=== PATIENT | female | born 1995 | race Caucasian/White ===

== ENCOUNTER 2017-07-19 18:13 | Emergency (ER) | payer BC, SELFPAY ==
[2017-07-19 18:14] VITALS: BP 139/74; PULSE 87; RESP 16; TEMP 36.8; O2SAT 100; BMI 25.5
[2017-07-19 18:54] LABS: Absolute Lymphocyte Count 1.79 X10^3/ul (0.83-4.51); Absolute Neutrophil Count 1.7 X10^3/uL (2.0-7.7); Basophil# 0.01 X10^3/uL; Basophil% 0.3 % (0-1); Eosinophil# 0.06 X10^3/uL; Eosinophils% 1.6 % (0-5); Hematocrit 40.2 % (37-47); Hemoglobin 13.4 g/dl (12.0-15.0); Lymphocyte # 1.79 X10^3/ul (4.0); Lymphocyte % 47.2 % (19-41); Mean Corp Hgb Conc 33.3 g/gl (32-36); Mean Corpuscular Hgb 30.2 pg (27.0-32.0); Mean Corpuscular Volume 90.7 fL (81-99); Mean Platelet Vol. 9.6 fl (6.2-12.0); Monocyte# 0.27 X10^3/uL; Monocyte% 7.1 % (0-10); Neutrophil # 1.66 X10^3/uL (2.7-7.7); Neutrophil % 43.8 % (47-70); POSITIVE COUNT NO; POSITIVE DIFFERENTIAL NO; POSITIVE MORPHOLOGY NO; Platelet Count 149 K/mm3 (150-450); RBC Distribution Width CV 12.8 % (11.6-14.6); RBC Distribution Width SD 42.6 fl (35.1-43.9); Red Blood Count 4.43 M/mm3 (4.2-5.4); White Blood Count 3.8 K/mm3 (4.4-11.0)
[2017-07-19] MEDS: Ketorolac 30 MG/ML Syringe 15 MG IV (18:56)
[2017-07-19] MEDS: 0.9% Normal Saline 1,000 ML 125 ML IV (18:56)
[2017-07-19] MEDS: Ondansetron 4 MG/2 ML Vial IV (18:56)
[2017-07-19 19:10] LABS: Bacteria 0 SEEN /hpf (None Seen); Mucous, Urine 0 SEEN /hpf (<or=2+); Red Blood Cells-Urine 0 SEEN /hpf (0-5); White Blood Cells 0 SEEN /hpf (0-5)
[2017-07-19 19:12] LABS: Color, Urine Straw (Yellow); Glucose, Dipstick Normal (Normal); Ketone-Dipstick Negative (Negative); Leukocyte Esterase-Dipstick Negative /ul (Negative); Nitrite-Dipstick Negative (Negative); Occult Blood-Urine Negative /ul (Negative); Protein-Dipstick Negative (Negative); Urine Bilirubin Dipstick Negative (Negative); Urine Clarity Clear (Clear); Urine Urobilinogen Normal (Normal)
[2017-07-19 19:17] LABS: ALB/GLOB Ratio 1.3 RATIO (0.9-2.4); AST(SGOT) 21 U/L (15-37); Alanine Aminotransfer ALT/SGPT 34 U/L (13-56); Alkaline Phosphatase 47 U/L (45-117); BUN 10 mg/dL (7-18); BUN/Creat Ratio 12.7 RATIO (10-20); Calcium,Total 8.5 mg/dL (8.5-10.1); Chloride 109 mmol/L (98-107); Creatinine, Serum 0.78 mg/dL (0.55-1.02); EST Glomerular Filtration Rate 96 mL/min (>60); Est Glom Filt Rate - Afr Amer 116 mL/min (>60); Estimated Creatinine Clearance 96.86 ml/min; Glucose 94 mg/dL (74-106); Lipase 122 U/L (73-393); Potassium 3.7 mmol/L (3.5-5.1); Sodium Level 142 mmol/L (136-145)
[2017-07-19 19:18] LABS: Anion Gap 8 (5-15)
--- NOTE | 2017-07-19 19:18 | US_ITS ---
STUDY: ABDOMINAL ULTRASOUND - RIGHT UPPER QUADRANT REASON FOR VISIT: Female, 22 years old. Right upper quadrant pain TECHNIQUE: Ultrasound evaluation of the right upper quadrant was performed with real-time and static bobo-scale imaging. TECHNICAL QUALITY: Adequate. COMPARISON: None. FINDINGS: Liver: The liver measures 12.5 cm. There is normal echogenicity of the liver. The bile ducts are within normal limits. There is hepatic color flow. The direction of portal flow is hepatopetal. There is no demonstrated mass lesion. Gallbladder: Normal distended gallbladder. The gallbladder wall measures 1.6 mm. There is a negative sonographic Morrison's sign. There is no pericholecystic fluid. There are no gallstones. Common Bile Duct (C.B.D.): The common bile duct measures 2.2 mm. Pancreas: Normal size of the head, body and tail of the pancreas. There is normal echogenicity of the pancreas. There is no demonstrated pancreatic mass or cyst. Right Kidney: Normal size of the right kidney. The right kidney measures 9.1 x 5.5 x 3.3 cm. Normal renal cortex. The right cortex measures 0.7 cm. There is no demonstrated renal mass or cyst. There is no right hydronephrosis. US/Gallbladder IMPRESSION: Normal right upper quadrant ultrasound examination. Electronically Signed: Danis Valera DO at 20:06 EST Tel [phone], Service support ,
[2017-07-19 19:22] LABS: Internal QC Validated? YES +Cl - CLEAR BKGD; Pregnancy, Urine Negative Negative
[2017-07-19 19:35] LABS: Squamous Epithelial Cells - UA 0-5 SEEN /hpf (5-10)
[2017-07-19 20:28] VITALS: BP 127/66; PULSE 66; RESP 16; O2SAT 100
--- NOTE | 2017-07-19 20:31 | ED.VISSUMM ---
- ER Visit Summary Date of Service: 07/19/17 Chief Complaint: Abdominal pain History of Present Illness: The patient is a 22 F presenting with abdominal pain that started today around 12 hours ago, gradually, became worse in the right upper quadrant, she took 800 mg of ibuprofen and it eased off but then returned later. She has been nauseated for about 5 days after eating only. Pain does radiate into her right low back. She cannot tell if it was colicky or not. Denies any fevers, diarrhea, blood in her stool, urinary symptoms, last normal menstrual period was unknown because she has been on the Depakote shot. She has had decreased p.o. intake and appetite. No history of abdominal surgeries or other medical problems. Physical Examination: Tender in her lateral right upper quadrant, but otherwise her abdomen is benign. There is no guarding or rebound. Her abdomen is soft with no distention and normal bowel sounds present. Lungs clear to auscultation throughout, no history of cough. Heart is regular without murmur. No CVA tenderness, tenderness in her back, or rashes noted. Test Results: Urinalysis is negative without any blood. CBC, chemistry, liver enzymes with lipase are negative/normal. is negative. Right upper quadrant ultrasound is normal. Emergency Department Course and Treatment: After IV fluids, Zofran, Toradol, she feels much better. She was reassured, however it is possible that she could be having gallbladder problems only diagnosable with biliary HIDA scan. I do not think she needs to be admitted, that may be indicated if she continues to have problems as an outpatient. Intraluminal disease is also possible here. It also could be muscular. Do not think she has pneumonia or any pulmonary etiology. It is not pleuritic. Does not appear likely that she has ureterolithiasis, there was no hydronephrosis seen in the right kidney on the ultrasound, and she has no blood in her urine. I advise her to follow-up with her PCP if she continues to have problems, will prescribe her Zofran to use as needed at home, and advise Motrin also as needed. Also advised to take daily H2 mike or PPI. She is comfortable with this plan. Treatment Plan: As above Disposition: Discharge home Impression: Right upper quadrant abdominal pain This note was generated with Pipedrive[employer] software. It may contain incorrect words, spelling, and punctuation that were not noted in review of the chart prior to signing ED Disposition - Plan for ED Patient: Disposition: Home or Assisted Living Chief Complaint: Abd Pain Instructions: ED Abdominal Pain Unkn Cause Prescriptions: Ondansetron [Zofran] 8 mg PO Q8H PRN PRN #12 tab PRN Reason: Nausea Referrals: Louis Cortez MD [Primary Care Provider] - 3-5 Days if not improving Additional Instructions: take a daily zantac or pepcid or tagamet or omeprazole.
== END 2017-07-19 20:58 | disposition home or self-care (01) ==
PROVIDERS: Emergency Provider Emergency Medicine; Family Provider Family Medicine; PCP Family Medicine
DX: R10.11 Right upper quadrant pain (principal); R11.0 Nausea
CPT/HCPCS: 76705; 80053; 81001; 81025; 83690; 85025; 96361; 96374; 96375; 99283; J7030; A4216; J2405

== ENCOUNTER 2017-10-13 02:54 | Emergency (ER) | payer BC, SELFPAY ==
[2017-10-13 02:55] VITALS: BP 131/74; PULSE 72; RESP 16; TEMP 36.9; O2SAT 100; BMI 24.0
--- NOTE | 2017-10-13 02:56 | ED.RN ---
CALLED FOR EKG PER RN REQUEST, NO OLD EKG'S IN MUSE
--- NOTE | 2017-10-13 03:09 | EKG12_ITS ---
Test Reason : PALPITATIONS Blood Pressure : / mmHG Vent. Rate : 069 BPM Atrial Rate : 069 BPM P-R Int : 130 ms QRS Dur : 084 ms QT Int : 396 ms P-R-T Axes : -04 067 027 degrees QTc Int : 424 ms Normal sinus rhythm Normal ECG Confirmed by CRYSTAL BAY, DEEPTI ([id number]), script editor JORGE LI ([id number]) on 10/14/2017 2:54:58 PM Referred By: REILLY Confirmed By:DEEPTI ROJAS MD
--- NOTE | 2017-10-13 03:15 | RAD_ITS ---
STUDY: X-RAY CHEST REASON FOR EXAM: Female, 22 years old. Heart palpitations TECHNIQUE: PA and lateral views of the chest. COMPARISON: None. FINDINGS: The lungs are clear and expanded. There is no demonstrated pleural abnormality. Normal size heart. Normal mediastinum and quinn. Normal visualized pulmonary arteries. Normal visualized aortic arch and descending thoracic aorta. Normal visualized thoracic spine. Normal visualized ribs, clavicles, and shoulders. There is no demonstrated abnormality of the visualized soft tissue structures of the upper abdomen. RAD/Chest PA and Lateral IMPRESSION: Normal x-ray examination of the chest. Electronically Signed: Moreno Soto MD at 3:50 EDT Tel , Service support ,
[2017-10-13 03:25] LABS: Absolute Lymphocyte Count 2.48 X10^3/ul (0.83-4.51); Absolute Neutrophil Count 1.7 X10^3/uL (2.0-7.7); Eosinophil# 0.07 X10^3/uL; Eosinophils% 1.5 % (0-5); Hematocrit 37.9 % (37-47); Hemoglobin 12.9 g/dl (12.0-15.0); Lymphocyte # 2.48 X10^3/ul (4.0); Lymphocyte % 53.4 % (19-41); Mean Corpuscular Hgb 31.1 pg (27.0-32.0); Mean Corpuscular Volume 91.3 fL (81-99); Mean Platelet Vol. 9.7 fl (6.2-12.0); Monocyte# 0.42 X10^3/uL; Monocyte% 9.1 % (0-10); Neutrophil # 1.66 X10^3/uL (2.7-7.7); Neutrophil % 35.8 % (47-70); Platelet Count 170 K/mm3 (150-450); RBC Distribution Width CV 12.6 % (11.6-14.6); RBC Distribution Width SD 41.4 fl (35.1-43.9); Red Blood Count 4.15 M/mm3 (4.2-5.4); White Blood Count 4.6 K/mm3 (4.4-11.0)
[2017-10-13 03:37] LABS: POSITIVE COUNT NO; POSITIVE DIFFERENTIAL NO; POSITIVE MORPHOLOGY NO
[2017-10-13 03:48] LABS: Anion Gap 8 (5-15); BUN 17 mg/dL (7-18); Calcium,Total 8.8 mg/dL (8.5-10.1); Chloride 107 mmol/L (98-107); EST Glomerular Filtration Rate 73 mL/min (>60); Est Glom Filt Rate - Afr Amer 88 mL/min (>60); Estimated Creatinine Clearance 75.55 ml/min; Glucose 93 mg/dL (74-106); Potassium 4.1 mmol/L (3.5-5.1); Sodium Level 141 mmol/L (136-145)
--- NOTE | 2017-10-13 03:58 | ED.DCSUM_ITS ---
- ER Visit Summary Date of Service: 10/13/17 Chief Complaint: Palpitations History of Present Illness: The patient is a 22 F who presents with palpitations. It is been present all day for greater than 12 hours. She states it is intermittent. It lasts a couple of seconds. She has some mild shortness of breath associated with those episodes but is not short of breath currently. She denies any chest pain. She denies recent illness such as fevers nausea vomiting or diarrhea. She denies excessive caffeine intake. She denies illicit drug use. Physical Examination: Afebrile vitals are stable Moist mucous membranes Neck supple Heart regular rate and rhythm Lungs are clear Abdomen soft Alert Test Results: EKG shows normal sinus rhythm at a rate of 69. CBC normal BMP normal troponin negative. Chest x-ray normal. TSH elevated at 5.90. Emergency Department Course and Treatment: Patient has remained in normal sinus rhythm during cardiac monitoring here. Her workup is unremarkable except for elevation of TSH which would be more consistent with hypothyroidism and I would not expect this to cause palpitations as in hyperthyroidism. She was advised of the laboratory finding and the need for outpatient follow-up for further thyroid studies. Her stance return for new or worsening symptoms was instructed on specific signs and symptoms to monitor for. She was discharged. Treatment Plan: [] Disposition: Discharge Impression: Palpitations Elevated TSH This note was generated with [employer] dictation software. It may contain incorrect words, spelling, and punctuation that were not noted in review of the chart prior to signing ED Disposition - Plan for ED Patient: Chief Complaint: Palpitations Referrals: Louis Cortez MD [Primary Care Provider] -
--- NOTE | 2017-10-13 03:58 | ED.DEP ---
ED Disposition - Plan for ED Patient: Chief Complaint: Palpitations Instructions: ED Palpitations Referrals: Louis Cortez MD [Primary Care Provider] -
[2017-10-13 04:07] VITALS: BP 122/74; PULSE 69; RESP 18; O2SAT 97
== END 2017-10-13 04:08 | disposition home or self-care (01) ==
PROVIDERS: Emergency Provider Emergency Medicine; Family Provider Family Medicine; PCP Family Medicine
DX: R00.2 Palpitations (principal); R79.89 Other specified abnormal findings of blood chemistry; R06.00 Dyspnea, unspecified
CPT/HCPCS: 71046; 80048; 84443; 84484; 85025; 93005; 99284; A4216

== ENCOUNTER 2018-01-02 12:53 | Emergency (ER) | payer OTHER, SELFPAY ==
[2018-01-02 12:54] VITALS: BP 121/69; PULSE 96; RESP 18; TEMP 36.6; O2SAT 100; BMI 24.0
--- NOTE | 2018-01-02 13:18 | ED.VISSUMM ---
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 On arrival her blood pressure is 100/80 she does report she woke today with a URI which is able to eat and drink she has no headache chest pain abdominal pain paresthesias, she denies she is on Depo-Provera, has not been ill with fever normal bowel bladder habits again she has been eating and drinking well she feels back to baseline now Physical Examination: [] Vital signs are within normal range she is in no distress resting comforting the bed her nose is obviously congested her throat is clear her neck is supple her lungs are clear heart tones are normal abdomen soft nontender upper lower extremities unremarkable neurologically she is awake alert moving all 4 Test Results: [] Emergency Department Course and Treatment: [] Long conversation with her mother clinically she is back to her baseline she is a healthy individual no past history no risk factors I explained we could obtain screening labs etc. but she declined that, the plan that we devised together with and she agreed to be we would provide her with a light food drink, with walker as long as she had no symptoms she will be discharged from emergency department fact she felt fine actually want to go back to work and I told her that we would consider that as long she had no symptoms Treatment Plan: [] Disposition: [] Home stable Impression: [] Transient lightheadedness resolved, URI This note was generated with [employer] dictation software. It may contain incorrect words, spelling, and punctuation that were not noted in review of the chart prior to signing ED Disposition - Plan for ED Patient: Chief Complaint: Hypotension Referrals: Louis Cortez MD [Primary Care Provider] -
--- NOTE | 2018-01-02 13:21 | ED.DCSUM_ITS ---
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 On arrival her blood pressure is 100/ 80 she does report she woke today with a URI which is able to eat and drink she has no headache chest pain abdominal pain paresthesias, she denies she is on Depo-Provera, has not been ill with fever normal bowel bladder habits again she has been eating and drinking well she feels back to baseline now Physical Examination: [] Vital signs are within normal range she is in no distress resting comforting the bed her nose is obviously congested her throat is clear her neck is supple her lungs are clear heart tones are normal abdomen soft nontender upper lower extremities unremarkable neurologically she is awake alert moving all 4 Test Results: [] Emergency Department Course and Treatment: [] Long conversation with her mother clinically she is back to her baseline she is a healthy individual no past history no risk factors I explained we could obtain screening labs etc. but she declined that, the plan that we devised together with and she agreed to be we would provide her with a light food drink, with walker as long as she had no symptoms she will be discharged from emergency department fact she felt fine actually want to go back to work and I told her that we would consider that as long she had no symptoms Treatment Plan: [] Disposition: [] Home stable Impression: [] Transient lightheadedness resolved, URI This note was generated with [employer] dictation software. It may contain incorrect words, spelling, and punctuation that were not noted in review of the chart prior to signing ED Disposition - Plan for ED Patient: Chief Complaint: Hypotension Referrals: Louis Cortez MD [Primary Care Provider] -
--- NOTE | 2018-01-02 13:21 | ED.DEP ---
ED Disposition - Plan for ED Patient: Chief Complaint: Hypotension Instructions: ED Hypotension Orthostatic, ED Upper Resp Infec No Abx Tx Referrals: Louis Cortez MD [Primary Care Provider] -
== END 2018-01-02 13:36 | disposition home or self-care (01) ==
LOC: ED 13:22
PROVIDERS: Emergency Provider Emergency Medicine; Family Provider Family Medicine; PCP Family Medicine
DX: J06.9 Acute upper respiratory infection, unspecified (principal); R42 Dizziness and giddiness
CPT/HCPCS: 99282

== ENCOUNTER → 2018-03-31 10:22 | Outpatient (CLI) | payer OTHER, SELFPAY ==
[2018-03-31 12:31] LABS: Chlamydia Trachomatis by PCR Negative (Negative); Neisserai gonorrhoeae by PCR Negative (Negative); Probe Check PASS; Sample Adequacy Control PASS; Specimen Processing Control PASS
== END ==
PROVIDERS: Visit Provider Obstetrics & Gynecology
DX: Z11.3 Encounter for screening for infections with a predominantly sexual mode of transmission (principal)
CPT/HCPCS: 87491; 87591

== ENCOUNTER 2019-01-24 19:19 | Emergency (ER) | payer OTHER, SELFPAY ==
[2019-01-24 19:20] VITALS: BP 137/84; PULSE 68; RESP 16; TEMP 36.8; O2SAT 100; BMI 25.4
[2019-01-24] MEDS: Mag Hydrox/Al Hydrox/Simeth 30 ML UDC PO (19:49)
[2019-01-24 19:53] LABS: Absolute Lymphocyte Count 1.35 X10^3/uL (0.83-4.51); Absolute Neutrophil Count 2.6 X10^3/uL (2.0-7.7); Basophil# 0.01 X10^3/uL; Basophil% 0.2 % (0-1); Eosinophil# 0.14 X10^3/uL; Eosinophils% 3.1 % (0-5); Hematocrit 38.9 % (37-47); Hemoglobin 12.7 g/dL (12.0-15.0); Lymphocyte # 1.35 X10^3/ul (4.0); Lymphocyte % 29.7 % (19-41); Mean Corp Hgb Conc 32.6 g/dL (32-36); Mean Corpuscular Hgb 30.3 pg (27.0-32.0); Mean Corpuscular Volume 92.8 fL (81-99); Mean Platelet Vol. 9.6 fl (6.2-12.0); Monocyte# 0.46 X10^3/uL; Monocyte% 10.1 % (0-10); NRBC Flagged by Analyzer 0 % (0-5); Neutrophil # 2.56 X10^3/uL (2.7-7.7); Neutrophil % 56.5 % (47-70); Platelet Count 161 K/mm3 (150-450); RBC Distribution Width CV 12.3 % (11.6-14.6); Red Blood Count 4.19 M/mm3 (4.2-5.4); White Blood Count 4.5 K/mm3 (4.4-11.0)
[2019-01-24] MEDS: 0.9% Normal Saline 1,000 ML 125 ML IV (20:00)
[2019-01-24 20:13] LABS: Internal QC Validated? YES +Cl - CLEAR BKGD; Pregnancy, Serum, hCG Quali. NEGATIVE Negative
[2019-01-24 20:18] LABS: ALB/GLOB Ratio 1.2 RATIO (0.9-2.4); AST(SGOT) 17 U/L (15-37); Alanine Aminotransfer ALT/SGPT 20 U/L (13-56); Albumin, Serum 3.7 g/dL (3.2-5.0); Alkaline Phosphatase 55 U/L (45-117); Anion Gap 5 (5-15); BUN 9 mg/dL (7-18); BUN/Creat Ratio 11.6 RATIO (10-20); Calcium,Total 8.4 mg/dL (8.5-10.1); Chloride 110 mmol/L (98-107); Creatinine, Serum 0.77 mg/dL (0.55-1.02); EST Glomerular Filtration Rate 97 mL/min (>60); Est Glom Filt Rate - Afr Amer 117 mL/min (>60); Estimated Creatinine Clearance 96.45 ml/min; Glucose 89 mg/dL (74-106); Lipase 117 U/L (73-393); Potassium 4.1 mmol/L (3.5-5.1); Protein, Total 6.7 g/dL (6.4-8.2); Sodium Level 142 mmol/L (136-145)
--- NOTE | 2019-01-24 20:33 | ED.DCSUM_ITS ---
- ER Visit Summary Date of Service: 01/24/19 Chief Complaint: [Abdominal pain] History of Present Illness: The patient is a 24 F [presents to the emergency department complaint of abdominal pain that started yesterday around 1:30 AM. Patient describes the pain is intermittent and in the epigastric region. Today the pain has been low more continuous. Patient states that food deftly seems to make it worse. She had some mild nausea but no vomiting. She denies any blood in her stool or black tarry stools. She denies taking any nonsteroidal anti- inflammatories. Last menstrual period was yesterday. Patient is G0, P0. Patient denies urinary symptoms. She has no medical history otherwise. No prio r abdominal surgeries.] Patient states the pain is currently a 2 or 3 out of 10. Physical Examination: [HEENT-PERRLA, EOMI. Cranial nerves II through XII grossly intact. TMs clear. Mucous membranes moist. No adenopathy. Cardiovascular-regular rate and rhythm without murmur or ectopy Lungs-clear to auscultation, chest wall stable without crepitus or subcu emphysema Abdomen-normoactive bowel sounds, soft. Patient has some mild tenderness to the epigastric region. There is no rebound, rigidity, or perineal signs. Negative Morrison sign. Extremities-intact ?4, normal range of motion, normal pulses, atraumatic] Test Results: [CBC with differential was normal. Chemistries were normal. LFTs were normal. Lipase was 117. Urinalysis normal. hCG was negative.] Emergency Department Course and Treatment: [Patient was given a GI cocktail and she did have some improvement in her discomfort with that.] Treatment Plan: [She will be started on Prevacid. At this point I do not feel any imaging is indicated. Patient advised to avoid spicy and greasy foods as well as acidic foods. Patient will be referred to general surgery [employer] [facility] for follow-up.] Disposition: [Discharged home stable condition. Patient advised to return if worsening pain, fever, vomiting, or conditions worsen anyway.] Impression: [Abdominal pain Gastritis] This note was generated with [employer] dictation software. It may contain incorrect words, spelling, and punctuation that were not noted in review of the chart prior to signing ED Disposition - Plan for ED Patient: Referrals: Louis Cortez MD [Primary Care Provider] -
[2019-01-24 20:41] LABS: Bacteria 0 SEEN /hpf (None Seen); Mucous, Urine 0 SEEN /hpf (<or=2+); Red Blood Cells-Urine 0 SEEN /hpf (0-5)
[2019-01-24 20:43] LABS: Color, Urine Yellow (Yellow); Glucose, Dipstick Normal (Normal); Ketone-Dipstick Negative (Negative); Leukocyte Esterase-Dipstick 25 /ul (Negative); Nitrite-Dipstick Negative (Negative); Occult Blood-Urine 10 /ul (Negative); Protein-Dipstick Negative (Negative); Urine Bilirubin Dipstick Negative (Negative); Urine Clarity Clear (Clear); Urine Urobilinogen Normal (Normal)
[2019-01-24 20:55] LABS: Squamous Epithelial Cells - UA 0-5 SEEN /hpf (5-10); White Blood Cells 0-5 SEEN /hpf (0-5)
--- NOTE | 2019-01-24 21:14 | ED.DEP ---
ED Disposition - Plan for ED Patient: Instructions: ABDOMINAL PAIN, Unknown Cause, (Female), GASTRITIS vs. ULCER Prescriptions: Lansoprazole [Prevacid] 30 mg PO DAILY #30 cap Prescription Printed Referrals: Louis Cortez MD [Primary Care Provider] - Sarah Loco MD [STAFF PHYSICIAN] - 3-5 Days
[2019-01-24 21:24] VITALS: BP 116/71; PULSE 84; RESP 16; O2SAT 100
== END 2019-01-24 21:25 | disposition home or self-care (01) ==
PROVIDERS: Emergency Provider Emergency Medicine; Family Provider Family Medicine; PCP Family Medicine
DX: K29.70 Gastritis, unspecified, without bleeding (principal)
CPT/HCPCS: 80053; 81001; 83690; 84703; 85025; 96360; 96361; 99284; J7030; A4216

== ENCOUNTER 2019-02-20 05:58 | Day surgery (SDC) | payer OTHER, SELFPAY ==
--- NOTE | 2019-02-14 18:59 | PCM.HP.BLA ---
History and Physical Date of Admission: 02/20/19 Micaela Villegas 1995 ? ?? CHIEF COMPLAINT: abdominal pain ? HPI: The patient is a 24 year old female who presents with sudden onset of epigastric abdominal pain went to ED [facility] on 01/24/19 states it was 10/10 pain on a scale of 1-10 with 10 being the worst. Labs were normal. A GI cocktail didn't help - she was given IV fluids, no xrays done, rec'd antacid and discharged. Patient denies heartburn or burning acid indigestion symptoms. States that the pain is sharp and crampy, mostly occurs after eating. She had pain for 5 days with above episode, and then it resolved on its own She is afraid to eat, doesn't want pain to return. During the above, she tried TUMS - it didn't help, she also tried antacids with no relief. 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 Denies fevers. Today, she feels only soreness in the area. ? ? PAST MEDICAL HISTORY ? NEGATIVE MEDICAL HISTORY ? ? PAST SURGICAL HISTORY ? PAST SURGICAL HISTORY OF ? 2013 ? wisdom teeth extraction ? TONSILLECTOMY AND ADENOIDECTOMY HX ? 2001 ? ? Current Outpatient Medications: OTC PRODUCT Take by mouth once daily. Nutritional supplement called Balance famotidine (PEPCID AC) 20 mg tablet Take 20 mg by mouth once daily. ? ? ALLERGIES: Bactrim [Sulfamethoxazole-Trimethoprim]; Sulfa (Sulfonamide Antibiotics) ? PERSONAL HISTORY: Social History Socioeconomic History Marital status: Tobacco Use Smoking status: Never Smoker Smokeless tobacco: Never Used Substance and Sexual Activity Alcohol use: Yes Comment: rarely Drug use: Never ? FAMILY HISTORY: History reviewed. No family history of gallbladder disease. ? REVIEW OF SYSTEMS: General: The patient denies fatigue, denies weight loss, denies weight gain, denies feeling hot, and denies feelings of cold. Eyes: The patient denies glaucoma, denies eye injury/surgery, wears glasses or contacts. Ear/Nose/Throat: The patient notes allergies, denies hayfever, denies ear infections, and denies bloody noses. Cardiovascular: The patient denies chest pain, denies heart disease, denies high blood pressure,denies cardiac stent, denies prior heart attack, denies irregular heart beat, denies high cholesterol, denies poor circulation, denies heart failure, other cardiac issues, denies claudication, denies cold feet, denies peripheral arterial stent. Respiratory: The patient denies tuberculosis, denies pneumonia, denies frequent cough, denies pulmonary embolism, denies shortness of breath, and denies coughing up blood. Gastrointestinal: The patient denies difficulty swallowing, denies acid reflux, denies ulcers, denies vomiting, denies jaundice/hepatitis, denies gallbladder problems, denies black or tarry stools, denies hemorrhoids, denies bleeding from rectum, denies diverticulitis, denies constipation, denies diarrhea, denies loss of stool control, and denies hernias. Kidney/Bladder: The patient denies kidney stones, denies urine infections, and denies bloody urine. Skin: The patient denies a history of skin cancer, denies bleeding/changing moles, and denies a history of skin rash. Neurologic: has migraine headaches occasionally, denies a history of epilepsy/convulsions, denies head/spinal injuries, and denies stroke/TIA. Psychiatric: The patient denies psychiatric medications, denies depression, and denies voices, denies substance abuse. Endocrine: The patient denies thyroid disorders, denies diabetes, and denies hormonal problems. Hematologic: The patient denies a history of bruising, denies bleeding, and denies anemia, denies blood clots. Infections: The patient denies a history of measles and mumps, denies rheumatic fever, and denies sexually transmitted diseases. Musculoskeletal: The patient notes back pain/injury, denies back problems, denies sciatica, denies knee/foot trouble, denies arthritis, or denies gout. ? PHYSICAL EXAMINATION: General: The patient is 24 year old female, well nourished, well hydrated in no acute distress. The patient is oriented to time, place, and person. VITALS: Blood pressure 94/50, pulse 89, temperature 37 ?C (98.6 ?F), temperature source Temporal Artery, height 162.6 cm (5' 4), weight 65.6 kg (144 lb 9.6 oz), SpO2 99 %. Body mass index is 24.82 kg/m?. Head ? Normocephalic. EOM intact with sclera clear and no icterus noted. Mouth with mucus membranes moist. Neck - supple with no jugular venous distention noted. Trachea is midline. No masses noted. Lungs ? clear to auscultation. Normal breath sounds . No rales/rhonchi/wheezing noted. No labored breathing noted, such as retractions. No cough heard. Heart ? normal S1 and S2 auscultated. No rubs/clicks/murmurs noted. Regular rate. Abdomen ? soft but tender in the epigastric and right upper quadrants, but no peritoneal signs. Normal bowel sounds. No abdominal bruits noted. No distention noted. No masses noted. Extremities ? no calf tenderness noted. No pitting edema noted. No obvious deformity noted. Skin ? normal skin integrity. Neurological ? cranial nerves II-XII intact. Normal motor strength in arms and legs. No localized numbness detected. Psych ? calm and appropriate ? IMPRESSION: epigastric and right upper quadrant abdominal pain - ? PLAN: I have discussed the above with the patient. I have offered laparoscopic cholecystectomy, possible cholangiograms. She has been counseled as to the description of the procedure. SHe has been counseled as to the risks of the procedure, including but not limited to: infection, bleeding, injury to any blood vessels/nerves, scar tissue, injury to any intrabdominal organs, injury to kidney/ureters, injury to bowel/bladder, injury to the common bile duct/biliary tree, bile leakage, intraabdominal abscess/bleeding, hernias at incisional sites, non resolution of symptoms, wound infections, possible open procedure, complications of anesthesia, postoperative pneumonia/cardiac problems/blood clots etc. the patient understands. Most importantly, this surgery may not alleviate her symptoms. She wishes to proceed. I have answered all questions to the patient?s satisfaction and the patient has no further questions. I have answered all questions to the patient?s satisfaction and the patient has no further questions. ? . Diagnoses: (R10.13) Epigastric abdominal pain (primary encounter diagnosis) Return to Clinic: The patient is instructed to follow-up with me as above
--- NOTE | 2019-02-20 06:10 | EKG12_ITS ---
Test Reason : PREOP Blood Pressure : / mmHG Vent. Rate : 067 BPM Atrial Rate : 067 BPM P-R Int : 156 ms QRS Dur : 088 ms QT Int : 414 ms P-R-T Axes : 062 057 029 degrees QTc Int : 437 ms Normal sinus rhythm with sinus arrhythmia Normal ECG Confirmed by LORRAINE REGAN ([id number]), communications editor JORGE LI ([id number]) on 03/03/2019 1:13:06 PM Referred By: Sarah Loco Confirmed By:LORRAINE REGAN
[2019-02-20 06:23] VITALS: BP 115/67; PULSE 57; RESP 16; TEMP 36.9; O2SAT 100; BMI 24.5
[2019-02-20] MEDS: Lactated Ringers 1,000 ML 100 ML IV (06:44)
--- NOTE | 2019-02-20 07:11 | DCINST_ITS ---
Discharge Diet: No Restrictions - avoid carbonated beverages for a couple of days drink plenty of fluids Discharge Activity: Return to Normal Activity, May not drive while taking narcotic pain medications. Lifting Restrictions: no lifting greater than 20 pounds for 2 weeks Call your doctor if your incision/area has: Continuous Slow Oozing, Foul Smelling Discharge Call your doctor if you observe: Fever of 101 or Higher Additional Dressing/Incision Instructions:: Leave dressings in place. May get wet in shower. Do not soak - no tub baths/swimming Additional Instructions: Recommended pain medication regimen: take 650 mg acetaminophen (Tylenol), then in three hours take 600 mg ibuprofen (Motrin), then in three hours take 650 mg acetaminophen, then in three hours take 600 mg ibuprofen, and so on, for 2-3 days Take prescription narcotic pain medication for breakthrough pain and at night Allergies/Adverse Reactions: Allergies Sulfa (Sulfonamide Antibiotics) Allergy (Verified 02/20/19 06:23) Hives sulfamethoxazole [From Bactrim] Allergy (Verified 02/20/19 06:23) Hives trimethoprim [From Bactrim] Allergy (Verified 02/20/19 06:23) Hives Medications to take at Discharge cholecalciferol (vitamin D3) 1,000 unit capsule 1,000 unit PO ONCE 05/03/17 omega-3 fatty acids 1,000 mg capsule 1,000 mg PO QDAY 05/03/17 Ascorbic Acid [Vitamin C] 500 mg PO DAILY 07/19/17 Vitamin B Complex [Balance B-100] 1 ea PO DAILY 02/13/19 Hydrocodone Bitart/Apap 5-325 [[place] 5MG-325MG] 1 tab PO Q8H PRN PRN 5 Days #15 tab 02/20/19 The following prescriptions were given: Hydrocodone Bitart/Apap 5-325 [[place] 5MG-325MG] 1 tab PO Q8H PRN PRN 5 Days #15 tab PRN Reason: Pain Prescription Printed Test Results: Test results from this visit will be discussed in further detail at your follow- up appointment, if applicable. Please Follow Up With: Sarah Loco MD - call When: to be seen in 1-2 weeks, please call for date and time, thank you
[2019-02-20 07:14] LABS: Internal QC Validated? YES +Cl - CLEAR BKGD; Pregnancy, Urine Negative Negative
--- NOTE | 2019-02-20 07:30 | RAD_ITS ---
STUDY: INTRAOPERATIVE CHOLANGIOGRAM. REASON FOR EXAM: Female, 24 years old. Laparoscopic cholecystectomy. FLUOROSCOPY TIME (if supplied): (0:09) minutes/seconds. Single views was submitted. TECHNIQUE: Intraoperative cholangiography was performed by the surgeon. Imaging was provided. COMPARISON: None. FINDINGS: A single view was submitted. The intrahepatic ducts are unremarkable. The common bile duct is not dilated. No intraluminal filling defect is seen. RAD/Cholangiogram/ O R,Initial IMPRESSION: Unremarkable intraoperative cholangiogram. Electronically Signed: Yasir Luz, at 10:33 EDT , Service support ,
--- NOTE | 2019-02-20 07:30 | GALL_PTH ---
PATIENT: JHON BLANCO LOC: [facility] U#:[id number] AGE/SX: 24/F ROOM: RE02/20/[address]: Dr. Sarah Loco MD : 1995 BED: DIS: 02/20/2019 SPEC #: [id number] RECD: 02/20/19 11:04 STATUS: STEVE REEvy #: [id number] EKLLY: 02/20/19 07:[address]: Sarah Loco DEPT: SURGICAL PATHOLOGY RECD BY: Jeffrey Pham ENTERED: 02/20/19 12:00 SP TYPE: DEEPIKA CALHOUN DR: Dr. Louis Cortez MD Tissues: Gallbladder, NOS Procedures: Surgery Specimen Level III HEADER OPERATION: Laparoscopic cholecystectomy with IOC PRE-OP DIAGNOSIS: Epigastric abdominal pain R10.13 TISSUE SUBMITTED: Gallbladder MICROSCOPIC DIAGNOSIS Gallbladder, cholecystectomy: Chronic cholecystitis. Benign pericystic lymph node. AM:vivi 02/23/19 MICROSCOPIC DESCRIPTION Slides are reviewed. GROSS DESCRIPTION Received is one container labeled with the patient's name and designated gallbladder. The specimen consists of a gallbladder measuring 6.5 cm in length and 2.5 cm in diameter. The external surface is pink-frey, smooth and glistening for the most part. Focally it is granular, hemorrhagic and contains cautery artifact. The gallbladder contains green-yellow mucoid bile. No stones are identified in the container or in the gallbladder. The mucosa is bile-stained and without any mass lesions. The gallbladder wall measures up to 0.2 cm in thickness. Peanut Vendor sections from the gallbladder and the cystic duct are submitted in one cassette. / SJ:vivi 02/20/19 TC:3 CPT: 37380
--- NOTE | 2019-02-20 08:42 | PCM.OPRPT ---
Report of Operation Date of Procedure: 02/20/19 Pre-Operative Diagnosis: epigastric abdominal pain Post-Operative Diagnosis: same Surgery/Procedure Performed:: laparoscopic cholecystectomy with cholangiograms Description of Surgical Findings:: normal intraoperative cholangiograms Type of Anesthesia:: General Anesthesiologist: Dawood Kline Specimen's removed: gallbladder and contents Estimated Blood Loss (mL): < 10 ml Fluids Replaced: 1100 ml RL Description of Procedure: After informed consent was given, the patient was brought to the Operating Room. Appropriate time out protocol was followed. She was then placed in the supine position. The patient was then placed under general endotracheal anesthesia. The abdomen was then prepped with a sterile surgical skin preparation and sterile surgical drapes were placed. The infraumbilical skin fold was grasped with penetrating clamps and the skin and subcutaneous tissues were infiltrated with 0.25% marcaine with epinephrine. A skin incision was then made with a 11 blade scalpel. The anterior abdominal wall was elevated and a Veress needle was carefully inserted into the intraabdominal cavity. It was checked to be in the proper position with a normal saline drop test. A CO2 pneumoperitoneum was then created. Once this was achieved, then the Veress needle was removed and an 11mm trocar was placed in its stead. A 10mm laparoscope was then inserted into the trocar and careful attention was directed to the intraabdominal contents. There was no evidence of injury to any intraabdominal organs from insertion of the Veress needle or the trocar. Under direct visualization, a 5mm subxiphoid trocar and two lateral 5mm right subcostal trocars were placed. The skin and subcutaneous tissues at these sites were infiltrated with 0.25% marcaine with epinephrine prior to placement of these trocars. Attention was then directed to the right upper quadrant of the abdomen. The liver appeared normal in texture and color. The gallbladder appeared normal in size and texture and color. Graspers were placed in the lateral trocars to grasp the distal aspect of the gallbladder and direct it cephalad and to grasp the gallbladder at Sena?s pouch and direct it laterally. Dissection then began on the proximal gallbladder continuing down to the area of the triangle of Calot to bluntly dissect out the cystic duct. The neck of the gallbladder was identified and blunt dissection continued to dissect out a segment of the cystic duct. A clip was then placed on the neck of the gallbladder. A small ductotomy was then made. A Ranfac catheter was brought in through a separate skin incision and placed into the cystic duct. An intraoperative cholangiogram was performed under fluoroscopy. The xray revealed no lesions in the common bile duct, arborization of the biliary tree, and good flow into the duodenum. The Ranfac catheter was then removed and two clips were placed proximal to the ductotomy and the cystic duct was then transected. The cystic artery was visualized and bluntly isolated and then two clips were placed proximally and one clip distally and then it was transected between the proximal and distal clips. The gallbladder was then from the liver bed using electrocautery. Any active bleeding was controlled with electrocautery. The gallbladder was placed in an Endobag and thus able to be brought out of the umbilical port. It was then forwarded to pathology for analysis. Using the irrigation device, lavage and aspiration was done to irrigate and clear the right upper quadrant of the abdomen. The liver bed was carefully examined. There was no evidence of bile leakage or bleeding. The cystic duct stump and cystic artery stump had their clips intact and there was no evidence of bile leakage or bleeding. The remainder of the abdomen was grossly normal. The CO2 was released and all trocars removed intact. The periumbilical fascia was approximated with a [id number] 0 vicryl suture. All skin incision were closed with 4-0 monocryl in a subdermal fashion. Cavilol and Steristrips were used to reinforce the skin closure. Sterile dressings were applied to all wounds. The patient was extubated and brought to the Recovery Room in stable condition. - Complications none noted - Admit VTE Documentation VTE Present on Admission: Yes VTE Mechan Device Prophylaxis: SCD's
[2019-02-20 09:01] VITALS: BP 115/67; BP 116/69; PULSE 69; RESP 20; TEMP 36.5; O2SAT 99
[2019-02-20 09:15] VITALS: BP 113/52; BP 115/67; PULSE 62; RESP 16; O2SAT 100
[2019-02-20 09:30] VITALS: BP 115/67; BP 95/60; PULSE 56; RESP 16; O2SAT 100
[2019-02-20 09:37] VITALS: BP 115/67; BP 96/44; PULSE 60; RESP 16; TEMP 37.6; O2SAT 100
[2019-02-20 11:57] VITALS: BP 106/59; BP 115/67; PULSE 61; RESP 16; TEMP 36.6; O2SAT 99
== END 2019-02-20 12:12 | disposition home or self-care (01) ==
LOC: SDC 06:00 → AC 06:00
PROVIDERS: Anesthesiology; Family Provider Family Medicine; PCP Family Medicine; Referring Provider Surgery; Visit Provider Surgery
PROC: (CPT 47610; principal; 2019-02-20 07:10)
DX: K81.1 Chronic cholecystitis (principal); Z88.2 Allergy status to sulfonamides
CPT/HCPCS: 00790; 47563; 74300; 76000; 81025; 88304; 93005; J7120; J2405

== ENCOUNTER 2019-02-22 16:00 | Observation (INO) | payer OTHER, SELFPAY ==
[2019-02-22 16:01] VITALS: BP 130/73; PULSE 67; RESP 17; TEMP 36.9; O2SAT 100; BMI 24.0
--- NOTE | 2019-02-22 16:22 | ED.VISSUMM ---
- ER Visit Summary Date of Service: 02/22/19 Chief Complaint: Abdominal pain History of Present Illness: The patient is a 24 F who presents with abdominal pain that began today. Patient had a cholecystectomy done 2 days ago. Patient states the pain woke her up at approximately 3 AM today. Patient states the pain began suddenly. Patient describes the pain as sharp. Patient states the pain is over the right upper quadrant. Patient states the pain is worse when she stands upright. Patient admits to nausea but denies any vomiting. Patient denies any dysuria or hematuria. Patient denies any diarrhea, melena, or hematochezia. Patient denies any fevers or chills. Patient does admit to some pain in her chest and shortness of breath. Patient states she has been taking [place] and ibuprofen with no relief. Physical Examination: Vital signs are stable. Patient is afebrile. Patient is in no acute distress. Oral mucosa is pink and moist. Neck is supple. Trachea is midline. There is no JVD noted. Heart was regular rate and rhythm. Lungs are essentially clear to auscultation. Respiratory effort was limited secondary to the abdominal pain. Abdomen is soft. Bowel sounds are diminished. There is right upper quadrant tenderness. There is some voluntary guarding noted. Cranial nerves II through XII are intact. There are no focal motor or sensory deficits noted. Test Results: CBC showed slight thrombocytopenia of 147. White blood cell count was normal. Hemoglobin was normal. Comprehensive metabolic profile was essentially within normal limits. Lipase was normal. CTA of the chest was obtained. There is no pulmonary embolism noted. CT scan of the abdomen and pelvis was obtained. There is fluid in the right upper quadrant including the gallbladder fossa which may indicate a bile leak. This was interpreted by the radiologist. Emergency Department Course and Treatment: Patient was given IV fluids, morphine, and Zofran here. Patient had no improvement of her pain with the morphine. Patient was given a dose of Dilaudid here. Patient her pain was improved but was still present. Case was discussed with Dr. Loco. She will admit the patient to her service and obtain a HIDA scan tomorrow. Patient and family understood and were agreeable with the plan. All questions were answered. Disposition: Admit to hospital Impression: Right upper quadrant abdominal pain This note was generated with [employer] software. It may contain incorrect words, spelling, and punctuation that were not noted in review of the chart prior to signing ED Disposition - Plan for ED Patient: Disposition: Acute Care Hospital [facility] Diagnosis: Right upper quadrant abdominal pain Referrals: Louis Cortez MD [Primary Care Provider] -
[2019-02-22] MEDS: Ondansetron 4 MG/2 ML Vial IV (16:31)
[2019-02-22] MEDS: 0.9% Normal Saline 1,000 ML 1000 ML IV (16:31)
[2019-02-22] MEDS: Morphine 4 MG/ML Syringe IV (16:31)
[2019-02-22 16:59] LABS: ALB/GLOB Ratio 1.2 RATIO (0.9-2.4); AST(SGOT) 30 U/L (15-37); Alanine Aminotransfer ALT/SGPT 49 U/L (13-56); Albumin, Serum 3.8 g/dL (3.2-5.0); Alkaline Phosphatase 56 U/L (45-117); Anion Gap 8 (5-15); BUN 4 mg/dL (7-18); Calcium,Total 8.9 mg/dL (8.5-10.1); Chloride 107 mmol/L (98-107); Creatinine, Serum 0.57 mg/dL (0.55-1.02); EST Glomerular Filtration Rate 137 mL/min (>60); Est Glom Filt Rate - Afr Amer 166 mL/min (>60); Estimated Creatinine Clearance 130.29 ml/min; Globulin 3.2 g/dL (2.2-4.2); Glucose 103 mg/dL (74-106); Lipase 59 U/L (73-393); Potassium 4.4 mmol/L (3.5-5.1); Sodium Level 139 mmol/L (136-145)
[2019-02-22 17:06] LABS: Absolute Lymphocyte Count 0.85 X10^3/uL (0.83-4.51); Absolute Neutrophil Count 5.4 X10^3/uL (2.0-7.7); Basophil# 0.01 X10^3/uL; Basophil% 0.1 % (0-1); Eosinophil# 0.04 X10^3/uL; Eosinophils% 0.6 % (0-5); Hematocrit 38.8 % (37-47); Hemoglobin 12.7 g/dL (12.0-15.0); Lymphocyte # 0.85 X10^3/ul (4.0); Lymphocyte % 12.5 % (19-41); Mean Corp Hgb Conc 32.7 g/dL (32-36); Mean Corpuscular Volume 91.5 fL (81-99); Mean Platelet Vol. 9.8 fl (6.2-12.0); Monocyte# 0.52 X10^3/uL; Monocyte% 7.7 % (0-10); NRBC Flagged by Analyzer 0 % (0-5); Neutrophil # 5.35 X10^3/uL (2.7-7.7); Neutrophil % 78.8 % (47-70); Platelet Count 147 K/mm3 (150-450); RBC Distribution Width CV 12.2 % (11.6-14.6); RBC Distribution Width SD 41.2 fl (35.1-43.9); Red Blood Count 4.24 M/mm3 (4.2-5.4); White Blood Count 6.8 K/mm3 (4.4-11.0)
--- NOTE | 2019-02-22 17:13 | CT_ITS ---
STUDY: CTA CHEST REASON FOR EXAM: Female, 24 years old. Chest pain. Status post cholecystectomy 2 days ago. RADIATION DOSAGE (If Supplied By Facility): CTDIvol = ( 7.63 ) mGy, DLP = ( 666.80 ) mGycm TECHNIQUE: The examination was performed with the intravenous administration of IV Isovue 370 75. Post-processing of the angiographic images was performed, with multiplanar reformation and 3D reconstruction. Individualized dose optimization techniques were used for this CT. COMPARISON: None. FINDINGS: Normal enhancement of the main pulmonary artery and right and left pulmonary arteries. Normal enhancement of the bilateral peripheral pulmonary arteries. There is no demonstrated pulmonary embolism. Normal thoracic aorta and visualized great vessels. There is no demonstrated aortic dissection. Normal heart and pericardium. Normal mediastinum. Normal hilar regions. Normal visualized trachea and bronchi. There is minimal bibasilar atelectasis within the lower lobes. Normal chest wall structures. Normal osseous structures. There is a separate dedicated CT report of the abdomen and pelvis. CT/CTA Chest W/WO Contrast IMPRESSION: No demonstrated pulmonary embolism or arterial dissection. Minimal bibasilar atelectasis within the lower lobes. Electronically Signed: Madison Ferraro MD at 18:25 EDT Tel , Service support ,
--- NOTE | 2019-02-22 17:13 | CT_ITS ---
STUDY: CT ABDOMEN AND PELVIS WITH CONTRAST REASON FOR EXAM: Female, 24 years old. Shortness of breath. Status post cholecystectomy 2 days ago. RADIATION DOSAGE (If Supplied By Facility): CTDIvol = ( 7.63 ) mGy, DLP = ( 666.80 ) mGycm TECHNIQUE: Transaxial images were obtained from the dome of the diaphragm to the symphysis pubis without oral contrast. IV 75mL Isovue-370 75 was administered. Sagittal and coronal images were reconstructed. Individualized dose optimization techniques were used for this CT. COMPARISON: None. FINDINGS: There is a separate dedicated CT report of the chest. There is intraperitoneal free air consistent with recent cholecystectomy associated with subcutaneous air along the right anterior chest wall and within the umbilicus. Normal liver. The gallbladder surgically absent. There is fluid within the gallbladder fossa as well as within the right upper quadrant. There is associated fluid within the pelvis. Normal spleen. Normal pancreas. Normal bilateral adrenal glands. Normal right kidney. Normal left kidney. Normal visualized stomach. Normal small intestine. Normal colon. The appendix is visualized and appears normal. Normal abdominal aorta. Normal inferior vena cava. Normal retroperitoneum. Normal urinary bladder. Normal osseous structures. CT/Abdomen/Pelvis W IV Cont ONLY IMPRESSION: Fluid within the right upper quadrant, including within the gallbladder fossa, as well as within the pelvis, cannot exclude an underlying bile leak. Intraperitoneal free air consistent with recent cholecystectomy associated with postsurgical changes along the right anterior abdominal wall. Electronically Signed: Madison Ferraro MD at 18:34 EDT Tel , Service support ,
[2019-02-22] MEDS: HYDROmorphone 1 MG/ML Syringe IV ×2 (17:15→19:56)
[2019-02-22 18:16] VITALS: BP 128/68; PULSE 68; RESP 14; O2SAT 98
[2019-02-22 20:14] VITALS: BMI 24.5
[2019-02-22 20:26] VITALS: BP 134/82; PULSE 74; RESP 24; TEMP 37.3; O2SAT 99
[2019-02-22 20:44] VITALS: PULSE 70
[2019-02-22] MEDS: Lactated Ringers 1,000 ML 100 ML IV (21:10)
[2019-02-22] MEDS: 0.9% NaCl Peripheral Flush Adult/Peds IV (21:10)
[2019-02-22] MEDS: HYDROmorphone 0.5 MG/0.5 ML SYRINGE IV (21:23)
[2019-02-22] MEDS: Ensure Clear 120 ML Liquid PO (22:02)
[2019-02-22] MEDS: Ketorolac 30 MG/ML Syringe IV (23:35)
[2019-02-23] VITALS (11 sets, daily range): BP systolic 116–132; BP diastolic 63–79; PULSE 57–95; RESP 12–18; TEMP 36.8–37.6; O2SAT 96–100; BMI 24.5
--- NOTE | 2019-02-23 00:20 | NURSING ---
Verbal report given to Saarh Olson RN who will be assuming care for this pt.
--- NOTE | 2019-02-23 05:55 | NM_ITS ---
STUDY: HEPATOBILARY SCINTGRAPHY REASON FOR EXAM: Female, 24 years old. Abdominal pain, history of recent cholecystectomy. COMPARISON STUDIES : NM - None. CR - Not available for review at this time. CT - Not available for review at this time. MR - Not available for review at this time. 5 Technique: After the administration of 5.6 mCi of technetium 99m Choletec intravenously, multiple scintigraphic images of the abdomen were obtained.. Findings: Homogeneous uptake of radiopharmaceutical throughout the hepatic parenchyma. Prompt excretion into the biliary tree first seen on the 10 minute image. Passage of radiopharmaceutical from the biliary tree into the small bowel ensuring patency of the common bile duct. On more delayed images there is a focal area of uptake in the gallbladder fossa which slightly increases in uptake over time but remains focal suggestive of a bile leak with biloma. NM/Hepatobilliary Imaging IMPRESSION: Suspect bile leak into a small biloma in the gallbladder fossa. Electronically Signed: Kulwant Dewitt MD at 11:06 EDT Tel , Service support ,
[2019-02-23] MEDS: Ketorolac 30 MG/ML Syringe IV ×3 (06:00→17:23)
[2019-02-23] MEDS: Lactated Ringers 1,000 ML 100 ML IV ×2 (06:01→15:58)
--- NOTE | 2019-02-23 07:34 | HP.PCM_ITS ---
History and Physical Date of Admission: 02/22/19 status post lap lynnette CHIEF COMPLAINT: abdominal pain ? HPI: Micaela is a 24 y/o WF who presents with intractable right upper quadrant abdominal pain. She underwent laparoscopic cholecystectomy with IOC on 02/20/19 for right upper quadrant abdominal pain. IOC was normal. She had some right upper quadrant abdominal pain after surgery but states that she woke up at 3:00 am yesterday morning with severe right upper quadrant abdominal pain. She presented to ED and was found to have normal WBC, was afebrile, normal LFTs, but CT scan had fluid in the area of the gallbladder fossa, and therefore, possible bile leak. Patient admitted for pain control and consideration of HIDA scan this morning. Patient also complaint of constipation, no bowel movement since prior to surgery ? ? PAST MEDICAL HISTORY ? NEGATIVE MEDICAL HISTORY ? ? PAST SURGICAL HISTORY PAST SURGICAL HISTORY OF 2013 wisdom teeth extraction TONSILLECTOMY AND ADENOIDECTOMY HX ? 2001 laparoscopic cholecystectomy with IOC 02/20/19 ? ? Current Outpatient Medications: OTC PRODUCT Take by mouth once daily. Nutritional supplement called Balance famotidine (PEPCID AC) 20 mg tablet Take 20 mg by mouth once daily. norco prn ? ? ALLERGIES: Bactrim [Sulfamethoxazole-Trimethoprim]; Sulfa (Sulfonamide Antibiotics) ? PERSONAL HISTORY: Social History Socioeconomic History Marital status: Tobacco Use Smoking status: Never Smoker Smokeless tobacco: Never Used Substance and Sexual Activity Alcohol use: Yes Comment: rarely Drug use: Never ? FAMILY HISTORY: History reviewed. No family history of gallbladder disease. ? REVIEW OF SYSTEMS: General: The patient denies fatigue, denies weight loss, denies weight gain, denies feeling hot, and denies feelings of cold. Eyes: The patient denies glaucoma, denies eye injury/surgery, wears glasses or contacts. Ear/Nose/Throat: The patient notes allergies, denies hayfever, denies ear infections, and denies bloody noses. Cardiovascular: The patient denies chest pain, denies heart disease, denies high blood pressure,denies cardiac stent, denies prior heart attack, denies irregular heart beat, denies high cholesterol, denies poor circulation, denies heart failure, other cardiac issues, denies claudication, denies cold feet, denies peripheral arterial stent. Respiratory: The patient denies tuberculosis, denies pneumonia, denies frequent cough, denies pulmonary embolism, denies shortness of breath, and den ies coughing up blood. Gastrointestinal: The patient denies difficulty swallowing, denies acid reflux, denies ulcers, denies vomiting, denies jaundice/hepatitis, denies gallbladder problems, denies black or tarry stools, denies hemorrhoids, denies bleeding from rectum, denies diverticulitis, denies constipation, denies diarrhea, denies loss of stool control, and denies hernias. Kidney/Bladder: The patient denies kidney stones, denies urine infections, and denies bloody urine. Skin: The patient denies a history of skin cancer, denies bleeding/changing moles, and denies a history of skin rash. Neurologic: has migraine headaches occasionally, denies a history of epilepsy/convulsions, denies head/spinal injuries, and denies stroke/TIA. Psychiatric: The patient denies psychiatric medications, denies depression, and denies voices, denies substance abuse. Endocrine: The patient denies thyroid disorders, denies diabetes, and denies hormonal problems. Hematologic: The patient denies a history of bruising, denies bleeding, and denies anemia, denies blood clots. Infections: The patient denies a history of measles and mumps, denies rheumatic fever, and denies sexually transmitted diseases. Musculoskeletal: The patient notes back pain/injury, denies back problems, denies sciatica, denies knee/foot trouble, denies arthritis, or denies gout. ? PHYSICAL EXAMINATION: General: The patient is 24 year old female, well nourished, well hydrated in no acute distress. The patient is oriented to time, place, and person. VITALS: Blood pressure 94/50, pulse 89, temperature 37 ?C (98.6 ?F), temperature source Temporal Artery, height 162.6 cm (5' 4), weight 65.6 kg (144 lb 9.6 oz), SpO2 99 %. Body mass index is 24.82 kg/m?. Head ? Normocephalic. EOM intact with sclera clear and no icterus noted. Mouth with mucus membranes moist. Neck - supple with no jugular venous distention noted. Trachea is midline. No masses noted. Lungs ? clear to auscultation. Normal breath sounds . No rales/rhonchi/wheezing noted. No labored breathing noted, such as retractions. No cough heard. Heart ? normal S1 and S2 auscultated. No rubs/clicks/murmurs noted. Regular rate. Abdomen ? soft but tender in the epigastric and right upper quadrants, but no peritoneal signs. Normal bowel sounds. No abdominal bruits noted. No distention noted. No masses noted. Extremities ? no calf tenderness noted. No pitting edema noted. No obvious deformity noted. Skin ? normal skin integrity. Neurological ? cranial nerves II-XII intact. Normal motor strength in arms and legs. No localized numbness detected. Psych ? calm and appropriate ? IMPRESSION: right upper quadrant abdominal pain, s/p laparoscopic cholecystectomy POD#3 ? PLAN: I have discussed the above with the patient. Will obtain HIDA scan today. If bile leak is present, she will required ERCP. Continue pain medications. Dulcolax for constipation
[2019-02-23] MEDS: 0.9% NaCl Peripheral Flush Adult/Peds IV ×2 (11:34→12:59)
--- NOTE | 2019-02-23 11:40 | NURSING ---
Have offered patient suppository x2, has refused both times
[2019-02-23 11:54] LABS: Internal QC Validated? YES +Cl - CLEAR BKGD; Pregnancy, Urine Negative Negative
--- NOTE | 2019-02-23 13:03 | PCM.PN.SRG ---
Patient Problems: Active and Suspected Problems (Last Reviewed 11/26/17 @ 08:07 by Gina Blackburn) Right upper quadrant abdominal pain (Acute) Subjective: Complaining of right upper quadrant pain - Physical Exam General: Alert, Oriented x3 Neck: No JVD Abdomen: Soft, Non-Distended, Tender Neurological: Cranial nerves II-XII grossly intact Psych/Mental Status: Normal Affect, Appropriate Vital Signs Temp Pulse Resp BP Pulse Ox 98.7 F 84 16 124/67 H 98 02/23/19 12:53 02/23/19 12:53 02/23/19 12:53 02/23/19 12:53 02/23/19 12:53 Oxygen Delivery Method Room Air Weight: 142 lb 10.225 oz Body Mass Index (BMI) 24.5 Intake and Output for Last 24 Hours 02/21/19 02/22/19 02/23/19 23:59 23:59 23:59 Intake Total 1400 / 1400 1495 / 1495 Output Total 600 / 600 500 / 500 Balance 800 / 800 995 / 995 Laboratory Tests Past 24 Hrs 02/22/19 02/22/19 02/23/19 16:30 16:30 11:45 WBC 6.8 RBC 4.24 Hgb 12.7 Hct 38.8 MCV 91.5 MCH 30.0 MCHC 32.7 RDW Std Deviation 41.2 RDW Coeff of Andrade 12.2 Plt Count 147 L MPV 9.8 Immature Gran % (Auto) 0.300 Neut % (Auto) 78.8 H Lymph % (Auto) 12.5 L Wilkinson % (Auto) 7.7 Eos % (Auto) 0.6 Baso % (Auto) 0.1 Absolute Neuts (auto) 5.4 Absolute Lymphs (auto) 0.85 Nucleated RBC % 0 Sodium 139 Potassium 4.4 Chloride 107 Carbon Dioxide 24.0 Anion Gap 8 BUN 4 L Creatinine 0.57 Estim Creat Clear Calc 130.29 Est GFR (MDRD) Af Amer 166 Est GFR (MDRD) Non-Af 137 BUN/Creatinine Ratio 7.0 L Glucose 103 Calcium 8.9 Total Bilirubin 0.60 AST 30 ALT 49 Alkaline Phosphatase 56 Total Protein 7.0 Albumin 3.8 Globulin 3.2 Albumin/Globulin Ratio 1.2 Lipase 59 L Urine Test Negative Clinical Impression(s) from Imaging Studies Abdomen/Pelvis CT 02/22/19 17:13 IMPRESSION: Fluid within the right upper quadrant, including within the gallbladder fossa, as well as within the pelvis, cannot exclude an underlying bile leak. Intraperitoneal free air consistent with recent cholecystectomy associated with postsurgical changes along the right anterior abdominal wall. Electronically Signed: Madison Ferraro MD at 18:34 EDT Tel , Service support , Chest CTA 02/22/19 17:13 IMPRESSION: No demonstrated pulmonary embolism or arterial dissection. Minimal bibasilar atelectasis within the lower lobes. Electronically Signed: Madison Ferraro MD at 18:25 EDT Tel , Service support , Hepatobiliary Scan Nuclear Medicine 02/23/19 05:55 IMPRESSION: Suspect bile leak into a small biloma in the gallbladder fossa. Electronically Signed: Kulwant Dewitt MD at 11:06 EDT Tel , Service support , Medical Necessity - Tobacco Use Smoking Status: Never smoker Assessment/Plan All Active Problems (Last Reviewed 11/26/17 @ 08:07 by Gina Blackburn) Right upper quadrant abdominal pain (Acute) Staph skin infection (Acute) Dysuria (Acute) Gastroenteritis (Acute) 24-year-old female with bile leak 1. Patient had a HIDA scan today which showed bile leak in the right upper quadrant. I was consulted for ERCP. I discussed ERCP with stent placement with the patient in detail. I discussed the risks including but not limited to bleeding, infection, perforation of the bile duct or bowel, pancreatitis. Patient understands stent will need to be removed at a later date and consents for surgery. Theodore Villafuerte MD Pager: [facility] [address] [place] [address], [address] [place] [address] Office:
--- NOTE | 2019-02-23 13:56 | CHAPLAIN ---
Type of Pastoral Visit _x__ Initial Visit ___ Follow-up Visit ___ On-call Visit ___ General Patient Visit ___ Spiritual Assessment ___ Family Conference ___ Bereavement ___ Rapid Response ___ Code Blue ___ Other (describe below) Pastoral Care Referral From _x__ Patient ___ Family ___ Nurse ___ Physician ___ Hearing Aid Specialist ___ Lumber Press Operator ___ Other (describe below) Sacrament/Intervention _x__ Active listening ___ Anointing ___ Methodist ___ Bereavement ___ Communion ___ Leida exploration ___ ___ Life review _x__ Prayer ___ Reconciliation ___ Sacrament of Sick ___ Supportive presence ___ Wedding ___ Other (describe below) Pastoral Comments
--- NOTE | 2019-02-23 14:50 | RAD_ITS ---
ERCP next INDICATION: Abdominal pain. Fluoroscopy time: 0:57 Images obtained: 3 FINDINGS: 2 spot fluoroscopic images of an endoscopic retrograde cholangiogram are submitted for interpretation. There is no evidence of filling defect within the common bile duct to suggest common duct stone. No stricture or dilatation. IMPRESSION: Normal ERCP. Electronically Signed: Kulwant Dewitt MD at 15:17 EDT Tel , Service support , RAD/ERCP Biliary/Pancreas
--- NOTE | 2019-02-23 15:19 | OP.ENDO_ITS ---
02/23/2019 Louis Cortez Re : ERCP procedure for Micaela Villegas Dear [place] This procedure was performed on Saturday, February 23, 2019. My impressions and recommendations are as follows: Impressions : - A bile leak was found. - A biliary sphincterotomy was performed. - One plastic stent was placed into the common bile duct. Recommendations : - Return to endoscopist for stent removal at ERCP in 8 weeks. - Return patient to [facility] for ongoing care. - Clear liquid diet. My findings are described in the full procedure note, which is enclosed. If I can be of further assistance, please feel free to contact me at Doctor phone number(s): , Work: . Sincerely, Theodore Villafuerte MD 02/23/2019 3:18:43 PM This report has been signed electronically.
[2019-02-24] MEDS: Ketorolac 30 MG/ML Syringe IV ×2 (00:29→05:16)
[2019-02-24] MEDS: Lactated Ringers 1,000 ML 100 ML IV (00:30)
[2019-02-24] MEDS: Ondansetron 4 MG/2 ML Vial IV (00:33)
[2019-02-24 00:35] VITALS: BP 121/67; PULSE 56; RESP 14; TEMP 36.8; O2SAT 96
[2019-02-24 05:14] VITALS: BP 124/71; PULSE 63; RESP 14; TEMP 36.7; O2SAT 98
--- NOTE | 2019-02-24 08:22 | PCM.PN.SRG ---
Patient Problems: Active and Suspected Problems (Last Reviewed 11/26/17 @ 08:07 by Gina Blackburn) Right upper quadrant abdominal pain (Acute) Subjective: patient feels much improved, states that pain is around a 2 out of 10 tolerating diet had bowel movement yesterday states that toradol works best for pain control - Physical Exam General: Alert, Oriented x3 Oral: Moist Mucosa Neck: Supple Lungs: Normal air movement Abdomen: Bowel Sounds Present - dressings intact, Soft Vital Signs Temp Pulse Resp BP Pulse Ox 98.0 F 63 14 124/71 H 98 02/24/19 05:14 02/24/19 05:14 02/24/19 05:14 02/24/19 05:14 02/24/19 05:14 Oxygen Delivery Method Room Air Weight: 64.7 kg Body Mass Index (BMI) 24.5 Intake and Output for Last 24 Hours 02/22/19 02/23/19 02/24/19 23:59 23:59 23:59 Intake Total 1400 / 1400 2735 / 2735 1501.67 / 1501.67 Output Total 600 / 600 1300 / 1300 1999 / 1999 Balance 800 / 800 1435 / 1435 -498.33 / -498.33 Laboratory Tests Past 24 Hrs 02/23/19 11:45 Urine Test Negative Medical Necessity - Tobacco Use Smoking Status: Never smoker Assessment/Plan All Active Problems (Last Reviewed 11/26/17 @ 08:07 by Gina Blackburn) Right upper quadrant abdominal pain (Acute) Staph skin infection (Acute) Dysuria (Acute) Gastroenteritis (Acute) Impression: s/p laparoscopic cholecystectomy POD#4 with bile leak s/p ERCP with stent placement POD#1 Plan: discharge to home, follow up with me next week toradol for pain medication and patient has asked for zofran
--- NOTE | 2019-02-24 08:26 | DCINST_ITS ---
Discharge Diet: No Restrictions Discharge Activity: Return to Normal Activity, May not drive while taking narcotic pain medications. Lifting Restrictions: no lifting greater than 20 pounds for two weeks after surgery Call your doctor if your incision/area has: Continuous Slow Oozing, Foul Smelling Discharge Call your doctor if you observe: Fever of 101 or Higher Additional Dressing/Incision Instructions:: Leave dressings in place. If they become soiled or partially open, may remove but then leave wounds uncovered - may get wet in shower Allergies/Adverse Reactions: Allergies Sulfa (Sulfonamide Antibiotics) Allergy (Verified 02/22/19 16:01) Hives sulfamethoxazole [From Bactrim] Allergy (Verified 02/22/19 16:01) Hives trimethoprim [From Bactrim] Allergy (Verified 02/22/19 16:01) Hives Medications to take at Discharge cholecalciferol (vitamin D3) 1,000 unit capsule 1,000 unit PO DAILY 05/03/17 Hydrocodone Bitart/Apap 5-325 [Brooker 5MG-325MG] 1 tab PO Q8H PRN PRN 5 Days #15 tab 02/20/19 Ibuprofen [Motrin] 600 mg PO Q6H PRN PRN 02/22/19 Ketorolac [Toradol] 10 mg PO Q8H 5 Days #15 tab 02/24/19 Ondansetron HCl [Zofran] 4 mg PO Q8H PRN 2 Days #6 tab 02/24/19 The following prescriptions were given: Ketorolac [Toradol] 10 mg PO Q8H 5 Days #15 tab Prescription Printed Ondansetron HCl [Zofran] 4 mg PO Q8H PRN 2 Days #6 tab PRN Reason: Nausea/Vomiting Prescription Printed Primary Care Physician: Louis Cortez MD [Primary Care Provider] - Test Results: Test results from this visit will be discussed in further detail at your follow- up appointment, if applicable. Please Follow Up With: Sarah Loco MD - call When: next week, please call for date and time, thank you
--- NOTE | 2019-02-24 08:28 | PCM.DC.BLA ---
Discharge Summary Date of Admission: 02/22/19 Date of Discharge: 02/24/19 Summary: Micaela is an otherwise healthy WF who underwent laparoscopic cholecystectomy with cholangiograms on 02/20/19. She reported increasing and intractable right upper quadrant abdominal pain postoperatively to the point where she presented to [facility] ED on 02/22/19. She was found to have fluid collection in the gallbladder fossa. HIDA scan on 02/23/19 revealed bile leak. Patient underwent ERCP on 02/23/19 and found to have small bile leak at duct of [place]. She underwent sphincterotomy and stent placement. She tolerated procedure well, and had normal post procedure recovery. Discharged to home the next day - tolerating regular diet with vital signs stable and minimal abdominal pain. Patient Problems: Active and Suspected Problems (Last Reviewed 11/26/17 @ 08:07 by Gina Blackburn) Right upper quadrant abdominal pain (Acute) - Physical Exam Vital Signs Temp Pulse Resp BP Pulse Ox 98.0 F 63 14 124/71 H 98 02/24/19 05:14 02/24/19 05:14 02/24/19 05:14 02/24/19 05:14 02/24/19 05:14 Oxygen Delivery Method Room Air Weight: 64.7 kg Body Mass Index (BMI) 24.5 Intake and Output for Last 24 Hours 02/22/19 02/23/19 02/24/19 23:59 23:59 23:59 Intake Total 1400 / 1400 2735 / 2735 1501.67 / 1501.67 Output Total 600 / 600 1300 / 1300 2000 / 1999 Balance 800 / 800 1435 / 1435 -498.33 / -498.33 Laboratory Tests Past 24 Hrs 02/23/19 11:45 Urine Test Negative
[2019-02-24 08:58] VITALS: BP 117/70; PULSE 65; RESP 18; TEMP 37.2; O2SAT 98
== END 2019-02-24 09:08 | disposition home or self-care (01) ==
LOC: ED 19:22 → MS3 20:16
PROVIDERS: Anesthesiology; Surgery; Admitting Provider Surgery; Emergency Provider Emergency Medicine; Family Provider Family Medicine; PCP Family Medicine; Referring Provider Surgery; Visit Provider Surgery
PROC: (CPT 43260; principal; 2019-02-23 14:00)
DX: K83.8 Other specified diseases of biliary tract (principal); Z90.49 Acquired absence of other specified parts of digestive tract
CPT/HCPCS: 43274; 71275; 74177; 74330; 76000; 78226; 80053; 81025; 83690; 85025; 96361; 96374; 96375; 96376; 99218; 99284; A9537; J7030; J7120; Q9967; A4216; G0378; J2405

== ENCOUNTER 2019-04-20 09:16 | Day surgery (SDC) | payer OTHER, SELFPAY ==
[2019-03-30 09:21] VITALS: BMI 24.5
--- NOTE | 2019-04-20 09:23 | PCM.HP.BLA ---
Problem List (1) Bile leak, postoperative Status: Acute History and Physical Date of Admission: 04/20/19 Intake Vital Signs 03/30/19 Body Mass Index (BMI) 24.5 Intake Visit Reasons: F/U ERCP 02-23-2019 Chief Complaint: post ERCP Pipe Stem Sawyer Required: No Is patient in pain?: No Allergies Sulfa (Sulfonamide Antibiotics) Allergy (Verified 02/22/19 16:01) Hives sulfamethoxazole [From Bactrim] Allergy (Verified 02/22/19 16:01) Hives trimethoprim [From Bactrim] Allergy (Verified 02/22/19 16:01) Hives Is last menstrual period known: No Post menopausal: No Patient : No PFSH Medical History [place] teeth extracted (Acute) Surgical History (Updated 03/30/19 @ 09:21 by Lisha Mcghee) History of ERCP (Acute ~02/2019) History of cholecystectomy (Acute ~02/2019) History of tonsillectomy (Acute) Family History Other Cancer Diabetes Heart disease Hypercholesterolemia Hypertension Social History (Updated 03/30/19 @ 10:06 by Theodore Villafuerte MD) Smoking Status: Never smoker alcohol intake: never HPI HPI HPI: JHON BLANCO, is a 24 F who presents to the office today for HPI HPI HPI: JHON BLANCO, is a 24 F who presents to the office today for Follow-up after ERCP. Patient had postoperative bile leak after laparoscopic cholecystectomy. She had ERCP with stent placement 5 weeks ago. She is doing well with no complaints at this time. ROS General General: No weight change or fatigue Cardio Cardiovascular: No murmur, pacemaker, heart disease, atrial fibrillation, high blood pressure, heart attack, heart stent, palpitations, shortness of breat with exertion or chest pain Psych Psychiatric: No depression or anxiety Resp Respiratory: No shortness of breath, No sleep apnea, No cough, No COPD, No asthma, No emphysema, No wheezing Gastro Gastrointestinal: No abdominal pain, No nausea or vomiting, No diarrhea, No constipation, No blood in stool, No acid reflux, No hemorrhoids, No ulcers, No gallbladder problem, No black,tarry stools Joce Hematologic: No blood thinners Exam Const General: cooperative Orientation: alert, oriented x3 Resp Effort & Inspection: normal respiratory effort Auscultation: clear to auscultation bilaterally Cardio Rate: regular rate Rhythm: regular rhythm Heart Sounds: no murmurs GI Inspection: non-distended Palpation: soft, nontender Assessment & Plan Problems 1. Bile leak, postoperative K91.89; K83.8 Plan The patient had a postoperative bile leak in the gallbladder fossa. Stent was placed using ERCP 5 weeks ago. I will take the patient back for repeat ERCP with stent removal and cholangiogram at least 2 weeks from now. I discussed ERCP with the patient again in detail and the patient understands the risks and is willing to proceed. Theodore Villafuerte MD Pager: [facility] [address] [place] [address] [place] [address] Office:
--- NOTE | 2019-04-20 09:33 | EKG12_ITS ---
Test Reason : PRE OP Blood Pressure : / mmHG Vent. Rate : 067 BPM Atrial Rate : 067 BPM P-R Int : 122 ms QRS Dur : 084 ms QT Int : 410 ms P-R-T Axes : 034 067 035 degrees QTc Int : 433 ms Normal sinus rhythm Normal ECG When compared with ECG of 20-FEB-2019 06:17, No significant change was found Confirmed by LORRAINE REGAN ([id number]), pigs feet finisher JORGE LI ([id number]) on 04/24/2019 11:35:53 AM Referred By: Louis Cortez Confirmed By:LORRAINE REGAN
[2019-04-20 09:52] VITALS: BP 126/64; PULSE 70; RESP 16; TEMP 36.4; O2SAT 100; BMI 25.0
[2019-04-20 09:53] LABS: Internal QC Validated? YES +Cl - CLEAR BKGD; Pregnancy, Urine Negative Negative
[2019-04-20] MEDS: Lactated Ringers 1,000 ML 100 ML IV (09:58)
--- NOTE | 2019-04-20 10:25 | RAD_ITS ---
There is contrast within the biliary system as well as common hepatic and bile duct which is occluded by a balloon no filling defects noted within the biliary system to suggest the stone, tumor or stenosis. There has been resection of the gallbladder and cystic duct . IMPRESSION: Negative ERCP but no images of free spillage into the duodenum. Electronically Signed: Nisha Kelly, at 11:43 EST Tel , Service support , RAD/ERCP Biliary Only
[2019-04-20 11:16] VITALS: BP 125/63; BP 126/64; PULSE 86; RESP 16; TEMP 36.7; O2SAT 97
--- NOTE | 2019-04-20 11:25 | OP.ERCP_ITS ---
Patient Name: Micaela Villegas Procedure Date: 04/20/2019 10:17 AM Date of : 1995 Age: 24 Procedure: ERCP Indications: Follow-up of bile leak Providers: Theodore Villafuerte MD Referring MD: Louis Cortez Medicines: General Anesthesia Patient Profile: This is a 24 year old female. Refer to note in patient chart for documentation of history and physical. Complications: No immediate complications. Estimated blood loss: Minimal. Procedure: Pre-Anesthesia Assessment: - Prior to the procedure, a History and Physical was performed, and patient medications and allergies were reviewed. The patient's tolerance of previous anesthesia was also reviewed. The risks and benefits of the procedure and the sedation options and risks were discussed with the patient. All questions were answered, and informed consent was obtained. Prior Anticoagulants: The patient has taken no previous anticoagulant or antiplatelet agents. After reviewing the risks and benefits, the patient was deemed in satisfactory condition to undergo the procedure. After obtaining informed consent, the scope was passed under direct vision. Throughout the procedure, the patient's blood pressure, pulse, and oxygen saturations were monitored continuously. The [id number] endoscope was introduced through the mouth, and advanced to the duodenum and used to inject contrast into the bile duct. The ERCP was accomplished without difficulty. The patient tolerated the procedure well. Scope In: 10:42:00 AM Scope Out: 10:49:36 AM Total Procedure Duration Time 0 hours 7 minutes 36 seconds Findings: One stent was removed from the biliary tree using a snare. A 0.035 inch x 260 cm straight Dreamwire was passed into the biliary tree. 12 mm balloon was then placed into distal CBD and inflated. Pressure cholangiogram was performed and no evidence of continued bile leak was identified. Wire and balloon were removed. The endoscope was withdrawn from the patient. Impression: - One stent was removed from the biliary tree. - No biliary leaks seen. Recommendation: - Discharge patient to home. - Resume regular diet. - Return to my office PRN. Procedure Code(s): --- Professional --- 59392, Endoscopic retrograde cholangiopancreatography (ERCP); with removal of foreign body(s) or stent(s) from biliary/pancreatic duct(s) Diagnosis Code(s): --- Professional --- Z46.59, Encounter for fitting and adjustment of other gastrointestinal appliance and device K83.8, Other specified diseases of biliary tract CPT copyright 2017 [employer]. All rights reserved. The codes documented in this report are preliminary and upon thread trimmer review may be revised to meet current compliance requirements. Theodore Villafuerte MD 04/20/2019 11:24:28 AM This report has been signed electronically. Number of Addenda: 0 Note Initiated On: 04/20/2019 10:17 AM
[2019-04-20 11:30] VITALS: BP 114/61; BP 126/64; PULSE 63; RESP 16; O2SAT 96
[2019-04-20 11:45] VITALS: BP 115/51; BP 126/64; PULSE 67; RESP 16; O2SAT 97
[2019-04-20 11:55] VITALS: BP 111/51; BP 126/64; PULSE 78; RESP 16; TEMP 36.9; O2SAT 96
[2019-04-20 12:16] VITALS: BP 126/64
== END 2019-04-20 12:22 | disposition home or self-care (01) ==
LOC: EN 09:16 → AC 09:18
PROVIDERS: Anesthesiology; Family Provider Family Medicine; PCP Family Medicine; Referring Provider Family Medicine; Visit Provider Surgery
PROC: (CPT 43260; principal; 2019-04-20 09:55)
DX: Z46.59 Encounter for fitting and adjustment of other gastrointestinal appliance and device (principal); K91.89 Other postprocedural complications and disorders of digestive system; K83.8 Other specified diseases of biliary tract; Z90.49 Acquired absence of other specified parts of digestive tract
CPT/HCPCS: 43275; 74328; 76000; 81025; 93005; J7120; J2405

== ENCOUNTER → 2019-05-26 10:50 | Outpatient (CLI) | payer OTHER, SELFPAY ==
[2019-05-26 12:43] LABS: Vitamin D,25 Hydroxy 35.4 ng/mL (29.95-100.01)
[2019-05-29 13:26] LABS: HPV Reflexed? NOT INDICATED
== END ==
PROVIDERS: Visit Provider Obstetrics & Gynecology
DX: E55.9 Vitamin D deficiency, unspecified (principal); Z12.4 Encounter for screening for malignant neoplasm of cervix
CPT/HCPCS: 36415; 82306; 88175; G0145

== ENCOUNTER → 2020-07-12 10:11 | Outpatient (CLI) | payer OTHER, SELFPAY ==
[2019-12-31 08:08] VITALS: BMI 25.0
[2020-07-12 10:45] LABS: Color, Urine Yellow (Yellow); Glucose, Dipstick Normal (Normal); Ketone-Dipstick Negative (Negative); Leukocyte Esterase-Dipstick Negative /ul (Negative); Nitrite-Dipstick Negative (Negative); Occult Blood-Urine Negative /ul (Negative); Protein-Dipstick Negative (Negative); Specific Gravity, Urine 1.015 (1.002-1.030); Urine Bilirubin Dipstick Negative (Negative); Urine Clarity Sl. Cloudy (Clear); Urine Urobilinogen Normal (Normal); Urine pH 6.5 (5.0 - 8.0)
[2020-07-12 10:47] LABS: Absolute Neutrophil Count 3.5 X10^3/uL (2.0-7.7); Basophil# 0.01 X10^3/uL; Basophil% 0.2 % (0-1); Eosinophil# 0.07 X10^3/uL; Eosinophils% 1.3 % (0-5); Hematocrit 39.2 % (37-47); Lymphocyte % 23.1 % (19-41); Mean Corp Hgb Conc 33.2 g/dL (32-36); Mean Corpuscular Hgb 30.6 pg (27.0-32.0); Mean Corpuscular Volume 92.2 fL (81-99); Mean Platelet Vol. 9.7 fl (6.2-12.0); Monocyte% 7.7 % (0-10); NRBC Flagged by Analyzer 0 % (0-5); Neutrophil # 3.51 X10^3/uL (2.7-7.7); Neutrophil % 67.5 % (47-70); Platelet Count 152 K/mm3 (150-450); RBC Distribution Width CV 12.5 % (11.6-14.6); RBC Distribution Width SD 42.4 fl (35.1-43.9); Red Blood Count 4.25 M/mm3 (4.2-5.4); White Blood Count 5.2 K/mm3 (4.4-11.0)
[2020-07-12 10:54] LABS: Amphetamine Urine VISTA NEGATIVE (<1000 ng/mL); Barbiturate Urine VISTA NEGATIVE (< 200 ng/mL); Benzodiazepine Urine VISTA NEGATIVE (< 200 ng/mL); Cocaine Urine VISTA NEGATIVE (< 300 ng/mL); Ecstacy Urine VISTA NEGATIVE (< 500 ng/mL); Methadone Urine VISTA NEGATIVE (< 300 ng/mL); PCP Urine VISTA NEGATIVE (< 25 ng/mL); THC Urine VISTA NEGATIVE (< 50 ng/mL); Vista UDS pH Range 6
[2020-07-12 11:32] LABS: Thyroid Stim Hormone (TSH) 2.14 uIU/mL (0.358-3.74)
[2020-07-12 12:27] LABS: HIV - WCH Non-Reactive (Nonreactive); Hepatitis B Surface Antigen Non-Reactive (Nonreactive); Hepatitis C Antibody Non-Reactive (Nonreactive); Rubella IgG Reactive (Nonreactive)
[2020-07-14 01:10] LABS: Prenatal RPR NONREACTIVE (NONREACTIVE)
[2020-07-14 03:07] LABS: Chlamydia By Nucleic Acid AMP Negative (Negative)
[2020-07-14 13:03] LABS: Gonococcus By Nucleic Acid AMP Negative (Negative)
== END ==
PROVIDERS: PCP Family Medicine; Visit Provider Obstetrics & Gynecology
DX: Z11.3 Encounter for screening for infections with a predominantly sexual mode of transmission (principal); Z34.81 Encounter for supervision of other normal pregnancy, first trimester
CPT/HCPCS: 36415; 80307; 81002; 84443; 85025; 86703; 86762; 86803; 87340; 87491; 87591

== ENCOUNTER 2020-08-09 18:03 | Emergency (ER) | payer OTHER, SELFPAY ==
[2019-12-31 08:08] VITALS: BMI 25.0
[2020-08-09 18:03] VITALS: BP 143/89; PULSE 92; RESP 16; TEMP 37; O2SAT 98
[2020-08-09 18:04] VITALS: BP 143/89; PULSE 86; RESP 16; TEMP 37; O2SAT 99; BMI 25.0
--- NOTE | 2020-08-09 18:17 | US_ITS ---
STUDY: FIRST TRIMESTER OBSTETRICAL ULTRASOUND REASON FOR EXAM: Female, 25 years old vaginal bleeding LMP: TECHNIQUE: Transvaginal TECHNICAL QUALITY: Adequate. PRIOR ULTRASOUND: None. FINDINGS: There is visualization of a single gestational sac in a normal intrauterine position. The mean sac diameter (MSD) measures 6.27 cm, indicating an estimated gestational age (EGA) of 12 weeks, 3 days. The gestational sac shape is within normal limits. There is a visualized yolk sac. The yolk sac measures . The placenta is visualized and posterior There is visualization of a live embryo. The crown-rump length (CRL) measures 6.57 cm, indicating an estimated gestational age (EGA) of 12 weeks, 6 days. There is demonstrated cardiac activity with a heart rate of 159 bpm. The estimated gestation age (EGA) by LMP is 11 weeks, 6 days. The estimated date of delivery (ONEYDA) by LMP is 02/22/2021. The estimated gestation age (EGA) by US is 12 weeks, 4 days. The estimated date of delivery (ONEYDA) by US is 02/17/2021. The uterus measures 11.1 x 10.5 x 6.6 cm. There is no demonstrated uterine fibroid. The cervix is closed. The right ovary measures 4.6 x 3.5 x 2 cm. There is a cyst measuring 2.8 x 2.4 x 1.9 cm likely corpus luteum.. There is no visualized right adnexal mass or complex lesion. The left ovary measures 2.5 x 1.8 x 1.2 cm. There is no left ovarian cyst. There is no visualized left adnexal mass or complex lesion. There is no fluid in the cul de sac. US/Transvaginal w/Preg US IMPRESSION: Viable intrauterine gestation approximately 12-13 weeks gestational age. Small cyst in the right ovary likely corpus luteum. No significant abnormalities Electronically Signed: Haris Nichols MD at 20:31 EDT , Service support ,
--- NOTE | 2020-08-09 18:19 | ED.DCSUM_ITS ---
History of Present Illness Chief Complaint: Vag Bld, Preg Informant: Patient Onset: Today Context: Sudden Onset Timing: Continuous Current Severity: Moderate Maximum Severity: Moderate Narrative: The patient is a 25-year-old female who is G1, P0 at approximately 12 weeks gestation that presents with sudden onset of vaginal bleeding. Patient was at work. She states that she suddenly noticed that she was having some bleeding. She states it was more than just normal spotting. She has not passed any clots. She denies abdominal pain. She denies any urinary symptoms. She states her blood type is a been negative. She has had no problems with this . She has had a confirmed intrauterine . She does follow with Dr. Elvis Pollock. Prior similar symptoms: No Recent Illness/Hospitalization: No Past Medical History - Allergies and Home Meds Allergies/Adverse Reactions: Allergies Sulfa (Sulfonamide Antibiotics) Allergy (Verified 12/31/19 08:08) Hives sulfamethoxazole [From Bactrim] Allergy (Verified 12/31/19 08:08) Hives trimethoprim [From Bactrim] Allergy (Verified 12/31/19 08:08) Hives Primary Care Physician: Latonya Rodriguez MD [STAFF PHYSICIAN] - As soon as possible Prior records reviewed: Yes Past Medical History: None Surgical History: noncontributory Smoking Status: Never smoker Review of Systems General: Denies: Chills, Fever, Sweats Eyes: Denies: Visual changes - bilaterally, Diplopia ENT: Denies: Rhinorrhea, Sore throat Cardiovascular: Denies: Chest pain, Palpitations Respiratory: Denies: Dyspnea, Cough, Dyspnea on exertion Gastrointestinal: Denies: Abdominal pain, Nausea, Vomiting, Diarrhea, Melena, Hematochezia Genitourinary: Denies: Dysuria, Hematuria, Frequency Musculoskeletal: Denies: Back pain, Extremity Pain Skin: Denies: Rash, Wounds Neurological: Denies: Headache, Weakness, Numbness Physical Exam Vital Signs/Narrative: Vital Signs Temp Pulse Resp BP Pulse Ox 08/09/20 18:04 98.6 F 86 16 143/89 H 99 08/09/20 18:03 98.6 F 92 16 143/89 H 98 Inital Vital Signs reviewed: Yes General: Well nourished, Well developed, No Acute Distress Head: Normocephalic, Atraumatic Eyes: Perrl, EOMI ENT: Moist mucous membranes, No rhinorrhea Neck: Supple, Nontender Cardiovascular: Regular rate, Regular rhythm, No murmurs Respiratory: No distress, CTA bilaterally, Chest nontender Abdomen: Soft, Nontender, Nondistended, Normal bowel sounds Back: Nontender, Normal Inspection Extremities: Nontender, No edema Skin: Normal color, No rash Neurological: Alert, Oriented x3, Cranial nerves II-XII grossly intact, Normal Strength, Normal Sensation Psychological: Normal affect, Normal Mood Diagnostic/Tx/Re-eval Abnormal Lab Results 08/09/20 08/09/20 18:38 18:38 Hgb 13.1 Hct 37.6 Blood Type AB NEGATIVE Clinical Impression(s) from Imaging Studies Obstetrics Ultrasound 08/09/20 18:17 IMPRESSION: Viable intrauterine gestation approximately 12-13 weeks gestational age. Small cyst in the right ovary likely corpus luteum. No significant abnormalities Electronically Signed: Haris Nichols MD at 20:31 EDT , Service support , - Medical Decision Making Patient is presents with vaginal bleeding. She has no pain. Vitals were unremarkable. I did immediate bedside ultrasound. It did show single live intrauterine with heart rates in the 150s. However, given her amount of bleeding, I did obtain formal ultrasound. This did confirm viable . Patient had no further bleeding while here. I did grief counselor her that anytime there is bleeding in early , there is risk for miscarriage. However, based on her results it does seem that if things have stabilized. I am going to have her follow-up with her [employer] SAL[employer]IST tomorrow. She will be written off work for the next 2 days. She was counseled on pelvic rest. She will be discharged home. Impression 1. Threatened miscarriage ED Disposition - Plan for ED Patient: Instructions: ED Possible Miscarriage ... Referrals: Latonya Rodriguez MD [STAFF PHYSICIAN] - As soon as possible
[2020-08-09] MEDS: 0.9% Normal Saline 1,000 ML 1000 ML IV (18:46)
[2020-08-09 19:04] LABS: Hematocrit 37.6 % (37-47); Hemoglobin 13.1 g/dL (12.0-15.0)
[2020-08-09 20:45] VITALS: PULSE 78; RESP 16
[2020-08-09 20:47] VITALS: PULSE 78; RESP 16; O2SAT 98
== END 2020-08-09 20:54 | disposition home or self-care (01) ==
LOC: ED 18:12
PROVIDERS: Emergency Provider Emergency Medicine; PCP Family Medicine
DX: O20.0 Threatened abortion (principal); Z3A.13 13 weeks gestation of pregnancy; N83.201 Unspecified ovarian cyst, right side; Z88.1 Allergy status to other antibiotic agents; Z88.2 Allergy status to sulfonamides; O34.81 Maternal care for other abnormalities of pelvic organs, first trimester
CPT/HCPCS: 76817; 85014; 85018; 86900; 86901; 96360; 99283; J7030

== ENCOUNTER → 2020-11-04 10:41 | Outpatient (CLI) | payer OTHER, SELFPAY ==
[2020-10-03 14:02] VITALS: BMI 25.0
[2020-11-04 11:30] LABS: Glucose Challenge Gest 1H 50g 120 mg/dL (70-140)
[2020-11-04 12:20] LABS: Hematocrit 37.2 % (37-47); Hemoglobin 12.2 g/dL (12.0-15.0); Mean Corp Hgb Conc 32.8 g/dL (32-36); Mean Corpuscular Hgb 31.5 pg (27.0-32.0); Mean Corpuscular Volume 96.1 fL (81-99); Mean Platelet Vol. 10.2 fl (6.2-12.0); Platelet Count 161 K/mm3 (150-450); RBC Distribution Width CV 12.9 % (11.6-14.6); RBC Distribution Width SD 45.3 fl (35.1-43.9); Red Blood Count 3.87 M/mm3 (4.2-5.4); White Blood Count 5.9 K/mm3 (4.4-11.0)
== END ==
PROVIDERS: PCP Family Medicine; Visit Provider Obstetrics & Gynecology
DX: Z34.82 Encounter for supervision of other normal pregnancy, second trimester (principal); N39.0 Urinary tract infection, site not specified
CPT/HCPCS: 36415; 82950; 85027; 87086; 87088

== ENCOUNTER → 2020-11-29 10:10 | Outpatient (CLI) | payer OTHER, SELFPAY ==
[2020-10-03 14:02] VITALS: BMI 25.0
== END ==
PROVIDERS: PCP Family Medicine; Visit Provider Obstetrics & Gynecology
DX: Z34.83 Encounter for supervision of other normal pregnancy, third trimester (principal)
CPT/HCPCS: 36415; 86850

== ENCOUNTER → 2021-01-13 12:00 | Outpatient (CLI) | payer OTHER, SELFPAY ==
[2021-01-13 12:44] LABS: Hematocrit 36.8 % (37-47); Hemoglobin 12.6 g/dL (12.0-15.0); Mean Corp Hgb Conc 34.2 g/dL (32-36); Mean Corpuscular Hgb 31.9 pg (27.0-32.0); Mean Corpuscular Volume 93.2 fL (81-99); Mean Platelet Vol. 10.8 fl (6.2-12.0); Platelet Count 178 K/mm3 (150-450); RBC Distribution Width CV 12.5 % (11.6-14.6); RBC Distribution Width SD 42.8 fl (35.1-43.9); Red Blood Count 3.95 M/mm3 (4.2-5.4); White Blood Count 5.7 K/mm3 (4.4-11.0)
[2021-01-13 12:55] LABS: ALB/GLOB Ratio 0.8 RATIO (0.9-2.4); AST(SGOT) 13 U/L (15-37); Alanine Aminotransfer ALT/SGPT 18 U/L (13-56); Albumin, Serum 2.9 g/dL (3.2-5.0); Alkaline Phosphatase 83 U/L (45-117); Anion Gap 9 (5-15); BUN 5 mg/dL (7-18); BUN/Creat Ratio 9.1 RATIO (10-20); Calcium,Total 8.6 mg/dL (8.5-10.1); Chloride 110 mmol/L (98-107); Creatinine, Serum 0.55 mg/dL (0.55-1.02); EST Glomerular Filtration Rate 142 mL/min (>60); Est Glom Filt Rate - Afr Amer 171 mL/min (>60); Globulin 3.8 g/dL (2.2-4.2); Glucose 117 mg/dL (74-106); LDH 168 U/L (84-246); Potassium 3.6 mmol/L (3.5-5.1); Protein, Total 6.7 g/dL (6.4-8.2); Sodium Level 139 mmol/L (136-145); Uric Acid 4.1 mg/dL (2.6-6.0)
== END ==
PROVIDERS: PCP Family Medicine; Visit Provider Obstetrics & Gynecology
DX: O16.3 Unspecified maternal hypertension, third trimester (principal); Z3A.00 Weeks of gestation of pregnancy not specified
CPT/HCPCS: 36415; 80053; 81050; 83615; 84156; 84550; 85027

== ENCOUNTER → 2021-01-16 07:42 | Outpatient (CLI) | payer OTHER, SELFPAY ==
[2021-01-14 21:23] LABS: 24 Hour Urine Protein 203.5 mg/24HR (<150 MG/24HR); 24HR. UA Prot. Total Volume 2750 mL; Urine Protein (24 Hour) 7.4 mg/dL (<11.9)
[2021-01-16 08:28] LABS: 24HR. Urine Creatinine 1.17 g/24 HR (0.70-1.90)
== END ==
PROVIDERS: PCP Family Medicine; Visit Provider Obstetrics & Gynecology
DX: O16.3 Unspecified maternal hypertension, third trimester (principal); Z3A.00 Weeks of gestation of pregnancy not specified
CPT/HCPCS: 81050; 82570; 84156

== ENCOUNTER 2021-01-20 19:30 | Outpatient (CLI) | payer OTHER, SELFPAY ==
[2021-01-20 20:02] VITALS: BMI 30.9
[2021-01-20 20:05] VITALS: PULSE 70; TEMP 37.1; O2SAT 97
[2021-01-20 20:06] VITALS: BP 127/76; PULSE 64
--- NOTE | 2021-01-20 21:35 | OB.TRI.HP_ITS ---
HPI - General HPI Narrative JHON BLANCO, is a 26 F who presents for blood pressure check and NST [facility] Medical History (Updated 01/21/21 @ 11:[address] Taz Abad MD) Bilateral headaches Family history of breast cyst Home Medications cholecalciferol (vitamin D3) 25 mcg (1,000 unit) capsule 1,000 unit PO DAILY 05/03/17 [History Last Taken 01/20/21] [id number] [] tab PO 01/20/21 [History Last Taken 01/20/21] Allergy/AdvReac Type Severity Reaction Status Date / Time Sulfa (Sulfonamide Allergy Hives Verified 01/20/21 20:04 Antibiotics) sulfamethoxazole Allergy Hives Verified 01/20/21 20:04 [From Bactrim] trimethoprim [From Bactrim] Allergy Hives Verified 01/20/21 20:04 Family History Other Cancer Diabetes Heart disease Hypercholesterolemia Hypertension Surgical History History of cholecystectomy (~02/2019) History of ERCP (~02/2019) History of tonsillectomy [place] teeth extracted Social History Smoking Status: Never smoker alcohol intake: current alcohol intake frequency: holidays/special occasions only substance use type: does not use what type of physical activity do you participate in: running, aerobics and weight training frequency: 3-4 times per week NST FHR Rate Baby A Baseline: 130 Variability:: Moderate Accelerations:: 15 x 15 Decelerations:: None NST Reactive:: Yes Uterine Activity:: Quiet Assessment & Plan (1) : PLAN: Patient arrives for blood pressure check, within normal limits and asymptomatic. Also Rester NST, reactive. All reassuring. Can follow-up at scheduled appointments
== END 2021-01-20 20:28 | disposition home or self-care (01) ==
LOC: WPOUT 19:47 → WP 19:48
PROVIDERS: PCP Internal Medicine; Visit Provider Obstetrics & Gynecology
DX: Z34.90 Encounter for supervision of normal pregnancy, unspecified, unspecified trimester (principal); Z3A.00 Weeks of gestation of pregnancy not specified
CPT/HCPCS: 59025; 59050; 99218; G0378

== ENCOUNTER 2021-01-24 13:23 | Outpatient (RCR) | payer OTHER, SELFPAY | END 2021-01-24 23:59 | LOC: EMPH 13:23 | PROVIDERS: PCP Internal Medicine; Referring Provider Family Medicine Geriatric Medicine; Visit Provider Family Medicine Geriatric Medicine | DX: Z03.818 Encounter for observation for suspected exposure to other biological agents ruled out (principal) | CPT/HCPCS: 87426 ==

== ENCOUNTER → 2021-01-27 11:56 | Outpatient (CLI) | payer OTHER, SELFPAY | PROVIDERS: PCP Internal Medicine; Visit Provider Obstetrics & Gynecology | DX: Z36.85 Encounter for antenatal screening for Streptococcus B (principal) | CPT/HCPCS: 87081 ==

== ENCOUNTER → 2021-02-03 12:02 | Outpatient (CLI) | payer OTHER, SELFPAY ==
[2021-02-03 12:24] LABS: Hematocrit 37.9 % (37-47); Hemoglobin 12.7 g/dL (12.0-15.0); Mean Corp Hgb Conc 33.5 g/dL (32-36); Mean Corpuscular Hgb 31.6 pg (27.0-32.0); Mean Corpuscular Volume 94.3 fL (81-99); Mean Platelet Vol. 10.9 fl (6.2-12.0); Platelet Count 187 K/mm3 (150-450); RBC Distribution Width CV 12.7 % (11.6-14.6); RBC Distribution Width SD 43.8 fl (35.1-43.9); Red Blood Count 4.02 M/mm3 (4.2-5.4); White Blood Count 5.3 K/mm3 (4.4-11.0)
[2021-02-03 12:33] LABS: Protein, Urine (Random) < 6.0 mg/dL (<11.9)
[2021-02-03 12:54] LABS: ALB/GLOB Ratio 0.7 RATIO (0.9-2.4); AST(SGOT) 13 U/L (15-37); Alanine Aminotransfer ALT/SGPT 20 U/L (13-56); Albumin, Serum 2.7 g/dL (3.2-5.0); Alkaline Phosphatase 99 U/L (45-117); Anion Gap 8 (5-15); BUN 7 mg/dL (7-18); BUN/Creat Ratio 13.3 RATIO (10-20); Calcium,Total 8.6 mg/dL (8.5-10.1); Chloride 105 mmol/L (98-107); Creatinine, Serum 0.53 mg/dL (0.55-1.02); EST Glomerular Filtration Rate 148 mL/min (>60); Est Glom Filt Rate - Afr Amer 179 mL/min (>60); Globulin 3.7 g/dL (2.2-4.2); Glucose 88 mg/dL (74-106); LDH 171 U/L (84-246); Potassium 3.8 mmol/L (3.5-5.1); Protein, Total 6.4 g/dL (6.4-8.2); Sodium Level 135 mmol/L (136-145); Uric Acid 4.6 mg/dL (2.6-6.0)
== END ==
PROVIDERS: PCP Internal Medicine; Visit Provider Obstetrics & Gynecology
DX: O16.3 Unspecified maternal hypertension, third trimester (principal); Z3A.00 Weeks of gestation of pregnancy not specified
CPT/HCPCS: 36415; 80053; 82570; 83615; 84156; 84550; 85027

== ENCOUNTER 2021-02-12 08:35 | Inpatient (IN) | payer OTHER, SELFPAY ==
[2021-02-12] VITALS (40 sets, daily range): BP systolic 114–161; BP diastolic 55–84; PULSE 58–93; TEMP 36.7–37.3; O2SAT 97–100; BMI 30.9
--- NOTE | 2021-02-12 08:45 | PCM.HP.BLA ---
History and Physical Date of Admission: 02/12/21 Chief complaint: Contractions History of present illness: 26-year-old at 39 weeks and 0 days with ONEYDA 02/19/2021 by LMP arrives with contractions. Denies headache, visual changes, chest pain, shortness of breath, nausea vomiting, right upper quadrant pain. Patient states good movement. Obstetrical history: G1: Current Past medical history: None Medications: vitamin Past surgical history: [place] teeth extraction, tonsils and adenoids, cholecystectomy Allergies: Bactrim, sulfa Social history: Denies smoking, alcohol use, drug use Family history: Denies history of DVT or PE Review of systems: Besides the above pertinent positives a full review of systems was performed and found to be negative Physical exam: Blood pressure 122/78 temp 98.4 General: Normal-appearing no acute distress HEENT: Normocephalic atraumatic no cervical lymphadenopathy Cardiac/respiratory: No use of accessory muscles, nonlabored breathing Abdomen: Soft, nontender, gravid Extremities: No peripheral edema normal peripheral pulses Psych: Normal affect normal demeanor nonpressured speech Labs: Pending Assessment and plan: 26-year-old G1, P0 at 39 weeks and 0 days arrives in labor Admit labor and delivery CEFM GBS negative Rh-: For testing/RhoGam Routine orders Anesthesia to see
[2021-02-12] MEDS: Lactated Ringers 1,000 ML 50 ML IV (08:46)
[2021-02-12 09:07] LABS: Absolute Lymphocyte Count 1.06 X10^3/uL (0.83-4.51); Absolute Neutrophil Count 6.8 X10^3/uL (2.0-7.7); Basophil# 0.01 X10^3/uL; Basophil% 0.1 % (0-1); Eosinophil# 0.02 X10^3/uL; Eosinophils% 0.2 % (0-5); Hematocrit 39.2 % (37-47); Lymphocyte # 1.06 X10^3/ul (0.83-4.51); Lymphocyte % 12.6 % (19-41); Mean Corp Hgb Conc 33.2 g/dL (32-36); Mean Corpuscular Hgb 31.4 pg (27.0-32.0); Mean Corpuscular Volume 94.7 fL (81-99); Monocyte# 0.48 X10^3/uL; Monocyte% 5.7 % (0-10); NRBC Flagged by Analyzer 0 % (0-5); Neutrophil # 6.83 X10^3/uL (2.7-7.7); Neutrophil % 80.9 % (47-70); Platelet Count 174 K/mm3 (150-450); RBC Distribution Width CV 12.7 % (11.6-14.6); RBC Distribution Width SD 43.8 fl (35.1-43.9); Red Blood Count 4.14 M/mm3 (4.2-5.4); White Blood Count 8.4 K/mm3 (4.4-11.0)
[2021-02-12 09:23] LABS: ALB/GLOB Ratio 0.7 RATIO (0.9-2.4); AST(SGOT) 15 U/L (15-37); Alanine Aminotransfer ALT/SGPT 23 U/L (13-56); Albumin, Serum 2.8 g/dL (3.2-5.0); Alkaline Phosphatase 109 U/L (45-117); Anion Gap 8 (5-15); BUN 8 mg/dL (7-18); Calcium,Total 8.6 mg/dL (8.5-10.1); Chloride 109 mmol/L (98-107); Creatinine, Serum 0.62 mg/dL (0.55-1.02); EST Glomerular Filtration Rate 123 mL/min (>60); Est Glom Filt Rate - Afr Amer 149 mL/min (>60); Glucose 101 mg/dL (74-106); LDH 181 U/L (84-246); Potassium 3.7 mmol/L (3.5-5.1); Protein, Total 6.8 g/dL (6.4-8.2); Sodium Level 138 mmol/L (136-145)
[2021-02-12] MEDS: Lactated Ringers 500 ML 999 ML IV (11:03)
[2021-02-12] MEDS: fentaNYL-bupivacaine (epidural) 100 ML BAG EPIDURAL ×3 (12:12→21:04)
--- NOTE | 2021-02-12 12:35 | PCM.PN.OB ---
Subjective Subjective Patient now comfortable with epidural Objective Data Objective Data Vital Signs: Vital Signs Temp Pulse BP Pulse Ox 98.2 F 79 134/71 H 99 02/12/21 12:10 02/12/21 12:31 02/12/21 12:31 02/12/21 12:31 Weight: 180 lb Body Mass Index (BMI) 30.9 Intake & Output: Intake and Output for Last 24 Hours 02/10/21 02/11/21 02/12/21 23:59 23:59 23:59 Intake Total 812.50 / 812.50 Output Total 200 / 200 Balance 612.50 / 612.50 Lab / Micro Data Result Diagrams: 02/12/21 08:45 02/12/21 08:45 Labs: Laboratory Results - last 24 hr 02/12/21 08:45: WBC 8.4, RBC 4.14 L, Hgb 13.0, Hct 39.2, MCV 94.7, MCH 31.4, MCHC 33.2, RDW Std Deviation 43.8, RDW Coeff of Andrade 12.7, Plt Count 174, MPV 11.0, Immature Gran % (Auto) 0.500, Neut % (Auto) 80.9 H, Lymph % (Auto) 12.6 L, [place] % (Auto) 5.7, Eos % (Auto) 0.2, Baso % (Auto) 0.1, Absolute Neuts (auto) 6.8, Absolute Lymphs (auto) 1.06, Nucleated RBC % 0 02/12/21 08:45: Blood Type AB NEGATIVE, Antibody Screen NEGATIVE 02/12/21 08:45: Sodium 138, Potassium 3.7, Chloride 109 H, Carbon Dioxide 21.0, Anion Gap 8, BUN 8, Creatinine 0.62, Estim Creat Clear Calc 117.70, Est GFR (MDRD) Af Amer 149, Est GFR (MDRD) Non-Af 123, BUN/Creatinine Ratio 13.0, Glucose 101, Calcium 8.6, Total Bilirubin 0.30, AST 15, ALT 23, Alkaline Phosphatase 109, Lactate Dehydrogenase 181, Total Protein 6.8, Albumin 2.8 L, Globulin 4.0, Albumin/Globulin Ratio 0.7 L Micro: Microbiology 02/12/21 08:45 Nasal Secretion SARS-CoV-2 Antigen (Rapid) - Final Physical Exam Const alert, oriented x3, no apparent distress, average body habitus, healthy appearing and well nourished HEENT normocephalic and moist oral mucous membranes Head and Scalp: atraumatic Face and Sinus: normal facial exam Eyes PERRL Neck full ROM Resp normal respiratory effort, no retractions and no use of accessory muscles Narrative: Cervical exams /-3. AROM thin meconium Extremity normal to inspection, full ROM and no clubbing, cyanosis or edema Skin no rashes or lesions noted Psych mental status grossly normal, affect normal, speech normal and activity/motor behavior normal Assessment & Plan (1) : PLAN: Patient seen and examined. Now comfortable with epidural. AROM thin meconium. Educated patient on meconium including risk for aspiration, will have computer systems integrator at delivery. Dispatcher [employer] to be notified. We will continue current management. Will augment with Pitocin if no change in next exam.
[2021-02-12] MEDS: Ondansetron 4 MG/2 ML Vial IV ×2 (13:46→20:49)
[2021-02-12] MEDS: Lactated Ringers 1,000 ML 200 ML IV ×2 (15:48→20:25)
[2021-02-12] MEDS: 0.9% Saline Lock 10 ML Syringe IV (20:49)
[2021-02-13] VITALS (17 sets, daily range): BP systolic 89–132; BP diastolic 50–81; PULSE 66–104; RESP 16–18; TEMP 35.8–37; O2SAT 97–99
[2021-02-13] MEDS: Oxytocin 30 units/NS 500 ml 30 UNITS/500 ML IV.SOLN 334 UNITS IV (00:57)
--- NOTE | 2021-02-13 01:40 | EX.PCM.OBRPT ---
Vaginal Delivery Findings Description of Procedure: Preop diagnosis: Term, maternal exhaustion Postop diagnosis: Term, maternal exhaustion, fourth degree midline perineal laceration Procedure: Forceps assisted vaginal delivery Surgeon: Taz Abad MD Anesthesia: Epidural EBL: 500 cc Complications: None Specimen: None Findings: Male in vertex position, ROP +2 station, Apgars 9/9. 4 degree midline perineal laceration noted Consent: Patient arrived in labor and progressed to complete dilation and pushed for greater than 3 hours, found to have maternal exhaustion. head was palpated to be in ROP position and +2 station. Pelvis felt adequate for vaginal delivery. Epidural anesthesia was adequate. Educated patient on continued maternal pushing, vacuum-assisted vaginal delivery, forceps assisted vaginal delivery and primary section risk benefits alternatives. Patient elected for forceps assisted vaginal delivery, again educated on the procedure and risks including but not limited to head injury and maternal tissue injury including the rectum. Patient stated understanding and wished to proceed. All questions were answered. Procedure: Patient with Nicole catheter. Ion forceps were opened and each blade was lubricated. Vaginal exam reconfirmed the ROP position and +2 station. Phantom application forceps was performed in front of the perineum. The the handle of the left branch was held in the left hand and the tip of the blade was gently introduced into the left side of the vagina with the right hand. In a similar fashion the right blade was placed into the right side of the vagina. Biparietal application was confirmed. The 2 branches were locked with ease. Gentle traction in the axis of the pelvis was applied in coordination with uterine contractions and maternal pushing effort. The handles of the forceps were gradually elevated when the occiput was delivered under the pubic symphysis. Forceps removed. Head and shoulders were delivered with ease. Cord was cut and clamped. Baby is handed off to patient. The placenta was delivered via cord traction and fundal massage. IV oxytocin was initiated in order to facilitate uterine contractions. The cervix and vaginal nance were thoroughly examined. Fourth degree midline perineal laceration was noted and right labial laceration was noted. Right labial laceration repaired with interrupted Vicryl suture. Good hemostasis was noted. Fourth degree midline perineal laceration confirmed with rectal exam was repaired in typical fashion. Rectal mucosa was repaired with 3-0 Vicryl interrupted sutures reapproximating the rectal mucosa. Anal sphincters were reapproximated end-to-end with 2-0 Vicryl interrupted sutures. Perineal muscles were reapproximated with 2-0 Vicryl interrupted sutures. Vaginal mucosa was reapproximated with 2-0 Vicryl running locking. Perineal subcutaneous 3-0 Vicryl were used to reapproximate the skin. Good hemostasis was noted. Repeat rectal exam was performed and no defects were noted, all well reapproximated. Good hemostasis was noted. Educated patient on laceration and home care. Infant was examined after delivery with no visible lacerations.
[2021-02-13] MEDS: Lactated Ringers 500 ML 999 ML IV (02:12)
[2021-02-13] MEDS: Acetaminophen 500 MG Tablet 1000 MG PO ×3 (03:39→19:52)
[2021-02-13] MEDS: Ibuprofen 600 MG Tablet PO ×3 (07:21→21:47)
[2021-02-13] MEDS: Dibucaine 30 GM Tube 1 APPLIC TOPICAL (08:36)
[2021-02-13] MEDS: Senna/Docusate Sodium 1 Tablet PO ×2 (08:37→21:47)
--- NOTE | 2021-02-13 15:25 | NURSING ---
Tylenol and motrin given today for c/o perineal pain. Area remains reddened and a little swollen but intact, pt rates her pain a 2 or 3 each time. She is using ice packs, dibucaine and tucks pads. Also offered dermoplast spray and provided with a sitz bath and instructed to use it 2-3 x a day until linsey area is healed. Pt also has a linsey bottle to use that has a long sprayer on it. Encouraged to keep the area as clean as possible to prevent infection.
--- NOTE | 2021-02-13 15:35 | NURSING ---
1500 chopra cath d/c'd, 2500 cc.
[2021-02-14 02:05] VITALS: BP 105/51; PULSE 70; RESP 16; TEMP 36.1; O2SAT 97
[2021-02-14 07:35] VITALS: BP 123/72; PULSE 80; RESP 16; TEMP 36.1
[2021-02-14] MEDS: Ibuprofen 600 MG Tablet PO (07:50)
--- NOTE | 2021-02-14 08:05 | PCM.PN.OB ---
Subjective Subjective No issues yesterday or overnight. Denies painfulness. She is only sore when ambulating. Denies heavy lochia. Passing flatus, no bowel movement yet. No voiding difficulty. Infant cluster-fed overnight. Objective Data Objective Data Vital Signs: Vital Signs Temp Pulse Resp BP Pulse Ox 97.0 F L 80 16 123/72 H 97 02/14/21 07:35 02/14/21 07:35 02/14/21 07:35 02/14/21 07:35 02/14/21 02:05 Oxygen Delivery Method Room Air Weight: 81.647 kg Body Mass Index (BMI) 30.9 Intake & Output: Intake and Output for Last 24 Hours 02/12/21 02/13/21 02/14/21 23:59 23:59 23:59 Intake Total 4423.33 / 4923.33 3500 / 3500 Output Total 800 / 1200 6900 / 6900 Balance 3623.33 / 3723.33 -3400 / -3400 Lab / Micro Data Result Diagrams: 02/12/21 08:45 02/12/21 08:45 Micro: Microbiology 02/12/21 08:45 Nasal Secretion SARS-CoV-2 Antigen (Rapid) - Final Physical Exam Const alert, oriented x3 and no apparent distress Resp normal respiratory effort and normal air movement Cardio regular rate, regular rhythm, S1 normal heart sound and S2 normal heart sound Narrative: perineum well approximated with no evidence of breakdown Uterus Palpation: uterus fundus firm and other OB fundus nontender Extremity no calf tenderness Extremity Narrative: trace LE edema Neuro oriented x3 Assessment & Plan (1) Forceps delivery: PLAN: PPD#1 s/p forceps assisted vaginal delivery with 4th degree perineal laceration AB neg, B neg Routine care May consider d/c home this afternoon if patient desires
--- NOTE | 2021-02-14 08:17 | PCM.DC ---
Discharge Instructions Diet Discharge Diet: No restrictions Activity May resume sexual activity in: 6-8 weeks Dressing / Incision Call your doctor if you observe: Fever of 101 or Higher, Using more than 1 pad per hour, Shortness of breath, Chest pain, Calf discomfort, Uncontrolled pain and - (Persistent or severe headache) Follow Up Care Please Follow Up With: Latonya Pollock MD When: 1 week follow up for perineal check 6 weeks for visit Test Results: Test results from this visit will be discussed in further detail at your follow-up appointment, if applicable. Discharge Plan Admission Admit Date/Time: 02/12/21 08:35 Primary Reason for Your Visit: Forceps Vaginal delivery Attending Provider: Taz Abad Primary Care Provider: Karin Quarles Instructions Patient Instructions: After a Vaginal Discharge Orders/Prescriptions Prescriptions: New sennosides-docusate sodium [Stool Softener-Stimulant Laxat] 8.6-50 mg Tablet 1 - 2 tab PO BID Qty: 60 RF: 0 ibuprofen 600 mg Tablet 600 mg PO Q8H PRN PRN (Reason: Pain Score 1-3) Qty: 30 RF: 0 Continued cholecalciferol (vitamin D3) 1,000 unit capsule 1,000 unit PO DAILY RF: 0 [id number]-FA 1 mg Tablet 1 tab PO DAILY RF: 0 Referrals / Follow Up: Karin Quarles MD [Primary Care Provider] - Disposition Disposition (needs filled in before D/C Order can be placed): Home, Self Care
[2021-02-14] MEDS: Senna/Docusate Sodium 1 Tablet PO (10:05)
== END 2021-02-14 12:35 | disposition home or self-care (01) | DRG 768 ==
LOC: WPOUT 08:38 → WP 08:38
PROVIDERS: Admitting Provider Obstetrics & Gynecology; PCP Internal Medicine; Visit Provider Obstetrics & Gynecology
DX: O75.81 Maternal exhaustion complicating labor and delivery (principal); Z37.0 Single live birth; O70.3 Fourth degree perineal laceration during delivery; Z3A.39 39 weeks gestation of pregnancy; O77.0 Labor and delivery complicated by meconium in amniotic fluid
CPT/HCPCS: 59025; 59050; 80053; 83615; 85025; 86850; 86900; 86901; 87426; 99218; J7120; A4216; G0378; J2405

== ENCOUNTER → 2021-04-04 14:43 | Outpatient (CLI) | payer OTHER, SELFPAY ==
[2021-04-07 00:07] LABS: Chlamydia By Nucleic Acid AMP Negative (Negative)
[2021-04-07 13:39] LABS: Gonococcus By Nucleic Acid AMP Negative (Negative)
== END ==
PROVIDERS: PCP Internal Medicine; Visit Provider Obstetrics & Gynecology
DX: Z11.3 Encounter for screening for infections with a predominantly sexual mode of transmission (principal)
CPT/HCPCS: 87491; 87591

== ENCOUNTER 2021-07-20 07:46 | Outpatient (CLI) | payer OTHER, SELFPAY ==
[2021-07-20 09:08] LABS: Absolute Lymphocyte Count 1.91 X10^3/uL (0.83-4.51); Absolute Neutrophil Count 3.7 X10^3/uL (2.0-7.7); Basophil# 0.02 X10^3/uL; Basophil% 0.3 % (0-1); Eosinophil# 0.24 X10^3/uL; Eosinophils% 3.8 % (0-5); Hematocrit 40.7 % (37-47); Hemoglobin 13.2 g/dL (12.0-15.0); Lymphocyte # 1.91 X10^3/ul (0.83-4.51); Lymphocyte % 30.5 % (19-41); Mean Corp Hgb Conc 32.4 g/dL (32-36); Mean Corpuscular Hgb 28.9 pg (27.0-32.0); Mean Corpuscular Volume 89.3 fL (81-99); Monocyte# 0.38 X10^3/uL; Monocyte% 6.1 % (0-10); NRBC Flagged by Analyzer 0 % (0-5); Neutrophil # 3.69 X10^3/uL (2.7-7.7); Neutrophil % 58.8 % (47-70); Platelet Count 223 K/mm3 (150-450); RBC Distribution Width CV 13.2 % (11.6-14.6); RBC Distribution Width SD 43.2 fl (35.1-43.9); Red Blood Count 4.56 M/mm3 (4.2-5.4); White Blood Count 6.3 K/mm3 (4.4-11.0)
[2021-07-20 09:36] LABS: Cholesterol 134 mg/dL (200); High Density Lipoprotein 49 mg/dL; Triglycerides 44 mg/dL; Very Low Density Lipoprotein 9 mg/dL (5-40)
[2021-07-20 09:40] LABS: ALB/GLOB Ratio 1.2 RATIO (0.9-2.4); AST(SGOT) 11 U/L (15-37); Alanine Aminotransfer ALT/SGPT 18 U/L (13-56); Alkaline Phosphatase 71 U/L (45-117); Anion Gap 3 (5-15); BUN 13 mg/dL (7-18); BUN/Creat Ratio 17.4 RATIO (10-20); Calcium,Total 8.9 mg/dL (8.5-10.1); Chloride 109 mmol/L (98-107); Creatinine, Serum 0.75 mg/dL (0.55-1.02); EST Glomerular Filtration Rate 98 mL/min (>60); Est Glom Filt Rate - Afr Amer 119 mL/min (>60); Globulin 3.4 g/dL (2.2-4.2); Glucose 87 mg/dL (74-106); Protein, Total 7.4 g/dL (6.4-8.2); Sodium Level 139 mmol/L (136-145); Thyroid Stim Hormone (TSH) 2.21 uIU/mL (0.358-3.74)
[2021-07-20 11:22] LABS: Vitamin B12 491 pg/mL (211-911); Vitamin D,25 Hydroxy 30.4 ng/mL
== END 2021-07-20 23:59 | disposition home or self-care (01) ==
LOC: LAB 07:49
PROVIDERS: Nurse Practitioner Family; PCP Internal Medicine; Referring Provider Internal Medicine; Visit Provider Internal Medicine
DX: F41.9 Anxiety disorder, unspecified (principal); F32.A Depression, unspecified; E56.9 Vitamin deficiency, unspecified
CPT/HCPCS: 36415; 80053; 80061; 82306; 82607; 84443; 85025

== ENCOUNTER → 2022-03-21 | Outpatient (CLI) | payer OTHER, SELFPAY ==
[2022-03-21 11:05] LABS: Bacteria 0 SEEN /hpf (None Seen); Mucous, Urine 0 SEEN /hpf (<or=2+); Red Blood Cells-Urine 0 SEEN /hpf (0-5); White Blood Cells 0 SEEN /hpf (0-5)
[2022-03-21 12:25] LABS: Color, Urine Straw (Yellow); Glucose, Dipstick Normal (Normal); Ketone-Dipstick Negative (Negative); Leukocyte Esterase-Dipstick Negative /ul (Negative); Nitrite-Dipstick Negative (Negative); Occult Blood-Urine Negative /ul (Negative); Protein-Dipstick Negative (Negative); Specific Gravity, Urine 1.005 (1.002-1.030); Urine Bilirubin Dipstick Negative (Negative); Urine Clarity Clear (Clear); Urine Urobilinogen Normal (Normal); Urine pH 6.5 (5.0 - 8.0)
[2022-03-21 12:36] LABS: Internal QC Validated? YES +Cl - CLEAR BKGD; Pregnancy, Urine Negative Negative; Squamous Epithelial Cells - UA 0-5 SEEN /hpf (5-10)
== END | disposition home or self-care (01) ==
LOC: BIMLAB 11:04
PROVIDERS: PCP Internal Medicine; Referring Provider Internal Medicine; Visit Provider Internal Medicine
DX: R10.2 Pelvic and perineal pain (principal)
CPT/HCPCS: 81001; 81025; 87086; 87088

== ENCOUNTER → 2022-03-27 | Outpatient (CLI) | payer OTHER, SELFPAY ==
[2022-03-27 20:38] LABS: Probe Check PASS; Sample Adequacy Control PASS; Specimen Processing Control PASS; Trichomonas Vag DNA by PCR Negative (Negative)
== END | disposition home or self-care (01) ==
PROVIDERS: PCP Internal Medicine; Referring Provider Internal Medicine; Visit Provider Internal Medicine
DX: R10.2 Pelvic and perineal pain (principal)
CPT/HCPCS: 87661

== ENCOUNTER → 2022-09-05 | Outpatient (CLI) | payer OTHER, SELFPAY ==
[2022-09-12 21:15] LABS: HPV Reflexed? NOT INDICATED
== END | disposition home or self-care (01) ==
LOC: LABSPEC 16:06
PROVIDERS: PCP Internal Medicine; Referring Provider Nurse Practitioner Women's Health; Visit Provider Nurse Practitioner Women's Health
DX: Z12.4 Encounter for screening for malignant neoplasm of cervix (principal)
CPT/HCPCS: 88175; G0145

== ENCOUNTER → 2022-10-29 | Outpatient (CLI) | payer OTHER, SELFPAY ==
--- NOTE | 2022-10-29 07:25 | US_ITS ---
STUDY: SUPERFICIAL ULTRASOUND - LEFT AXILLARY LUMP. REASON FOR EXAM: Female, 27 years old. Left axilla lump TECHNIQUE: A superficial ultrasound was performed with real-time and static bobo-scale imaging. COMPARISON: None. FINDINGS: The left axillary region was examined with ultrasound. 2 benign-appearing lymph nodes are seen. The larger lymph node corresponding to the palpable lump measures 1.8 cm x 1.4 cm x 0.8 cm. US/Ext Non Vasc Limited/Soft Tiss IMPRESSION: The palpable lump corresponds to a 1.8 cm x 1.4 cm x 0.8 cm benign-appearing lymph node. Electronically Signed: Yasir Luz MD at 14:29 EDT ,
== END | disposition home or self-care (01) ==
LOC: US 07:24
PROVIDERS: PCP Internal Medicine; Referring Provider Advanced Practice Midwife; Visit Provider Advanced Practice Midwife
DX: R22.30 Localized swelling, mass and lump, unspecified upper limb (principal)
CPT/HCPCS: 76882

== ENCOUNTER → 2022-12-21 | Outpatient (CLI) | payer OTHER, SELFPAY ==
--- NOTE | 2022-12-21 09:01 | BI_ITS ---
MAMMOGRAPHY - BILATERAL DIAGNOSTIC REASON FOR EXAM: Female, 27 years old. One-week history of palpable lump in the upper lateral aspect of the left breast. PERTINENT HISTORY: Non-contributory. TECHNIQUE: Digital bilateral breast saran (3D mammographic acquisition) in the CC and MLO projections. 2-D mediolateral oblique (MLO) and craniocaudad (CC) views of both breasts were obtained. CAD: Full Field Digital Mammography with Computer Added Detection was performed. COMPARISON: None. Baseline examination. FINDINGS: Breast Composition: The breasts are extremely dense, which lowers the sensitivity of mammography. The palpable lump corresponds to a well-defined 1.6 cm x 1.7 cm nodule in the upper lateral aspect of the left breast. Correlation with ultrasound is recommended. No other significant abnormalities are identified. BI/DIAG MAMM W/CAD, BILAT IMPRESSION: 1.6 cm x 1.7 cm well-defined nodule in the upper lateral aspect of the left breast. Correlation with ultrasound is recommended. ASSESSMENT CATEGORY: BIRADS Category 0: Incomplete. Need additional imaging evaluation. A letter regarding these results will be sent to the patient by the facility within 30 days. Approximately 10% of breast cancers are not detected by mammography. A normal mammogram should not delay biopsy of a clinically suspicious abnormality. Electronically Signed: Yasir Luz MD at 10:02 EDT ,
--- NOTE | 2022-12-21 09:01 | US_ITS ---
STUDY: ULTRASOUND BREAST - LEFT REASON FOR EXAM: Female, 27 years old. Palpable lump left breast. TECHNIQUE: Axial and longitudinal images of the LEFT breast were performed with a high resolution ultrasound transducer. # OF IMAGES: 22 COMPARISON: Comparison is made with prior mammogram done earlier in the day. FINDINGS: LEFT Breast: The upper lateral aspect of the left breast was examined with ultrasound. The palpable lump corresponds to 1.7 cm x 1.9 cm x 1.2 cm partially septated cyst at the 1:00 position of the breast at 3 cm from the nipple. US/Breast Limited Unilateral IMPRESSION: 1.7 cm x 1.9 cm x 1.2 cm partially septated cyst at the 1:00 position of the breast 3 cm from the nipple. ASSESSMENT CATEGORY: BIRADS Category 2: Benign. A letter regarding these results will be sent to the patient by the facility within 30 days. Electronically Signed: Yasir Luz MD at 10:40 EDT ,
== END | disposition home or self-care (01) ==
LOC: OPBI 08:59
PROVIDERS: PCP Internal Medicine; Referring Provider Nurse Practitioner Women's Health; Visit Provider Nurse Practitioner Women's Health
DX: N63.25 Unspecified lump in the left breast, overlapping quadrants (principal)
CPT/HCPCS: 76642; 77066

== ENCOUNTER → 2024-02-06 | Outpatient (CLI) | payer OTHER, SELFPAY ==
--- NOTE | 2024-02-06 16:25 | RAD_ITS ---
INDICATION: pain EXAMINATION/TECHNIQUE: X-RAY - RIGHT XR Shoulder 4 VIEWS COMPARISON: FINDINGS: SOFT TISSUES: No soft tissue swelling or gas. No radiopaque foreign body. BONES/JOINTS: No acute fracture or subluxation.. Normal alignment. Preservation of the joint space.. No sclerotic or destructive changes observed. RAD/Shoulder min 2 Views IMPRESSION: Negative. Electronically Signed: Danis Valera DO at 17:06 EDT ,
== END | disposition home or self-care (01) ==
LOC: RAD 16:24
PROVIDERS: PCP Internal Medicine; Visit Provider Orthopaedic Surgery Sports Medicine
DX: M25.511 Pain in right shoulder (principal)
CPT/HCPCS: 73030

== ENCOUNTER 2024-03-31 07:31 | Outpatient (CLI) | payer OTHER, SELFPAY ==
--- NOTE | 2024-03-31 07:33 | CT_ITS ---
STUDY: CT CHEST WITHOUT CONTRAST REASON FOR EXAM: Female, 29 years old. Family history of ischemic heart disease and other diseases of th -- limited chest over read only RADIATION DOSAGE (If Supplied By Facility): CTDIvol = ( 12.19 ) mGy, DLP = ( 219.42 ) mGycm TECHNIQUE: Transaxial imaging was performed without the administration of intravenous contrast material. Individualized dose optimization techniques were used for this CT. COMPARISON: No relevant priors. FINDINGS: CHEST The lungs are normal. There is no demonstrated pleural abnormality. Normal heart and pericardium. No coronary artery calcification is seen. Normal mediastinum. Normal hilar regions. Normal unenhanced pulmonary arteries. Normal aorta arch and descending thoracic aorta. Normal osseous structures. There is no demonstrated abnormality of the visualized upper abdomen. CT/Limited Chest CT Cardiac Only IMPRESSION: Normal unenhanced CT chest examination. Electronically Signed: Yasir Luz MD at 10:00 EST ,
--- NOTE | 2024-03-31 11:49 | CA.SCORE ---
Calcium Scoring Date of Study:: 03/31/24 Indications Indications: Family history Coronary Calcium Scoring: High-resolution Computed Tomographic imaging of the chest was performed on [03/31/2024], with particular attention paid to the coronary arteries. Images from the examination were analyzed for the presence and extent of coronary artery calcification , using coronary calcium quantification software. The patient tolerated the procedure well and there were no complications. The results of the coronary calcification analysis are provided below. Findings Coronary Artery Left Main (LM): 0 Left Anterior Descending (LAD): 0 Left Circumflex (LCX): 0 Right Coronary Artery (RCA): 0 Total Agatston Score: 0 Percentile Rankin Calcium Scoring Interpretation: Different methods to categorize the overall amount of coronary plaque. Overall amount CAC SIS Visual of coronary plaque P1 Mild -100 <2 1-2 vessels with mild amount of plaque P2 Moderate 101-300 3-4 1-2 vessels with moderate amount, 3 vessels with mild amount of plaque P3 Severe 301-999 5-7 3 vessels with moderate amount, 1 vessel with severe amount of plaque P4 Extensive >1000 >8 2-3 vessels with severe amount of plaque Conclusion: No atherosclerotic plaquing noted.
== END 2024-03-31 23:59 | disposition home or self-care (01) ==
LOC: CT 07:33
PROVIDERS: PCP Internal Medicine; Referring Provider Internal Medicine; Visit Provider Internal Medicine
DX: Z82.49 Family history of ischemic heart disease and other diseases of the circulatory system (principal)
CPT/HCPCS: 75571; 76380

== ENCOUNTER → 2024-09-21 | Outpatient (CLI) | payer OTHER, SELFPAY ==
--- NOTE | 2024-09-21 15:42 | US_ITS ---
PROCEDURE: PELVIC W/ TRANSVAGINAL (USPELTVAG), 09/21/2024 REASON FOR EXAM: LOST IUD STRING TECHNIQUE: Grayscale and color doppler transabdominal and transvaginal pelvic ultrasound was performed. COMPARISON: None FINDINGS: Uterus: 9.0 x 5.6 x 3.9 cm, Anteflexed. Unremarkable echotexture. Endometrium: 3 mm, unremarkable. IUD in the expected location. Cervix: Unremarkable. Right ovary: 3.0 x 1.4 x 1.7 cm. Unremarkable. Left ovary: 2.5 x 2.4 x 1.6 cm. Ill-defined solid-appearing isoechoic LEFT ovarian lesion with moderate vascularity, color score 3, measuring 2.1 x 1.9 x 1.9 cm. Free fluid: None visualized. Other: Estimated bladder volume 26 mL.. Prominent LEFT parauterine collaterals. US/Pelvic w/ Transvaginal IMPRESSION: 1. IUD in the expected location. 2. 2.1 cm solid appearing LEFT ovarian lesion. Although this could conceivably reflect a collapsed corpus luteal cyst this is not definitive and the finding is technically O-RADS 4. Recommend a follow-up pelvic ultrasound in 4-6 weeks to evaluate for persistence. 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 3. Additional description as above. Reading Location: [id number]
== END | disposition home or self-care (01) ==
LOC: US 15:42
PROVIDERS: PCP Internal Medicine; Referring Provider Obstetrics & Gynecology; Visit Provider Obstetrics & Gynecology
DX: T83.32XA Displacement of intrauterine contraceptive device, initial encounter (principal)
CPT/HCPCS: 76830; 76856

== ENCOUNTER → 2024-10-27 | Outpatient (CLI) | payer OTHER, SELFPAY ==
--- NOTE | 2024-10-27 09:41 | US_ITS ---
PROCEDURE: TRANSVAGINAL NON- 10/27/2024 REASON FOR EXAM: REPEAT US FU ON LESION TECHNIQUE: Transvaginal pelvic ultrasound. Color and spectral doppler analysis of the ovaries. COMPARISON: Pelvic ultrasound 09/21/2024. FINDINGS: Measurements: Uterus: 8.8 x 4.0 x 4.6 cm for volume of 84.7 mL. Endometrial Thickness: 0.4 cm Right Ovary: 2.9 x 1.8 x 2.7 cm for volume of 7.7 mL Left Ovary: 2.7 x 1.3 x 2.1 cm for volume of 3.9 mL. Uterus: Anteverted. Normal contour and myometrial echotexture. Intrauterine device appears appropriately positioned with tip near the fundal end of the endometrial canal. Endometrium: Normal echotexture. Right ovary: Normal size and echotexture. Dominant follicle measuring 2.2 cm. Left ovary: Normal size and echotexture. Other adnexal findings: None. Cul-de-sac: No free intraperitoneal fluid identified. Color Doppler: Normal color flow doppler signal at both ovaries. US/Transvaginal Non- IMPRESSION: Unremarkable pelvic ultrasound. The solid-appearing left ovarian lesion seen o n ultrasound dated 09/21/2024 was not identified on this exam, and may have been artifactual. Reading Location: [facility]
--- OUTSIDE RECORDS SUMMARY | 2024-10-27 19:29 | XMS RPT_ITS | CCD ---
Author Organization [facility] Care Team Providers Care Natural Sciences Department Chair Name Role Phone JOSE BENITEZ Unavailable Unavailable CHILO, HALEY Unavailable Unavailable JOSE BENITEZ Unavailable Unavailable CHILO, HALEY Unavailable Unavailable Dr. Karin Quarles Primary Care Provider 1(33 0) Dr. Karin Quarles Referring Provider 1(330)2 Dr. Mindi Cameron Attending Provider [phone]) 25 Dr. Karin Quarles Attending Provider 1(330)2 Dr. Karin Quarles Primary Care Provider 1(33 0) Dr. Karin Quarles Referring Provider 1(330)2 Dr. Mindi Cameron Attending Provider 1(330) 25 Dr. Karin Quarles Attending Provider 1(330)2 Dr. Karin Quarles Primary Care Provider 1(33 0) Dr. Karin Quarles Referring Provider 1(330)2 Dr. Mindi Cameron Attending Provider 1(330) PEDRO Hernadez NP Attending Provider 1(330 ) Dr. Karin Quarles Primary Care Provider 1(33 0) Dr. Karin Quarles Referring Provider 1(330)2 MULU Padgett Attending Provider 1(330) Dr. Mindi Cameron Attending Provider 1(330)- Kelvin Bradley Attending Unavailable Marques Clark Attending Unavailable Oleghe, Efewongbe Referring Unavailable Oleghe, Efewongbe Primary Care Unavailable Assessment, Health Risk Attending Unavaila ble Oleghe, Efewongbe Primary Care Unavailable Laura Almonte Attending Unavailabl e Vande VelLaura peacock Referring Unavailabl e Oleghe, Efewongbe Primary Care Unavailable Laura Almonte Attending Unavailabl e Vande Velmadonna, Laura Referring Unavailabl e Oleghe, Efewongbe Primary Care Unavailable Yaron Red Attending Unavailable Oleghe, Efewongbe Primary Care Unavailable Oleghe, Efewongbe Attending Unavailable Oleghe, Efewongbe Referring Unavailable Oleghe, Efewongbe Primary Care Unavailable Tri Barrera Attending Unavailable Oleghe, Efewongbe Primary Care Unavailable Silvio Drew Attending Unavailable Oleghe, Efewongbe Referring Unavailable Oleghe, Efewongbe Primary Care Unavailable Oleghe, Efewongbe Consulting Unavailable Laura Almonte Attending Unavailabl e Oleghe, Efewongbe Referring Unavailable Oleghe, Efewongbe Primary Care Unavailable Kelvin Bradley Attending Unavailable Yaron Red Attending Unavailable Oleghe, Efewongbe Primary Care Unavailable Oleghe, Efewongbe Referring Unavailable Oleghe, Efewongbe Attending Unavailable Oleghe, Efewongbe Primary Care Unavailable Oleghe, Efewongbe Referring Unavailable Allergies Allergy Classification Reported Allergen(s) Allergy Type Date of Onset Reaction(s) Facility (4 sources) Sulfamethoxazole Drug Allergy 2 [facility] (4 sources) Sulfonamides (Antibiotic) Allergy to substance 2 [facility] (4 sources) Trimethoprim Drug Allergy 2 [facility] (1 source) Sulfamethoxazole Drug Allergy 5 [facility] (1 source) Sulfonamides (Antibiotic) Drug allergy (disorder) 5 [facility] (1 source) Trimethoprim Drug Allergy 5 [facility] (1 source) bee venom protein (honey bee) Drug allergy (disorder) 5 [facility] Medications Current Medications Medication Drug Class(es) Dates Sig (Normalized) Sig (Original) sertraline 50 mg oral tablet (17 sources) Serotonin Reuptake Inhibitor Start: 06-27-2021 End: 10-24-2022 take 50 mg by mouth once daily Sertraline Active 50 MG PO daily October 24, 2022 1:13pm Completed/Discontinued Medications Medication Drug Class(es) Dates Sig (Normalized) Sig (Original) acetaminophen 325 mg / HYDROcodone bitartrate 5 mg oral tablet (4 sources) Opioid Agonist Start: 02-20-2019 End: 03-04-2019 take 1 tablet by mouth every eight hours as needed Hydrocodone-Acetami nophen Discontinued 1 TABLET PO EVERY 8 HOURS NEEDED 08 10February 20, 2019 March 04, 2019 12:08am bacitracin zinc 0.5 unt/mg topical ointment (4 sources) Start: 05-25-2016 End: 05-03-2017 Bacitracin Zinc Discontinued 1 APPLIC TOPICAL 4 TIMES DAILY May 25, 2016 1:00am May 03, 2017 10:12am cephalexin 500 mg oral capsule (4 sources) Cephalosporin Antibacterial Start: 11-26-2017 End: 12-06-2017 take 1 capsule by mouth every twelve hours Cephalexin (Keflex) 500 mg capsule Discontinued 500 MG PO Q12H 20 November 26, 2017 12:00am December 06, 2017 12:09am cholecalciferol 0.025 mg oral capsule (4 sources) Vitamin D Start: 05-03-2017 End: 09-05-2022 take 1000 [IU] by mouth once daily Cholecalciferol (Vitamin D3) Discontinued 1000 UNIT PO DAILY May 03, 2017 1:00am September 05, 2022 2:40pm docusate sodium 50 mg / sennosides, nursing home 8.6 mg oral tablet (4 sources) Start: 02-14-2021 End: 09-05-2022 take 1 tablet by mouth twice daily Sennosides-Docusate Sodium (Stool Softener-Stimulant Laxat) 8.6-50 mg Tablet Discontinued 1 - 2 TABLET PO TWICE A DAY February 14, 2021 12:00am September 05, 2022 2:40pm ibuprofen 600 mg oral tablet (4 sources) Nonsteroidal Anti-inflammatory Drug Start: 02-14-2021 End: 09-05-2022 take 600 mg by mouth every eight hours as needed Ibuprofen Discontinued 600 MG PO EVERY 8 HOURS NEEDED February 14, 2021 8:20am September 05, 2022 2:40pm ketorolac tromethamine 10 mg oral tablet (4 sources) Nonsteroidal Anti-inflammatory Drug, Cyclooxygenase Inhibitor Start: 02-24-2019 End: 03-04-2019 take 10 mg by mouth every eight hours Ketorolac Discontinued 10 MG PO Q8H 15 5 February 24, 2019 12:00am March 04, 2019 12:09am ondansetron 4 mg oral tablet (4 sources) Serotonin-3 Receptor Antagonist Start: 02-24-2019 End: 03-04-2019 take 4 mg by mouth every eight hours Ondansetron Hcl Discontinued 4 MG PO Q8H 6 2 February 24, 2019 8:25am March 04, 2019 12:08am Luhjdydz-Vun-Rl-Fa (4 sources) Start: 01-20-2021 End: 09-05-2022 take 1 tablet by mouth once daily Hoaiwujl-Ddc-Ci-Fa Discontinued 1 TABLET PO DAILY January 20, 2021 12:00am September 05, 2022 2:40pm Start: 01-20-2021 take 1 tablet by narcisa th once daily Hucskksm-Awn-Zk-Fa Active 1 TABLET PO DAILY January 19, 2021 11:00pm Start: 01-20-2021 take 1 tablet by narcisa th once daily Tarcwaam-Uts-Pw-Fa Active 1 TABLET PO DAILY January 20, 2021 12:00am Problems Active Problems Problem Classification Problem Date Documented Date Episodic/Chronic Abdominal pain (8 sources) Right upper quadrant pain; Translations: [Right upper quadrant pain] Episodic Administrative/social admission (4 sources) Patient encounter status; Translations: [Encounter for other administrative examinations] Episodic Anxiety disorders (4 sources) Mixed anxiety and depressive disorder; Translations: [Anxiety disorder, unspecified] 07-25-2021 Chronic Complication of device; implant or graft (1 source) Displacement of intrauterine contraceptive device, initial encounter; Translations: [Displacement of intrauterine contraceptive device, initial encounter] Onset: 09-24-2024 Episodic Complications of surgical procedures or medical care (4 sources) Leakage of bile; Translations: [Other postprocedural complications and disorders of digestive system] 09-05-2022 Episodic Disorders of lipid metabolism (4 sources) Hyperlipidemia; Translations: [Hyperlipidemia, unspecified] 09-05-2022 Chronic Genitourinary symptoms and ill-defined conditions (8 sources) Dysuria; Translations: [Dysuria] Episodic Noninfectious gastroenteritis (4 sources) Gastroenteritis; Translations: [Noninfective gastroenteritis and colitis, unspecified] 02-14-2021 Episodic Nonmalignant breast conditions (2 sources) Breast lump; Translations: [Unspecified lump in the left breast, unspecified quadrant] 12-18-2022 Episodic Nutritional deficiencies (2 sources) Vitamin deficiency; Translations: [Vitamin deficiency, unspecified] Episodic Other bone disease and musculoskeletal deformities (20 sources) Segmental and somatic dysfunction; Translations: [Segmental and somatic dysfunction of cervical region] 10-04-2020 Episodic Other bone disease and musculoskeletal deformities (3 sources) Segmental and somatic dysfunction of cervical region; Translations: [Nonallopathic lesions, cervical region] Episodic Other bone disease and musculoskeletal deformities (5 sources) Segmental and somatic dysfunction of lumbar region; Translations: [Nonallopathic lesions, lumbar region] Episodic Other bone disease and musculoskeletal deformities (4 sources) Segmental and somatic dysfunction of pelvic region; Translations: [Nonallopathic lesions, pelvic region] Episodic Other bone disease and musculoskeletal deformities (3 sources) Segmental and somatic dysfunction of thoracic region; Translations: [Nonallopathic lesions, thoracic region] Episodic Other complications of ; puerperium affecting management of mother (4 sources) Forceps delivery - delivered; Translations: [Complication of labor and delivery, unspecified] 09-05-2022 Episodic Other female genital disorders (1 source) Noninflammatory disorder of ovary, fallopian tube and broad ligament, unspecified; Translations: [Noninflammatory disorder of ovary, fallopian tube and broad ligament, unspecified] Onset: 10-22-2024 Episodic Other and delivery including normal (4 sources) ; Translations: [Encounter for supervision of normal , unspecified, unspecified trimester] 02-14-2021 Episodic Other skin disorders (1 source) Mass of axilla; Translations: [Localized swelling, mass and lump, unspecified upper limb] 10-26-2022 Episodic Other skin disorders (1 source) Localized swelling, mass and lump, unspecified upper limb; Translations: [Localized superficial swelling, mass, or lump] 10-26-2022 Episodic Prolapse of female genital organs (4 sources) Disorder of rectum; Translations: [Rectocele] 09-05-2022 Chronic Residual codes; unclassified (4 sources) FH: Hypercholesterolemia; Translations: [Family history of familial hypercholesterolemia] 01-24-2021 Episodic Skin and subcutaneous tissue infections (4 sources) Staphylococcal infection of skin; Translations: [Local infection of the skin and subcutaneous tissue, unspecified] 02-14-2021 Episodic Spondylosis; intervertebral disc disorders; other back problems (4 sources) Lumbar radiculopathy; Translations: [Radiculopathy, lumbar region] 07-13-2019 Episodic Sprains and strains (2 sources) Lower back injury; Translations: [Strain of muscle, fascia and tendon of lower back, initial encounter] Episodic Past or Other Problems Problem Classification Problem Date Documented Da te Episodic/Chronic Immunizations and screening for infectious disease (1 source) Encounter for immunization; Translations: [Encounter for immunization] Onset: 03-18-2024 Episodic Other non-traumatic joint disorders (1 source) Pain in right shoulder; Translations: [Pain in right shoulder] Onset: 02-26-2024 Episodic Poisoning by nonmedicinal substances (1 source) Toxic effect of venom of bees, accidental (unintentional), initial encounter; Translations: [Toxic effect of venom of bees, accidental (unintentional), initial encounter] Onset: 01-31-2024 Episodic Residual codes; unclassified (2 sources) Family history of ischemic heart disease and other diseases of the circulatory system; Translations: [Family history of ischemic heart disease and other diseases of the circulatory system] Onset: 04-22-2024 Episodic Results Test Name Value Interpretation Reference Range Facility Pelvic w/ Transvaginalon Pelvic w/ Transvaginal [facility] Imaging Services [address] [place] [address] [id number] Pelvic w/ Transvaginal MR#: [id number] Acct: [id number] Name: MICAELA BLANCO Rep #: [id number] : 1995 F 29 From: Merrill Crystal MD PCP: Dr. Karin Quarles MD Status: DEP CLI Study: Pelvic w/ Transvaginal Date of Exam: 09/21/24 Exam# [id number] Ordering Dr: Laura Almonte DO PROCEDURE: PELVIC W/ TRANSVAGINAL (USPELTVAG), 09/21/2024 REASON FOR EXAM: LOST IUD STRING TECHNIQUE: Grayscale and color doppler transabdominal and transvaginal pelvic ultrasound was performed. COMPARISON: None FINDINGS: Uterus: 9.0 x 5.6 x 3.9 cm, Anteflexed. Unremarkable echotexture. Endometrium: 3 mm, unremarkable. IUD in the expected location. Cervix: Unremarkable. Right ovary: 3.0 x 1.4 x 1.7 cm. Unremarkable. Left ovary: 2.5 x 2.4 x 1.6 cm. Ill-defined solid-appearing isoechoic LEFT ovarian lesion with moderate vascularity, color score 3, measuring 2.1 x 1.9 x 1.9 cm. Free fluid: None visualized. Other: Estimated bladder volume 26 mL.. Prominent LEFT parauterine collaterals. US/Pelvic w/ Transvaginal IMPRESSION: 1. IUD in the expected location. 2. 2.1 cm solid appearing LEFT ovarian lesion. Although this could conceivably reflect a collapsed corpus luteal cyst this is not definitive and the finding is technically O-RADS 4. Recommend a follow-up pelvic ultrasound in 4-6 weeks to evaluate for persistence. If this persists, MRI and/or accounts payable technician/oncology consultation would be recommended per O- RADS. 3. Additional description as above. Reading Location: [facility] CC: Dr. Karin Quarles MD; Dr. 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) Auto Clutch Specialist Required: No Is patient in pain?: No Allergies bee venom protein (honey bee) (bees) Allergy (Intermediate, Verified 09/16/24 13:13) Angioedema Sulfa (Sulfonamide Antibiotics) Allergy (Verified 09/16/24 13:13) Hives sulfamethoxazole (From Bactrim) Allergy (Verified 09/16/24 13:13) Hives trimethoprim (From Bactrim) Allergy (Verified 09/16/24 13:13) Hives Medications ???Medication ???Instructions ???Recorded ???Confirmed ???Type rizatriptan 10 mg tablet (Maxalt) See Rx Instructions PO .COMPLEX 1 09/16/24 Rx #10 tabs cholecalciferol (vitamin D3) 50 50 mcg PO QDAY 09/16/24 09/16/24 H istory mcg (2,000 unit) capsule lactobacillus combination no.4 3 3,000 mmu cells PO QDAY 09/16/24 0 09/16/24 History billion cell capsule (Probiotic) sertraline 100 mg tablet (Zoloft) 100 mg PO QDAY 09/16/24 09/16/24 History Post menopausal: No Patient : No : No PFSH Medical History Migraine Family history of early CAD Impingement of right shoulder Right shoulder pain Preventative health care Rectocele Anxiety and depression Forceps delivery Family history of hypercholesterolemia Hyperlipidemia Family history of breast cyst Bilateral headaches Surgical History History of ERCP ( 02/2019) History of cholecystectomy ( 02/2019) [place] teeth extracted History of tonsillectomy Family History Other Cancer Diabetes Heart disease Hypercholesterolemia Hypertension Lymphoma Social History (Updated 09/16/24 @ 13:25 by Marychuy Caldwell) adopted: No household members: spouse and children number of children: 1 current occupational status: employed 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 pets and animals: No sexually active: Yes Smoking Status: Never smoker alcohol intake: current alcohol intake frequency: holidays/special occasions only substance use type: does not use caffeine: Yes (3-4) Type: coffee and other what type of physical activity do you participate in: other details: crossfit frequency: 5-6 times per week seatbelt use: always do you feel safe at home: Yes additional social history: -[employer] [place] [employer] History 1 Elective abortions Hx Para 1 Spontaneous abortions Hx # Term Pregnancies Ectopic pregnancies Hx # Pregnancies Multiple births # of living children Past Pregnancies Del. Date Name GA/Weeks Outcome Route Bth Weight Infant Gen Labor Lgth Anesthesia Del Locatn Provider FOB Unknown 02/13/21 Arnoldo live - full term forceps 7# 12oz Male Dr Bethany Abad Delivery Date: Last Updated by: Sofiya Hernadez SUPERVISOR [employer], SUPERVISOR [employer]-C 4th degree lac with forceps delivery HPI Encounter for routine gynecological examination Details: MICAELA BLANCO is a 29 year old who presents for annual exam. She has great concerns of a rectocele. She had a forceps delivery 4 years ago. She ended up with a 4th degree perineal lacerati on. She suffers with stool and bladder incontinence now and feels self conscious about the appearance of her vagina. Last PAP: 2022 History of abnormal PAP: no Last mammogram: 2022 for lump History of abnormal mammogram: yes, ultrasound stable. Colon cancer screening: n/a Other preventative health care screenings: followed by pcp Female Reproductive History Cycle Length: 21-35 Bleeding Duration: 5 Questions: metorrhagia: No, sexually active: Yes, dyspareunia: No and PCB: No Menopausal Symptoms: No hot flashes, No night sweats, No weight change, No mood changes, No difficulty concentrating, No sleep problems and No change in libido ROS Const Constitutional: Reports as per HPI; Denies fatigue, increased appetite, poor appetite, night sweats, weight gain or weight loss Cardio Card: Denies chest pain Resp Resp: Denies cough or dyspnea GI GI: Reports as per HPI; Denies abdominal pain, bloatin (more content not included)... Normal [facility] Internal Medicine Office Vis ania 07-22-2024 Internal Medicine Office Visit [facility] [address] [place] [address] [place] [address] OFFICE VISIT Date of Service: 07/22/24 MR#: [id number] Acct: [id number] Name: MICAELA BLANCO Rep #: [id number] : 1995 Provider: HEIKE Garcia Age/Sex: 29/F Location: [facility] Status: Signed Intake Vital Signs 03/18/24 14:56 07/22/24 11:07 Height 5 ft 4 in 5 ft 4 in Weight: 154 lb 143 lb 2 oz BMI 26.4 24.5 BP 116/66 102/60 Blood Pressure Location Lt brachial Lt femoral Position Sitting Sitting Respiration 14 12 Pulse 62 57 L Pulse Source Monitor Monitor Temp 97.9 F 97.6 F L Temp Source Temporal Temporal Pulse Oximetry (%) 97 98 Oxygen Delivery Method room air room air Intake Visit Reasons: acute - ADD concerns Chief Complaint: ADD CONCERNS Auto Clutch Specialist Required: No Accompanied by: Self Allergies bee venom protein (honey bee) (bees) Allergy (Intermediate, Verified 07/22/24 11:03) Angioedema Sulfa (Sulfonamide Antibiotics) Allergy (Verified 07/22/24 11:03) Hives sulfamethoxazole (From Bactrim) Allergy (Verified 07/22/24 11:03) Hives trimethoprim (From Bactrim) Allergy (Verified 07/22/24 11:03) Hives Medications ???Medication ???Instructions ???Recorded ???Confirmed ???Type rizatriptan 10 mg tablet (Maxalt) See Rx Instructions PO .COMPLEX 1 07/22/24 Rx #10 tabs sertraline 50 mg tablet 50 mg PO QDAY #90 tabs 05/25/24 Rx Have you fallen in the past year?: No PFSH Medical History Migraine Family history of early CAD Impingement of right shoulder Right shoulder pain Preventative health care Rectocele Anxiety and depression Forceps delivery Family history of hypercholesterolemia Hyperlipidemia Family history of breast cyst Bilateral headaches Surgical History History of ERCP ( 02/2019) History of cholecystectomy ( 02/2019) [place] teeth extracted History of tonsillectomy Family History Other Cancer Diabetes Heart disease Hypercholesterolemia Hypertension Lymphoma Social History adopted: No household members: spouse and children number of children: 1 current occupational status: employed 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 pets and animals: No sexually active: Yes Smoking Status: Never smoker alcohol intake: current alcohol intake frequency: holidays/special occasions only substance use type: does not use caffeine: Yes (3-4) Type: coffee and other what type of physical activity do you participate in: running, aerobics and weight training frequency: 5-6 times per week seatbelt use: always do you feel safe at home: Yes additional social history: -[employer] [place] [employer] Questionnaire DEBI-7 DEBI-7 Feeling nervous, anxious, or on edge: 1 = Several days Not being able to stop or control worryin = Several days Worrying too much about different things: 0 = Not at all Trouble relaxin = Several days Being so restless that it is hard to sit still: 3 = Nearly every day Becoming easily annoyed or irritable: 3 = Nearly every day Feeling afraid as if something awful might happen: 0 = Not at all Total DEBI-7 score (0-4 normal; 5-9 mild; 10-14 moderate; 15-21 severe): 9 Source: Developed by Drs. Timo Barth, Sachi Padgett, Vinnie Lee and colleagues, with an educational gilberto from [employer]. Depression Screen PHQ-2/9 PHQ-2 Over the last 2 weeks, how often have you been bothered by any of the following problems? 1. Little interest or pleasure in doing things: not at all 2. Feeling down, depressed, or hopeless: several days Total score: 1 If score is 2 or greater, continue 3. Trouble falling or staying asleep, or sleeping too much: nearly every day 4. Feeling tired or having little energy: more than half the days 5. Poor appetite or overeating: not at all 6. Feeling bad about yourself - or that you are a failure or have let yourself and your family down: not at all 7. Trouble concentrating on things, such as reading the newspaper or watching television: nearly every day 8. Moving or speaking so slowly that other people could have noticed? - Or the opposite - being so fidgety or restless that you have been moving around a lot more than usual: not at all 9. Thoughts that you would be better off or of hurting yourself in some way: not at all Total score: 9 Source: Developed by Drs. Timo Barth, Sachi Padgett, Vinnie Lee and colleagues, with an educational gilberto from [employer]. HPI HPI Chief Complaint: ADD CONCERNS Details: MICAELA BLANCO, is a 29 F who presents to the office today for some issues with her con (more content not included)... Normal [facility] Coronary Angiography CTon Coronary Angiography CT [facility] Imaging Services [address] [place] [address] 03/31/24 1149 MR#: [id number] Acct: [id number] Name: MICAELA BLANCO Rep #: [id number] : 1995 29 From: Silvio Drew MD PCP: Dr. Karin Quarles MD Status:REG CLI Y Location: CT Calcium Scoring Date of Study:: 03/31/24 Indications Indications: Family history Coronary Calcium Scoring: High-resolution Computed Tomographic imaging of the chest was performed on [03/31/2024], with particular attention paid to the coronary arteries. Images from the examination were analyzed for the presence and extent of coronary artery calcification , using coronary calcium quantification software. The patient tolerated the procedure well and there were no complications. The results of the coronary calcification analysis are provided below. Findings Coronary Artery Left Main (LM): 0 Left Anterior Descending (LAD): 0 Left Circumflex (LCX): 0 Right Coronary Artery (RCA): 0 Total Agatston Score: 0 Percentile Rankin Calcium Scoring Interpretation: Different methods to categorize the overall amount of coronary plaque. Overall amount CAC SIS Visual of coronary plaque P1 Mild -100 <2 1-2 vessels with mild amount of plaque P2 Moderate 101-300 3-4 1-2 vessels with moderate amount, 3 vessels with mild amount of plaque P3 Severe 301-999 5-7 3 vessels with moderate amount, 1 vessel with severe amount of plaque P4 Extensive >1000 >8 2-3 vessels with severe amount of plaque Conclusion: No atherosclerotic plaquing noted. 03/31/24 1150 Date Silvio Drew MD Cosigner Signature (if applicable): Date CC: Dr. Silvio Drew MD; Dr. Karin Quarles MD Signed Normal [facility] Limited Chest CT Cardiac Onl yon 03-31-[address] Cardiac Only [facility] Imaging Services [address] [place] [id number] Cardiac Only MR#: [id number] Acct: [id number] Name: MICAELA BLANCO JASMYN Rep #: [id number] : 1995 F 29 From: Yasir iglesias MD PCP: Dr. Karin Quarles MD Status: [facility] Study: Limited Chest CT Cardiac Only Date of Exam: Exam# [id number] Ordering Dr: [place] [id number] STUDY: CT CHEST WITHOUT CONTRAST REASON FOR EXAM: Female, 29 years old. Family history of ischemic heart disease and other diseases of th -- limited chest over read only RADIATION DOSAGE (If Supplied By Facility): CTDIvol = ( 12.19 ) mGy, DLP = ( 219.42 ) mGycm TECHNIQUE: Transaxial imaging was performed without the administration of intravenous contrast material. Individualized dose optimization techniques were used for this CT. COMPARISON: No relevant priors. FINDINGS: CHEST The lungs are normal. There is no demonstrated pleural abnormality. Normal heart and pericardium. No coronary artery calcification is seen. Normal mediastinum. Normal hilar regions. Normal unenhanced pulmonary arteries. Normal aorta arch and descending thoracic aorta. Normal osseous structures. There is no demonstrated abnormality of the visualized upper abdomen. CT/Limited Chest CT Cardiac Only IMPRESSION: Normal unenhanced CT chest examination. Electronically Signed: Yasir Luz MD at 10:00 EST Reading Location ID and State: [facility] / [place] , Service support , CC: Dr. Karin Quarles MD Inner Tube Tuber Machine Operator: Signed Normal [facility] CBC, Employeeon 03-18-2024 Absolute Lymph 1.44 X10 3/uL Normal 0.83-4.51 [facility] Comment on above: Performed By: #### L 500.2900, L400.0100, L100.0200 #### [facility] [address] [place], [address] Absolute Neut 5.7 X10 3/uL Normal 2.0-7.7 [facility] Comment on above: Performed By: #### L 500.2900, L400.0100, L100.0200 #### [facility] [address] [place], [address] Basophils/100 WBC (Bld) 0.3 % Normal 0-1 [facility] Comment on above: Performed By: #### L 500.2900, L400.0100, L100.0200 #### [facility] [address] [place], [address] Eosinophils/100 WBC (Bld) 1.2 % Normal 0-5 [facility] Comment on above: Performed By: #### L 500.2900, L400.0100, L100.0200 #### [facility] [address] [place], [address] Erythrocyte distribution width (RBC) [Ratio] 13.4 % Normal 11.6-14.6 [facility] Comment on above: Performed By: #### L 500.2900, L400.0100, L100.0200 #### [facility] [address] [place], [address] Hematocrit (Bld) [Volume fraction] 39.7 % Normal 37-47 [facility] Comment on above: Performed By: #### L 500.2900, L400.0100, L100.0200 #### [facility] [address] [place], [address] Hemoglobin (Bld) [Mass/Vol] 13.0 g/dL Normal 12.0-15.0 [facility] Comment on above: Performed By: #### L 500.2900, L400.0100, L100.0200 #### [facility] [address] [place], [address] Lymphocytes/100 WBC (Bld) 18.5 % Low 19-41 [facility] Comment on above: Performed By: #### L 500.2900, L400.0100, L100.0200 #### [facility] [address] [place], [address] MCH (RBC) [Entitic mass] 30.3 pg Normal 27.0-32.0 [facility] Comment on above: Performed By: #### L 500.2900, L400.0100, L100.0200 #### [facility] [address] [place], [address] MCHC (RBC) [Mass/Vol] 32.7 g/dL Normal 32-36 [facility] Comment on above: Performed By: #### L 500.2900, L400.0100, L100.0200 #### [facility] [address] [place], [address] MCV (RBC) [Entitic vol] 92.5 fL Normal 81-99 [facility] Comment on above: Performed By: #### L 500.2900, L400.0100, L100.0200 #### [facility] [address] [place], [address] Monocytes/100 WBC (Bld) 6.4 % Normal 0-10 [facility] Comment on above: Performed By: #### L 500.2900, L400.0100, L100.0200 #### [facility] [address] [place], [address] Neutrophils/100 WBC (Bld) 73.2 % High 47-70 [facility] Comment on above: Performed By: #### L 500.2900, L400.0100, L100.0200 #### [facility] [address] [place], [address] NRBC # 0.00 10 3/uL Normal 0-5 [facility] Comment on above: Performed By: #### L 500.2900, L400.0100, L100.0200 #### [facility] [address] [place], [address] Nucleated RBC (Bld) [#/Vol] 0 10*3/uL Normal 0-5 [facility] Comment on above: Performed By: #### L 500.2900, L400.0100, L100.0200 #### [facility] [address] [place], [address] Platelet mean volume (Bld) [Entitic vol] 9.8 fL Normal 6.2-12.0 [facility] Comment on above: Performed By: #### L 500.2900, L400.0100, L100.0200 #### [facility] [address] [place], [address] Platelets (Bld) [#/Vol] 183 10*3/uL Normal 150-450 [facility] Comment on above: Performed By: #### L 500.2900, L400.0100, L100.0200 #### [facility] [address] [place], [address] RBC (Bld) [#/Vol] 4.29 10*6/uL Normal 4.2-5.4 [facility] Comment on above: Performed By: #### L 500.2900, L400.0100, L100.0200 #### [facility] [address] [place], [address] RDW SD 46.0 fl High 35.1-43.9 [facility] Comment on above: Performed By: #### L 500.2900, L400.0100, L100.0200 #### [facility] [address] [place], [address] WBC (Bld) [#/Vol] 7.8 10*3/uL Normal 4.4-11.0 [facility] Comment on above: Performed By: #### L 500.2900, L400.0100, L100.0200 #### [facility] [address] [place], [address] Employee Profile[employer] 4 Albumin [Mass/Vol] 3.5 g/dL Normal 3.2-5.0 [facility] Comment on above: Performed By: #### L 500.2900, L400.0100, L100.0200 #### [facility] [address], [address] Albumin/Globulin [Mass ratio] 1.1 {ratio} Normal 0.9-2.4 [facility] Comment on above: Performed By: #### L 500.2900, L400.0100, L100.0200 #### [facility] [address] [place], [address] ALK P 53 U/L Normal 45-117 [facility] Comment on above: Performed By: #### L 500.2900, L400.0100, L100.0200 #### [facility] [address] [place], [address] ALT [Catalytic activity/Vol] 20 U/L Normal 13-56 [facility] Comment on above: Performed By: #### L 500.2900, L400.0100, L100.0200 #### [facility] [address] [place], [address] AST [Catalytic activity/Vol] 15 U/L Normal 15-37 [facility] Comment on above: Performed By: #### L 500.2900, L400.0100, L100.0200 #### [facility] [address] [place], [address] Bilirubin [Mass/Vol] 0.30 mg/dL Normal 0.20-1.00 [facility] Comment on above: Result Comment: For patients on eltrombopag therapy, use of Dimension Coulter TBIL is not recommended. Performed By: #### L 500.2900, L400.0100, L100.0200 #### [facility] [address] [place], [address] Bilirubin.direct [Mass/Vol] 0.10 mg/dL Normal 0.00-0.30 [facility] Comment on above: Performed By: #### L 500.2900, L400.0100, L100.0200 #### [facility] [address] [place], [address] BUN/CRE 15.6 RATIO Normal 10-20 [facility] Comment on above: Performed By: #### L 500.2900, L400.0100, L100.0200 #### [facility] [address] [place], [address] CA,Total 8.4 mg/dL Low 8.5-10.1 [facility] Comment on above: Performed By: #### L 500.2900, L400.0100, L100.0200 #### [facility] [address] [place], [address] Chloride [Moles/Vol] 112 mmol/L High 98-107 [facility] Comment on above: Performed By: #### L 500.2900, L400.0100, L100.0200 #### [facility] [address], [address] CHOL:HDL 2.70 Normal [facility] Comment on above: Performed By: #### L 500.2900, L400.0100, L100.0200 #### [facility] [address] [place], [address] Cholesterol [Mass/Vol] 138 mg/dL Normal 200 [facility] Comment on above: Result Comment: <200 mg/dL Desirable 200-240 mg/dL Borderline >240 mg/dL High Risk Performed By: #### L 500.2900, L400.0100, L100.0200 #### [facility] [address] [place], [address] Cholesterol in HDL [Mass/Vol] 52 mg/dL Normal [facility] Comment on above: Result Comment: The drugs N-Acetylcysteine and Metamizole may falsely depress this assay. Reference Range HDL <40 mg/dL Low HDL Cholesterol HDL >or= 60 mg/dL High HDL Cholesterol Performed By: #### L 500.2900, L400.0100, L100.0200 #### [facility] [address] [place], [address] Cholesterol in LDL [Mass/Vol] 77 mg/dL Normal 0-130 [facility] Comment on above: Performed By: #### L 500.2900, L400.0100, L100.0200 #### [facility] [address] [place], [address] Cholesterol in VLDL [Mass/Vol] 9 mg/dL Normal 5-40 [facility] Comment on above: Performed By: #### L 500.2900, L400.0100, L100.0200 #### [facility] [address] [place], [address] CO2 [Moles/Vol] 24.0 mmol/L Normal 21.0-32.0 [facility] Comment on above: Performed By: #### L 500.2900, L400.0100, L100.0200 #### [facility] [address] [place], [address] Creatinine [Mass/Vol] 0.70 mg/dL Normal 0.55-1.02 [facility] Comment on above: Result Comment: The validity of the calculated GFR GFRAA in patients over 70 years has not been determined. Clinical correlation is essential. Performed By: #### L 500.2900, L400.0100, L100.0200 #### [facility] [address] [place], [address] EST GFR - AA 126 mL/min Normal >60 [facility] Comment on above: Result Comment: Afri can Ken[place] GFR Calc Performed By: #### L 500.2900, L400.0100, L100.0200 #### [facility] [address] [place], [address] GAP 5 Normal 5-15 [facility] Comment on above: Performed By: #### L 500.2900, L400.0100, L100.0200 #### [facility] [address] [place], [address] GFR/1.73 sq M.predicted among non-blacks MDRD (S/P/Bld) [Vol rate/Area] 104 mL/min/{1.73_m2} Normal >60 [facility] Comment on above: Result Comment: Non- GFR Calc Performed By: #### L 500.2900, L400.0100, L100.0200 #### [facility] [address] [place], [address] Globulin (S) [Mass/Vol] 3.2 g/dL Normal 2.2-4.2 [facility] Comment on above: Performed By: #### L 500.2900, L400.0100, L100.0200 #### [facility] [address] [place], [address] Glucose [Mass/Vol] 97 mg/dL Normal 74-106 [facility] Comment on above: Performed By: #### L 500.2900, L400.0100, L100.0200 #### [facility] [address] [place], [address] LDH 143 U/L Normal 84-246 [facility] Comment on above: Performed By: #### L 500.2900, L400.0100, L100.0200 #### [facility] [address] [place], [address] Phosphate [Mass/Vol] 3.1 mg/dL Normal 2.5-4.9 [facility] Comment on above: Performed By: #### L 500.2900, L400.0100, L100.0200 #### [facility] [address] [place], [address] Potassium [Moles/Vol] 4.0 mmol/L Normal 3.5-5.1 [facility] Comment on above: Performed By: #### L 500.2900, L400.0100, L100.0200 #### [facility] [address] [place], [address] Sodium [Moles/Vol] 141 mmol/L Normal 136-145 [facility] Comment on above: Performed By: #### L 500.2900, L400.0100, L100.0200 #### [facility] [address] [place], [address] T PROT 6.7 g/dL Normal 6.4-8.2 [facility] Comment on above: Performed By: #### L 500.2900, L400.0100, L100.0200 #### [facility] [address] [place], [address] Triglyceride [Mass/Vol] 44 mg/dL Normal [facility] Comment on above: Result Comment: The drugs N-Acetylcysteine and Metamizole may falsely depress this assay. Serum Triglycerides Reference Interval Normal <150 mg/dL Borderline high 150 - 199 mg/dL High 200 - 499 mg/dL Very High > or = 500 mg/dL Performed By: #### L 500.2900, L400.0100, L100.0200 #### [facility] [address] [place], [address] Urea nitrogen [Mass/Vol] 11 mg/dL Normal 7-18 [facility] Comment on above: Performed By: #### L 500.2900, L400.0100, L100.0200 #### [facility] [address] [place], [address] URIC 4.3 mg/dL Normal 2.6-6.0 [facility] Comment on above: Result Comment: The drugs N-Acetylcysteine and Metamizole may falsely depress this assay. Performed By: #### L 500.2900, L400.0100, L100.0200 #### [facility] [address] [place], [address] Internal Medicine Office Vis ania 03-18-2024 Internal Medicine Office Visit [facility] [address] [place] [address] [place] [address] OFFICE VISIT Date of Service: 03/18/24 MR#: [id number] Acct: [id number] Name: MICAELA BLANCO Rep #: [id number] : 1995 Provider: Dr. Karin frias MD Age/Sex: 29/F Location: [facility] Status: Signed Intake Vital Signs 09/10/23 11:25 02/07/24 07:58 03/18/24 14:56 Height 5 ft 4 in 5 ft 4 in 5 ft 4 in Weight: 154 lb BMI 26.4 BP 116/66 Blood Pressure Location Lt brachial Position Sitting Respiration 14 Pulse 62 Pulse Source Monitor Temp 97.9 F Temp Source Temporal Pulse Oximetry (%) 97 Oxygen Delivery Method room air Intake Visit Reasons: PHYSICAL Chief Complaint: Yearly visit. Migraine. Auto Clutch Specialist Required: No Is patient in pain?: No Allergies bee venom protein (honey bee) (bees) Allergy (Intermediate, Verified 03/18/24 14:52) Angioedema Sulfa (Sulfonamide Antibiotics) Allergy (Verified 03/18/24 14:47) Hives sulfamethoxazole (From Bactrim) Allergy (Verified 03/18/24 14:47) Hives trimethoprim (From Bactrim) Allergy (Verified 03/18/24 14:47) Hives Medications ???Medication ???Instructions ???Recorded ???Confirmed ???Type sertraline 50 mg tablet 50 mg PO QDAY #90 tabs 01/31/24 03/18/24 Rx rizatriptan 10 mg tablet (Maxalt) See Rx Instructions PO .COMPLEX 03/18/24 03/18/24 Rx #10 tabs PFSH Medical History (Updated 03/18/24 @ 16:[address] Karin Quarles MD) Migraine Family history of early CAD Impingement of right shoulder Right shoulder pain Preventative health care Rectocele Anxiety and depression Forceps delivery Family history of hypercholesterolemia Hyperlipidemia Family history of breast cyst Bilateral headaches Surgical History History of ERCP ( 02/2019) History of cholecystectomy ( 02/2019) [place] teeth extracted History of tonsillectomy Family History (Updated 03/18/24 @ 14:53 by Melodie Veras MA) Other Cancer Diabetes Heart disease Hypercholesterolemia Hypertension Lymphoma Social History (Updated 03/18/24 @ 14:54 by Melodie Veras MA) adopted: No household members: spouse and children number of children: 1 service: No current occupational status: employed 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 HPI HPI Chief Complaint: Yearly visit. Migraine. Details: MICAELA BLANCO, is a 29 F who presents to the office today for yearly visit. Also has some concerns. Had her labs done today. Overall, stable. Has concerns due to family history of early CAD. Her father had his first stent at age 32. Paternal grandmother also a history of bypass however in her later years. Father smoked and chewed tobacco. She reports a chronic history of migraine and over the last couple of months, has had a few episodes. She reports increased stressors. Has been taking NSAIDs, Maxalt and Tylenol. No significant associated factors. Chronic history of anxiety and depression on Zoloft. Continues to find this helpful. ROS Const Constitutional: No body ache, chills, excessive sweating, fatigue, fever(s), frequent falls, headache(s), snoring, weakness, sleep problems or change in appetite Eyes Eyes: No blurry vision, change in vision, bulging eyes, floaters, visual disturbances, eye pain or Light sensitivity ENT ENT: No abnormal hearing, ear or mastoid pain, tinnitus, balance problems, nosebleed/epistaxis, nasal congestion, headache(s), neck pain or sore throat Resp Respiratory: No cough, excessive phlegm production, pain on inspiration, shortness of breath, snoring or wheezing Cardio Cardiology: No chest pain at rest, chest pain with exertion, excessive sweating, shortness of breath, dyspnea on exertion, lightheadedness, orthopnea or palpitations Gastro GI: No abdominal pain, change in bowel habits, constipation, cramping, diarrhea, nausea/dyspepsia or vomiting Genitourinary-Female: No burning urination, painful urination, urinary incontinence, urinary frequency, suprapubic fullness, side pain, abnormal vaginal bleeding or pelvic pain Musc Musculoskeletal: No abnormal gait, joint pain, back pain, limited range of motion, neck pain or numb (more content not included)... Normal [facility] Urinalysis, Employeeon 03-18 BILIRUBIN URINE Normal Negative [facility] Comment on above: Order Comment: CLEAN CATCH Result Comment: NOT WANTED Performed By: #### L 500.2900, L400.0100, L100.0200 #### [facility] [address] [place], [address] Clarity (U) Normal Clear [facility] Comment on above: Order Comment: CLEAN CATCH Result Comment: NOT WANTED Performed By: #### L 500.2900, L400.0100, L100.0200 #### [facility] [address] [place], [address] Color (U) Normal Yellow [facility] Comment on above: Order Comment: CLEAN CATCH Result Comment: NOT WANTED Performed By: #### L 500.2900, L400.0100, L100.0200 #### [facility] [address] [place], [address] GLUCOSE, UR Normal Normal [facility] Comment on above: Order Comment: CLEAN CATCH Result Comment: NOT WANTED Performed By: #### L 500.2900, L400.0100, L100.0200 #### [facility] [address] [place], [address] KETONE UR Normal Negative [facility] Comment on above: Order Comment: CLEAN CATCH Result Comment: NOT WANTED Performed By: #### L 500.2900, L400.0100, L100.0200 #### [facility] [address], [address] LEUK ESTERASE Normal Negative [facility] Comment on above: Order Comment: CLEAN CATCH Result Comment: NOT WANTED Performed By: #### L 500.2900, L400.0100, L100.0200 #### [facility] [address] [place], [address] Nitrite Ql (U) Normal Negative [facility] Comment on above: Order Comment: CLEAN CATCH Result Comment: NOT WANTED Performed By: #### L 500.2900, L400.0100, L100.0200 #### [facility] [address], [address] OCCULT BLOOD-UR Normal Negative [facility] Comment on above: Order Comment: CLEAN CATCH Result Comment: NOT WANTED Performed By: #### L 500.2900, L400.0100, L100.0200 #### [facility] [address], [address] pH UR Normal 5.0 - 8.0 [facility] Comment on above: Order Comment: CLEAN CATCH Result Comment: NOT WANTED Performed By: #### L 500.2900, L400.0100, L100.0200 #### [facility] [address] [place], [address] PROT DIPSTX Normal Negative [facility] Comment on above: Order Comment: CLEAN CATCH Result Comment: NOT WANTED Performed By: #### L 500.2900, L400.0100, L100.0200 #### [facility] [address] [place], [address] SP.GR. DIPSTX Normal 1.002-1.030 [facility] Comment on above: Order Comment: CLEAN CATCH Result Comment: NOT WANTED Performed By: #### L 500.2900, L400.0100, L100.0200 #### [facility] [address] [place], [address] UR Preservative Normal [facility] Comment on above: Order Comment: CLEAN CATCH Result Comment: NOT WANTED Performed By: #### L 500.2900, L400.0100, L100.0200 #### [facility] [address] [place], [address] UROBILI Normal Normal [facility] Comment on above: Order Comment: CLEAN CATCH Result Comment: NOT WANTED Performed By: #### L 500.2900, L400.0100, L100.0200 #### [facility] [address] [place], [address] Orthopedic Visit Reporton Orthopedic Visit Report [facility] [address] [place] [address] [address] [place] [address] OFFICE VISIT Date of Service: 02/07/24 MR#: [id number] Acct: [id number] Name: MICAELA BLANCO Rep #: [id number] : 1995 Provider: Dr. Yaron clark MD Age/Sex: 29/F Location[place] [facility] Status: Signed with Addenda ADDENDUM by Adriana Hartmann on 02/07/24 at 0849 Office Procedure Documentation entered by Adriana Hartmann 02/07/24 08:49: Ortho Injections Injections Yes Subacromial Injection Right Is this a patient provided medication?: No Details: Obtained consent for injection. Under sterile conditions, injected the patients right shoulder with 2cc Kenalog 4cc Bupivacaine. The patient tolerated the injection well without any noted complication. Patient should call our office if redness develops, pain worsens or if they have any concerns. Office Meds Kenalog 40 mg/mL suspension for injection Performing Provider: Yaron Red MD Performing Location: [facility] Administered by: Yaron Red MD on 02/07/24 08:48 Dose Route Admin Location Dispensed Lot Number Expiration Date SHAHNAZ [employer] u[employer]urer 80 mg intra-articular right shoulder 2 mL [id number] 08/25/25 5483-0694-84 [employer] Date cc: * Signed Intake Vital Signs 09/10/23 11:25 02/07/24 07:58 Height 5 ft 4 in 5 ft 4 in Weight: 149 lb BMI 25.5 Intake Visit Reasons: RIGHT SHOULDER Chief Complaint: right shoulder Is patient in pain?: Yes (right shoulder) Pain scale (1-10): 6 Allergies Sulfa (Sulfonamide Antibiotics) Allergy (Verified 02/07/24 07:56) Hives sulfamethoxazole (From Bactrim) Allergy (Verified 02/07/24 07:56) Hives trimethoprim (From Bactrim) Allergy (Verified 02/07/24 07:56) Hives Medications ???Medication ???Instructions ???Recorded ???Confirmed ???Type sertraline 50 mg tablet 50 mg PO QDAY #90 tabs 01/31/24 02/07/24 Rx PFSH Medical History (Updated 02/07/24 @ 08:30 by Yaron Red MD) Impingement of right shoulder Right shoulder pain Preventative health care Rectocele Anxiety and depression Forceps delivery Family history of hypercholesterolemia Hyperlipidemia Family history of breast cyst Bilateral headaches Surgical History History of ERCP ( 02/2019) History of cholecystectomy ( 02/2019) [place] teeth extracted History of tonsillectomy Family History Other Cancer Diabetes Heart disease Hypercholesterolemia Hypertension Social History adopted: No household members: spouse and children number of children: 1 current occupational status: employed 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 Yaron Red MD 02/07/24 0754. Part of today???s visit was documented by [ ], acting as scribe. 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 right shoulder pain, RHD, lateral side, worse with raising over the last month, no recent injury, sometimes worse at night. level of the pain 0 at rest, raising then 5/10. no laxity or dislocations. tx- no surgery, no cortisone. 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 declaration. Ortho Exam General General: Yes no acute distress Neurologic: Yes alert and Yes oriented x3 Psychologic: Yes reasonable and appropriate Right Shoulder Skin/Wound: Yes CDI, No ecchymosis, No erythema and No swelling Testing: Positive Hawkin's, Neer's, Speed's, TTP Biceps, AROM-Forward Elevation 0-180, AROM-External Rotation at side 0-60, empty can and belly press normal; Negative TTP AC Joint, Drop Arm, cross arm, scapular symmetry or scapular winging SHOULDER: normal motor and sens to ax nerve, and MRU and AIN/PIN strength fe and er 5/5. painful arc sign. strong rad pulse. Supplemental Info [facility] Imaging Services [address] [place] [address] Shoulder min 2 Views MR#: [id number] Acct: [id number] Name: MICAELA BLANCO Rep #: [id number] : (more content not included)... Normal [facility] Shoulder min 2 Viewson 02-05 Shoulder min 2 Views [facility] Imaging Services [address] [place] [address] Shoulder min 2 Views MR#: [id number] Acct: [id number] Name: MICAELA BLANCO Rep #: [id number] : 1995 F 29 From: Danis Valera DO PCP: Dr. Karin Quarles MD Status: REG CLI Study: Shoulder min 2 Views Date of Exam: 02/06/24 Exam# [id number] Ordering [place]: [place] [id number] INDICATION: pain EXAMINATION/TECHNIQUE: X-RAY - RIGHT XR Shoulder 4 VIEWS COMPARISON: FINDINGS: SOFT TISSUES: No soft tissue swelling or gas. No radiopaque foreign body. BONES/JOINTS: No acute fracture or subluxation.. Normal alignment. Preservation of the joint space.. No sclerotic or destructive changes observed. RAD/Shoulder min 2 Views IMPRESSION: Negative. Electronically Signed: Danis Valera DO at 17:06 EDT Reading Location ID and State: [facility] / [place] Tel [phone], Service support , CC: Dr. Karin Quarles MD; Dr. Yaron Red MD Inner Tube Tuber Machine Operator: Signed Normal [facility] Urgent Care Visit Reporton 0 01-31-2024 Urgent Care Visit Report [facility] [address], [address] [place] [address] OFFICE VISIT Date of Service: 01/31/24 MR#: [id number] Acct: [id number] Name: MICAELA BLANCO Rep #: [id number] : 1995 Provider: HEIKE Ascencio Age/Sex: 29/F Location: [facility] Status: Signed Intake Vital Signs 09/10/23 11:25 01/31/24 15:18 Height 5 ft 4 in BP 122/68 H Blood Pressure Location Lt brachial Position Sitting Respiration 16 Pulse 79 Pulse Source NIBP Temp 98.2 F Temp Source Temporal Pulse Oximetry (%) 98 Oxygen Delivery Method room air Intake Visit Reasons: BEE STING ON INSIDE L WRIST Chief Complaint: bee sting Auto Clutch Specialist Required: No Is patient in pain?: Yes Allergies Sulfa (Sulfonamide Antibiotics) Allergy (Verified 01/31/24 15:19) Hives sulfamethoxazole (From Bactrim) Allergy (Verified 01/31/24 15:19) Hives trimethoprim (From Bactrim) Allergy (Verified 01/31/24 15:19) Hives Is last menstrual period known: No Post menopausal: No Patient : No Have you fallen in the past year?: No Nurse's Note: bee sting LFA x 2 days ago, continued redness and swelling. has taken numerous doses of benadryl but s/s continue [facility] Medical History Anxiety and depression Bilateral headaches Family history of breast cyst Family history of hypercholesterolemia Forceps delivery Hyperlipidemia Preventative health care Rectocele Surgical History History of cholecystectomy ( 02/2019) History of ERCP ( 02/2019) History of tonsillectomy [place] teeth extracted Family History Other Cancer Diabetes Heart disease Hypercholesterolemia Hypertension Social History adopted: No household members: spouse and children number of children: 1 current occupational status: employed 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 HPI HPI Chief Complaint: bee sting Details: MICAELA BLANCO, is a 29 F who presents to the office today for complaint of a bee sting to the left forearm. Patient states that she got the bee sting 2 days ago and continues to have swelling, itching and redness around the area. Patient states that she has tried quite a bit of Benadryl with no relief of the itching and swelling. She denies lip/tongue/throat swelling. No shortness of breath or difficulty breathing. No other associated symptoms or alleviating/aggravating factors. ROS Const Constitutional: No other (6 system ROS completed with pertinent findings in the HPI otherwise normal.) Exam Const General: cooperative and healthy appearing [facility] Head: normocephalic and atraumatic Ears: hearing grossly normal bilaterally Nose: external nose normal Face and sinus: normal facial exam and face symmetric Mouth: oral mucosae normal Throat: posterior oropharynx normal Resp Effort Inspection: normal respiratory effort Cardio Rate: regular rate Skin Other: Mild erythema and soft tissue swelling left forearm just proximal to the ventral wrist. No extending erythema or lymphadenopathy. Neuro General: patient alert Psych Appearance: grossly normal Mental Status: mental status grossly normal Office Procedures Ortho Injections Injections Is this a patient provided medication?: No Office Meds Kenalog 40 mg/mL suspension for injection Performing Provider: HEIKE Myers Performing Location: [facility] Administered by: Lisha Mcghee on 01/31/24 15:32 Dose Route Admin Location Dispensed Lot Number Expiration Date [facility] Man ufacturer 60 mg IM left deltoid 1.5 mL [id number] 09/24/25 5565-3795-53 [facility] Coding Level of Care Code Off vis,new,level 3 Diagnoses Bee sting reaction T63.441A Assessment and Plan Assessment and Plan (1) Bee sting reaction: Status: Acute Orders: Orders Kenalog Injection Today T63.441A - Toxic effect of venom of bees, accidental (unintentional), initial encounter Plan Kenalog injection given in the office today. Patient advised she may continue with Benadryl and Pepcid to help with the itch. Advised of potential red flags and when appropriate to report to the ED. Patient verbalized understanding and agreement with all the above. Plan Details Goals Barriers: (more content not included)... Normal [facility] Office Visit Reporton 2023 Office Visit Report [facility] [address] [place] [address] OFFICE VISIT Date of Service: 12/26/23 MR#: [id number] Acct: [id number] Patient: MICAELA BLANCO Rep #: [id number] : 1995 Provider: HEIKE Ascencio Age/Sex: 28/F Location: [facility] Status: Signed Employer Purchased Covid Test Note: Patient here today for Covid Testing, requested by their Employer. Assessment and Plan Assessment and Plan Orders: Orders POC Cepheid Covid, EnocAB, RSV 12/26/23 Plan Details Goals Barriers: Goals Decrease pain Decrease spasm Decrease inflammation Improve ROM/workability Barriers Nursing 12/27/23 1402 Date Kelvin Monique Signature: Date (if applicable) CC: Normal [facility] Office Visit Reporton 2023 Office Visit Report [facility] [address] [place] [address] OFFICE VISIT Date of Service: 12/26/23 MR#: [id number] Acct: [id number] Patient: MICAELA BLANCO Rep #: [id number] : 1995 Provider: HEIKE Ascencio Age/Sex: 28/F Location: [facility] Status: Signed 12/26/23 1637 Date Kelvin Monique Signature: Date (if applicable) CC: Normal [facility] Cervical or vagninal specime n microscopic examination by cytology stain (reported asOrdered By: Sofiya Hernadez on 09-05-2022 Cytology report Cyto stain Doc (Cvx/Vag) Comment . [facility] Comment on above: The Pap smear is a s creening test designed to aid in thedetection of premalignant and malignant conditions of theuterine cervix. It is not a diagnostic procedure andshould not be used as the sole means of detecting cervicalcancer. Both false-positive and false-negative reports dooccur. Laboratory - CytologyOrdered By: Sofiya Hernadez on 09-05-2022 Medical Services Manager Cyto stain Nom (Cvx/Vag) [ID] Comment . [facility] Comment on above: Mickie Grimaldo [employer] hnologist (ASCP) Laboratory - Miscellaneous t estsOrdered By: Sofiya Hernadez on 09-05-2022 Service comment (Unsp spec) [Interp] Comment . [facility] Comment on above: This liquid based Th inPrep(R) pap test was screened withthe use of an image guided system. Service comment (Unsp spec) [Interp] . . [facility] No Panel InformationOrdered By: Sofiya Hernadez on 09-05-2022 Human Papillomavirus Screen Comment . [facility] Comment on above: The HPV DNA reflex c lesly were not met with this specimenresult therefore, no HPV testing was performed.Performed at: [facility] [id number] Director: Jocelyne Redd MD, Phone: [phone] Pathology report final diagnosis Narrative Comment . [facility] Comment on above: NEGATIVE FOR INTRAEP ITHELIAL LESION OR MALIGNANCY. No Panel Informationon 03-27 Trichomonas vaginalis (PCR) Negative Negative [facility] Work Phone: Basophil percentageon 2021 Basophil percentage 0 SEEN /hpf 0-5 [facility] Work Phone: Bilirubin Test strip Ql (U)o n 03-21-2022 Bilirubin Ql (U) Negative Negative [facility] Work Phone: Ketones Test strip Ql (U)on 03-21-2022 Ketones Ql (U) Negative Negative [facility] Work Phone: Laboratory - Chemistry and C hemistry - challengeon 03-21-2022 HCG ( test) Ql (U) Negative [facility] Work Phone: Comment on above: Very dilute urine sp ecimens, as indicated by a low specificgravity, may not contain counter sales representative levels of hCG. If is still suspected, a first morning urinespecimen should be collected 48 hours later and tested. Mucus LM Ql (Urine sed)on Mucus Ql (Urine sed) 0 SEEN /hpf [facility] Work Phone: Nitrite Test strip Ql (U)on 03-21-2022 Nitrite Ql (U) Negative Negative [facility] Work Phone: Protein Test strip Ql (U)on 03-21-2022 Protein Ql (U) Negative Negative [facility] Work Phone: Squamous epithelial cells de tection in urine sediment by light microscopyon 03-21-2022 Epithelial cells.squamous LM Ql (Urine sed) 0-5 SEEN /hpf 5-10 [facility] Work Phone: Urine blood detectionon 02-25 RBC Ql (U) Negative Negative [facility] Work Phone: RBC Ql (U) 0 SEEN /hpf 0-5 [facility] Work Phone: Urine clarityon 03-21-2022 Clarity (U) Clear Clear [facility] Work Phone: Urine color determinationon 03-21-2022 Color (U) Straw Yellow [facility] Work Phone: Urine glucose detectionon Glucose Ql (U) Normal mg/dl Normal [facility] Work Phone: Urine leukocyte esterase det ection by dipstickon 03-21-2022 Leukocyte esterase Test strip Ql (U) Negative Negative [facility] Work Phone: Urine pHon 03-21-2022 pH (U) 6.5 [pH] 5.0 - 8.0 [facility] Work Phone: Urine sediment bacteria coun t by microscopy (number/high power field)on 03-21-2022 Bacteria LM.HPF (Urine sed) [#/Area] 0 /[HPF] None Seen [facility] Work Phone: Urine specific gravity measu rementon 03-21-2022 Specific gravity (U) [Rel density] 1.005 1.002-1.030 [facility] Work Phone: Urobilinogen Auto test strip Ql (U)on 03-21-2022 Urobilinogen Ql (U) Normal mg/dl Normal [facility] Work Phone: CNTHERAPYon 06-02-2021 CNTHERAPY OT/PT/Speech Visit (PTWS) MICAELA BLANCO ([id number]) 1995 F Date Time Provider Department 06/02/21 3:30 PM GILBERTO RODRIGUEZ PTARTHUR Date Time Provider Department [place] 06/02/2021 3:30 PM [id number], CARA PTWS [facility] Reason for Visit: PT Discharge [752] Primary Visit Diagnosis:Muscle weakness [M62.81] Other Visit Diagnosis:Fourth degree laceration of perineum during delivery, [O70.3] Allergies As of Date: 06/02/2021 Noted Allergy Reaction BACTRIM (SULFAMETHOXAZOLE-TRIME TH*01/29/2019 4 - Hives SULFA (SULFONAMIDE ANTIBIOTICS) 01/29/2019 4 - Hives Date Reviewed: 03/02/2019 Reviewed by: Cady Vang LPN - Fully Assessed Prescriptions as of 06/02/2021 - OTC PRODUCT Take by mouth once daily. Nutritional supplement called Balance - famotidine (PEPCID AC) 20 mg tablet Take 20 mg by mouth once daily. Normal [facility] CNTHERAPYon 05-08-2021 CNTHERAPY OT/PT/Speech Visit (PTWS) FRANCISMICAELA Charisma ([id number]) 1995 F Date Time Provider Department 05/08/21 12:30 PM GILBERTO RODRIGUEZ Date Time Provider Department [place] 05/08/2021 12:30 PM [id number] RODRIGUEZ Reason for Visit: Physical Therapy [503] Primary Visit Diagnosis:Muscle weakness [M62.81] Other Visit Diagnosis:Fourth degree laceration of perineum during delivery, [O70.3] Allergies As of Date: 05/08/2021 Noted Allergy Reaction BACTRIM (SULFAMETHOXAZOLE-TRIME TH*01/29/2019 4 - Hives SULFA (SULFONAMIDE ANTIBIOTICS) 01/29/2019 4 - Hives Date Reviewed: 03/02/2019 Reviewed by: Cady Vang LPN - Fully Assessed Prescriptions as of 05/08/2021 - OTC PRODUCT Take by mouth once daily. Nutritional supplement called Balance - famotidine (PEPCID AC) 20 mg tablet Take 20 mg by mouth once daily. Normal [facility] CNTHERAPYon 05-01-2021 CNTHERAPY OT/PT/Speech Visit (PTWS) MICAELA BLANCO ([id number]) 1995 F Date Time Provider Department 05/01/21 5:45 PM GILBERTO RODRIGUEZ PTARTHUR Date Time Provider Department [place] 05/01/2021 5:45 PM [id number], CARA PTARTHUR [facility] Reason for Visit: PT Eval [747] Primary Visit Diagnosis:Muscle weakness [M62.81] Other Visit Diagnosis:Fourth degree laceration of perineum during delivery, [O70.3] Allergies As of Date: 05/01/2021 Noted Allergy Reaction BACTRIM (SULFAMETHOXAZOLE-TRIME TH*01/29/2019 4 - Hives SULFA (SULFONAMIDE ANTIBIOTICS) 01/29/2019 4 - Hives Date Reviewed: 03/02/2019 Reviewed by: Cady Vang LPN - Fully Assessed Prescriptions as of 05/01/2021 - OTC PRODUCT Take by mouth once daily. Nutritional supplement called Balance - famotidine (PEPCID AC) 20 mg tablet Take 20 mg by mouth once daily. Normal [facility] Echocardiogram, Adult (AO)o n 11-01-2017 Echocardiogram, Adult (AO) Normal [facility] [place] [facility] Holter Monitoron [facility] Holter Monitor Normal [facility] [place] Culture, urine Bacteria identified Cx Nom (U) Presumptive Lactobacillus sp. [facility] Work Phone: Vital Signs Date Time Vital Sign Value Performing Clinician Nohemy wang 12-18-2022 09:58-0400 Body height 162.[address] Karin Quarles Work Phone: [facility] 12-18-2022 09:54-0400 Body mass index (BMI) [Ratio] 24.7 kg/m2 Dr. Karin Quarles Work Phone: [facility] 12-18-2022 09:54-0400 Body weight 65.[address] Karin Qurales Work Phone: [facility] 12-18-2022 09:54-0400 Diastolic blood pressure 64 mm[Hg] Dr. Karin Quarles Work Phone: [facility] 12-18-2022 09:54-0400 Systolic blood pressure 118 mm[Hg] Dr. Karin Quarles Work Phone: [facility] 10-26-2022 08:28-0400 Body mass index (BMI) [Ratio] 24.3 kg/m2 Dr. Karin Quarles Work Phone: [facility] 10-26-2022 08:28-0400 Body weight 64.[address] Karin Quarles Work Phone: [facility] 10-26-2022 08:28-0400 Diastolic blood pressure 72 mm[Hg] Dr. Karin Quarles Work Phone: [facility] 10-26-2022 08:28-0400 Systolic blood pressure 114 mm[Hg] Dr. Karin Quarles Work Phone: [facility] 09-05-2022 14:45-0400 Body height 162.[address] Karin Quarles Work Phone: [facility] 09-05-2022 14:37-0400 Body mass index (BMI) [Ratio] 23.6 kg/m2 Dr. Karin Quarles Work Phone: [facility] 09-05-2022 14:37-0400 Body weight 62.[address] Karin Quarles Work Phone: [facility] 09-05-2022 14:37-0400 Diastolic blood pressure 64 mm[Hg] Dr. Karin Quarles Work Phone: [facility] 09-05-2022 14:37-0400 Systolic blood pressure 112 mm[Hg] Dr. Karin Quarles Work Phone: [facility] 03-21-2022 10:35-0400 Body height 162.[address] Karin Quarles Work Phone: [facility] Work Phone: 03-21-2022 10:35-0400 Body mass index (BMI) [Ratio] 23.1 kg/m2 Dr. Karin Quarles Work Phone: [facility] Work Phone: 03-21-2022 10:35-0400 Body temperature 96.8 [degF] Dr. Karin Quarles Work Phone: [facility] Work Phone: 03-21-2022 10:35-0400 Body weight 61.[address] Karin Quarles Work Phone: [facility] Work Phone: 03-21-2022 10:35-0400 Diastolic blood pressure 62 mm[Hg] Dr. Karin Quarles Work Phone: [facility] Work Phone: 03-21-2022 10:35-0400 Heart rate 86 /min Dr. Karin Quarles Work Phone: [facility] Work Phone: 03-21-2022 10:35-0400 Respiratory rate 16 /min Dr. Karin Quarles Work Phone: [facility] Work Phone: 03-21-2022 10:35-0400 SaO2% (BldA) [Mass fraction] 97 % Dr. Karin Quarles Work Phone: [facility] Work Phone: 03-21-2022 10:35-0400 Systolic blood pressure 116 mm[Hg] Dr. Karin Quarles Work Phone: [facility] Work Phone: Encounters Encounter Date Encounter Type Care Provider Facility Start: 10-27-2024 ambulatory Laura Almonte Fa cility:[facility] Start: 09-21-2024 End: 09-21-2024 ambulatory Laura Almonte Facility:[facility] Start: 09-16-2024 End: 09-16-2024 ambulatory Laura Almonte Facility:[facility] Start: 07-22-2024 End: 07-22-2024 ambulatory Marques BURROUGHS Facility:[facility] Start: 03-31-2024 ambulatory Silvio rDew [facility] Start: 03-31-2024 End: 03-31-2024 ambulatory Karin Quarles Facility:[facility] Start: 03-18-2024 End: 03-18-2024 ambulatory Karin Quarles Facility:[facility] Start: 03-18-2024 ambulatory Health Risk Assessment Facility:[facility] Start: 02-07-2024 End: 02-07-2024 ambulatory Yaron Red Facility:[facility] Start: 02-06-2024 End: 02-06-2024 ambulatory Yaron Red Facility:[facility] Start: 01-31-2024 End: 01-31-2024 ambulatory Kelvin BURROUGHS Facility:[facility] Start: 12-26-2023 End: 12-26-2023 ambulatory Kelvin BURROUGHS Facility:[facility] Start: 12-21-2022 End: 12-21-[address] Karin Quarles Work Phone: [facility] Work Phone: Start: 12-21-2022 End: 12-21-[address] Karin Quarles Work Phone: [facility]-Outpatient Breast Imaging Work Phone: Start: 12-18-2022 End: 12-18-[address] Karin Quarles Work Phone: [facility] Work Phone: Start: 12-11-2022 End: 12-11-[address] [facility] Work [facility]: Start: 12-04-2022 End: 12-04-[address] [facility] Work [facility]: Start: 10-29-2022 End: 10-29-[address] Karin Quarles Work Phone: [facility]-Ultrasound, H Work Phone: Start: 10-26-2022 End: 10-26-[address] Karin Quarles Work Phone: [facility] Work Phone: Start: 09-05-2022 End: 09-05-[address] Karin Quarles Work Phone: [facility] Work Phone: Start: 09-05-2022 End: 09-05-[address] Karin Quarles Work Phone: [facility]-Laboratory, Specimen Start: 09-05-2022 End: 09-05-[address] Karin Quarles Work Phone: [facility] Start: 06-12-2022 End: 06-12-[address] Karin Quarles Work Phone: [facility] Start: 03-27-2022 End: 03-27-[address] Karin Quarles Work Phone: [facility] Work Phone: Start: 03-27-2022 End: 03-27-[address] Karin Quarles Work Phone: [facility]-Laboratory, Specimen Start: 03-21-2022 End: 03-21-[address] Karin Quarles Work Phone: [facility] Work Phone: Start: 03-21-2022 End: 03-21-[address] Kairn Quarles Work Phone: [facility] Start: 12-21-2021 End: 12-21-[address] Karin Quarles Work Phone: [facility] Start: 01-24-[address] Karin Quarles Work Phone: [facility] Work Phone: Start: 11-01-2017 End: 11-02-2017 Ambulatory JOSE BENITEZ Facility:[facility] Start: 10-17-2017 End: 10-18-2017 Ambulatory JOSE BENITEZ Facility:[facility] Procedures Date Procedure Procedure Detail Performing Clinician Start: 12-21-2022 Bilateral mammography Charisma Quarles Work Phone: Start: 12-21-[address] Karin Quarles Work Phone: Start: 10-29-[address] Karin Quarles Work Phone: Urine culture Dr. Karin Quarles Work Phone: Plan of Treatment Date Care Activity Detail Author Trichomonas vaginali s rRNA [Presence] in Genital specimen by [facility] Work Phone: Immunizations Immunization Date Immunization Notes Care Provider Belle moran 03-19-2022 influenza, seasonal, injectable Dr. Karin Quarles Work Phone: [facility] 05-15-2021 Covid (Pfizer) Dr. Karin Quarles Work Phone: [facility] 05-11-2021 influenza, seasonal, injectable Dr. Karin Quarles Work Phone: [facility] 04-24-2021 Covid (Pfizer) Dr. Karin Quarles Work Phone: [facility] 02-19-2019 influenza, seasonal, injectable Dr. Karin Quarles Work Phone: [facility] 02-26-2018 influenza, seasonal, injectable Dr. Karin Quarles Work Phone: [facility] 05-25-2016 tetanus and diphther ia toxoids, adsorbed, preservative free, for adult use (2 Lf of tetanus toxoid and 2 Lf of diphtheria toxoid) Dr. Karin Quarles Work Phone: [facility] 04-11-2015 influenza, seasonal, injectable Dr. Karin Quarles Work Phone: [facility] 12-16-2014 hepatitis B vaccine, pediatric or pediatric/adolescent dosage Dr. Karin Quarles Work Phone: [facility] 11-15-2014 hepatitis B vaccine, pediatric or pediatric/adolescent dosage Dr. Karin Quarles Work Phone: [facility] Payers Date Payer Category Payer Unknown [id number] 2024 Unknown [id number] 2023 Self-pay [id number] 2017 Unknown [id number] Unknown [facility] [id number] Unknown [id number] Unknown [id number] 2.16.8 [id number] Unknown [id number] 2.16.8 [id number] Unknown [id number] 2.16.8 [id number] Unknown [id number] 2.16.8 [id number] Unknown [id number] 2.16.8 [id number] Unknown [id number] 2.16.8 [id number] Unknown [id number] 2.16.8 [id number] Unknown [id number] 2.16.8 [id number] Unknown [id number] 2.16.8 [id number] Unknown [id number] 2.16.8 [id number] Unknown [id number] 2.16.8 [id number] Unknown [id number] 2.16.8 [id number] Unknown [id number] 2.16.8 [id number] Social History Date Type Detail Facility Start: 03-21-2022 End: 12-18-2022 Tobacco smoking status RIIS Unknown if ever smoked [facility] Start: 04-16-2019 Non-smoker [facility] Start: 1995 Sex Assigned At Female W [facility] Medical Equipment Procedure Code Equipment Code Equipment Original Text Equipment Identifier Dates Total cholecystectomy with exploration of common bile duct CLIP,ALVARADO LOPEZ FDA Start: 02-20-2019 Total cholecystectomy with exploration of common bile duct CLIP,ALVARADO BOYCECK FDA Start: 02-20-2019 Total cholecystectomy with exploration of common bile duct CLIP,ALVARADO LOPEZ FDA Start: 02-20-2019 Total cholecystectomy with exploration of common bile duct CLIP,ALVARADO BOYCECK FDA Start: 02-20-2019 Total cholecystectomy with exploration of common bile duct CLIP,ALVARADO LOPEZ FDA Start: 02-20-2019 Total cholecystectomy with exploration of common bile duct CLIP,ALVARADO LOPEZ FDA Start: 02-20-2019 Total cholecystectomy with exploration of common bile duct CLIP,HEMSISSY LOPEZ FDA Start: 02-20-2019 Total cholecystectomy with exploration of common bile duct CLIP,ALVARADO LOPEZ FDA Start: 02-20-2019 Total cholecystectomy with exploration of common bile duct CLIP,ALVARADO LOPEZ FDA Start: 02-20-2019 Total cholecystectomy with exploration of common bile duct CLIP,ALVARADO LOPEZ FDA Start: 02-20-2019 Total cholecystectomy with exploration of common bile duct CLIP,ALVARADO LOPEZ FDA Start: 02-20-2019 Total cholecystectomy with exploration of common bile duct CLIP,ALVARADO LOPEZ FDA Start: 02-20-2019 Goals Date Patient Goal Desired Activity /State Clinical Note 09-05-2022 Note Date & Type Note Facility 09-05-2022 Note [facility] Pap Smear Specimen Adequacy September 05, 2022 4:22pm Comment . Satisfactory for evaluation. Endocervical and/or squamous metaplasticcells (endocervical component) are present. Comment on above: Satisfactory for shakira luation. Endocervical and/or squamous metaplasticcells (endocervical component) are present. Clinical Note 09-05-2022 Note Date & Type Note Facility 09-05-2022 Note [facility] Pap Smear Specimen Adequacy September 05, 2022 4:22pm Comment . Satisfactory for evaluation. Endocervical and/or squamous metaplasticcells (endocervical component) are present. Comment on above: Satisfactory for shakira luation. Endocervical and/or squamous metaplasticcells (endocervical component) are present. Progress note 06-02-2021 Note Date & Type Note Facility 06-02-2021 Note HNO ID: [id number] Author: Gilberto Rodriguez PT Service: ? Author Type: Physical Therapist Type: Progress Notes Filed: 06/02/2021 4:12 PM Note Text: Episode Visit Count: 3 Therapist That Will Oversee The Plan Of Care: Gilberto Rodriguez Start of Care Date: 05/01/21 Onset Date: 02/13/21 Patient Identified by Name and Date of : Yes REHABILITATION AND SPORTS THERAPY PHYSICAL THERAPY DISCONTINUANCE OF CARE PLAN OF CARE UPDATE: Assessment: Micaela Blanco is discontinued from Physical Therapy services due to goal achievement and maximal benefit.. Patient was seen for 3 visits from Start of Care Date: 05/01/21 to 06/02/2021 and treatment included: Therapeutic exercise. Goals for Episode of Care: created on 05/01/21 Updated on: 06/02/2021 [place] in home exercise program.-MET Patient will demonstrate increase in core strength to at least 4/5 during manual muscle testing in order to improve function for prior functional Tasks.-MET Incontinence: Increase strength of pelvic floor to Power: at least 3/5-MET Patient able to cough, sneeze, lift and/or exercise without leaking-MET Patient demonstrates ability to correctly isolate pelvic floor muscles-MET Patient reports at least 80% improvement in POP symptoms-MET Patient Goals: improve bladder function, improve POP SUBJECTIVE: Patient Reason for Visit: Pt reports feeling like her core and pelvic floor are stronger. Pt reports no SURESH, denies pelvic pressure. Pt reports good compliance with HEP. Pt reports only feeling pelvic pressure with more intense lifting, pressure subsides shortly after. Pt reports being pleased with progress, feels comfortable continuing on her own at home. Pain: Pain Pain Level: 0 Post Treatment Pain Post Treatment Pain Level: 0 PROMIS Scales Higher is Better 04/29/2021 Phys Func - Score 49 (within normal limits) Phys Func - Percentile 46 % Social Roles - Score 52 (within normal limits) Social Role - Percentile 58 % GH Physical - Score 57.7 (Very Good) GH Physical - Percentile 78 % GH Mental - Score 56 (Excellent) GH Mental - Percentile 73 % Self-Eff Symptom - Score 44 (Average) Self-Eff Symptom - Percentile 27 % T-scores: mean of general population = 50. 5 points is clinically meaningfully difference Percentiles provide an indication of how the patient's score ranks in relation to the general population. Higher percentile rankings indicate better function/quality of life. 50th percentile is the average of the general population and indicates half of respondents had a worse score. Lower is Better 04/29/2021 Fatigue - Score 49 (within normal limits) Fatigue - Percentile 54 % T-scores: mean of general population = 50. 5 points is clinically meaningfully difference Percentiles provide an indication of how the patient's score ranks in relation to the general population. Higher percentile rankings indicate better function/quality of life. 50th percentile is the average of the general population and indicates half of respondents had a worse score. OBJECTIVE MEASURES WITH LEVEL OF FUNCTION: Pelvic Floor Stress Incontinence: No Pelvic Floor Muscle Assessment Consent for pelvic assessment/testing and treatment: Patient was educated regarding pelvic floor physical therapy assessment/treatment which may include pelvic floor and girdle muscle assessment externally or internally (vaginal or rectal approach).;Patient verbalized consent for the above treatment approaches today. Patient understands they have control of the treatment and an opportunity to stop treatment at any time. Pelvic Floor Muscle Assessment: PERFECT;Muscle Dynamics Power: 3 Endurance: 6 Fast Reps: 10 Contracton Pressure: Moderate squeeze, felt all the way around finger surface Duration of Contraction: >3 seconds Recruitment of pelvic floor muscles: Coordinated Pelvic Floor Manual Assessment Pelvic Floor Tenderness/Hyperactivity: Tested Vaginally in Tested Vaginally in : Supine/hooklying (No tightness/tenderness noted.) LE Strength Trunk Strength: Lower Abdominals: 4/5 TREATMENT: Therapeutic Exercise: 1: Reassessment 2: *clamshells, 2x10 3: *sidelying hip abduction, 2x10 each 4: *quadruped TA bracing, 2x10 5: Discussed discharge planning Skilled Intervention: Patient was educated in proper exercise technique and purpose for exercises. Reviewed and educated patient on additions/changes for home exercise program as above (*). Skilled judgment was provided in selection of appropriate interventions. Provided written instruction for home exercise program to facilitate proper performance and compliance. Billing Therapeutic Exercise Treatment Minutes: 32 Total Treatment Time Minutes (timed and untimed codes) : 32 Gilberto Rodriguez PT [facility] Progress note 05-08-2021 Note Date & Type Note Facility 05-08-2021 Note HNO ID: [id number] Author: Gilberto Rodriguez PT Service: ? Author Type: Physical Therapist Type: Progress Notes Filed: 05/08/2021 1:13 PM Note Text: Episode Visit Count: 2 Therapist That Will Oversee The Plan Of Care: Gilberto Rodriguez Start of Care Date: 05/01/21 Onset Date: 02/13/21 Patient Identified by Name and Date of : Yes REHABILITATION AND SPORTS THERAPY PHYSICAL THERAPY TREATMENT NOTE ASSESSMENT: Micaela Blanco demonstrated improvements in pelvic floor coordination as exhibited by biofeedback (see objective). The patient will continue to benefit from ongoing skilled physical therapy to increase strength and improve pelvic organ prolapse. PLAN FOR NEXT VISIT: continue to progress strengthening exercises SUBJECTIVE: Patient Reason for Visit: Pt reports good compliance with HEP. Pt reports feeling some pelvic pressure after a BM but feels okay otherwise. Pain: Pain Pain Level: 0 Post Treatment Pain Post Treatment Pain Level: 0 OBJECTIVE MEASURES WITH LEVEL OF FUNCTION: Pelvic Floor Surface EMG: Patient Position: sidelying Rest tone: 3.0 uV Flick strength: 10.0 uV Pt performed 3 quick flicks within 10 sec. Pt able to hold a 10.0 uV pelvic floor contraction for 2 seconds before demonstrating muscle fatigue. TREATMENT: Therapeutic Exercise: 1: Reviewed pelvic floor contractions with visual assistance from biofeedback (see objective) 2: *kegal holds, 2sec hold with 2sec rest, 2x10 3: *bridge with glute activation, 2x10 4: *hooklying hip abduction, L4 TB, 2x10 Skilled Intervention: Patient was educated in proper exercise technique and purpose for exercises. Reviewed and educated patient on additions/changes for home exercise program as above (*). Skilled judgment was provided in selection of appropriate interventions. Provided written instruction for home exercise program to facilitate proper performance and compliance. Billing Therapeutic Exercise Treatment Minutes: 30 Total Treatment Time Minutes (timed and untimed codes) : 30 Decreased visit time due to patient arriving late to appointment. Gilberto Rodriguez PT [facility] Progress note 05-01-2021 Note Date & Type Note Facility 05-01-2021 Note HNO ID: [id number] Author: Gilberto Rodriguez PT Service: ? Author Type: Physical Therapist Type: Progress Notes Filed: 05/01/2021 6:40 PM Note Text: Episode Visit Count: 1 Therapist That Will Oversee The Plan Of Care: Gilberto Rodriguez Start of Care Date: 05/01/21 Onset Date: 02/13/21 Patient Identified by Name and Date of : Yes REHABILITATION AND SPORTS THERAPY PHYSICAL THERAPY EVALUATION PLAN OF CARE: Assessment: Micaela Blanco presents with the chief complaint of pelvic organ prolapse. She presents with impairments of decreased core and pelvic floor strength; pelvic organ prolapse; impaired bladder function. She may benefit from skilled therapy services to increase strength, improve POP symptoms, improve bladder function, and improve overall functional activities. Prognosis: Good Good due to: current objective clinical presentation Goals for Episode of Care: created on 05/01/21 through 07/30/21 [place] in home exercise program. Patient will demonstrate increase in core strength to at least 4/5 during manual muscle testing in order to improve function for prior functional tasks. Incontinence: Increase strength of pelvic floor to Power: at least 3/5 Patient able to cough, sneeze, lift and/or exercise without leaking Patient demonstrates ability to correctly isolate pelvic floor muscles Patient reports at least 80% improvement in POP symptoms Patient Goals: improve bladder function, improve POP Planned Interventions, Frequency, and Duration: Current Frequency: 1x/week Duration: 4 weeks (reassess at 4 weeks and progress as indicated) Total Number of Visits Planned: 4 Planned Treatment Interventions: Therapeutic exercise (38263);Manual therapy (02270);Self-mcc management (59115);Patient/Family/Caregiver Education PLAN FOR NEXT VISIT: biofeedback, progress strengthening exercises Patient demonstrates good understanding of plan of care and treatment. The above goals and plan of care were discussed and agreed upon by patient/family. SUBJECTIVE: Pt reports delivering son 11 weeks ago, forceps delivery, 4th degree tear. Pt reports OB-COMPUTER GAME TESTER diagnosed pt with a rectocele at 6 week follow up. 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 Recreation / Current Exercise: [place] PAST MEDICAL HISTORY Diagnosis Date - Chronic cholecystitis 01/2019 - NEGATIVE MEDICAL HISTORY PAST SURGICAL HISTORY Procedure Laterality Date - LAP CHOLECYSTECT/CHOLANGIOGRAPHY 02/20/2019 - PAST SURGICAL HISTORY OF 2014 wisdom teeth extraction - TONSILLECTOMY AND ADENOIDECTOMY HX 2001 Intake Information: Prescription present Previous Treatment: None Falls Interview: No positive findings with falls interview Aquatic Screen: No Pain: Pain Pain Level: 0 Pain Location: (pelvic floor) Post Treatment Pain Post Treatment Pain Level: No Change PROMIS Scales Higher is Better 04/29/2021 Phys Func - Score 49 (within normal limits) Phys Func - Percentile 46 % Social Roles - Score 52 (within normal limits) Social Role - Percentile 58 % GH Physical - Score 57.7 (Very Good) GH Physical - Percentile 78 % GH Mental - Score 56 (Excellent) GH Mental - Percentile 73 % Self-Eff Symptom - Score 44 (Average) Self-Eff Symptom - Percentile 27 % T-scores: mean of general population = 50. 5 points is clinically meaningfully difference Percentiles provide an indication of how the patient's score ranks in relation to the general population. Higher percentile rankings indicate better function/quality of life. 50th percentile is the average of the general population and indicates half of respondents had a worse score. Lower is Better 04/29/2021 Fatigue - Score 49 (within normal limits) Fatigue - Percentile 54 % T-scores: mean of general population = 50. 5 points is clinically meaningfully difference Percentiles provide an indication of how the patient's score ranks in relation to the general population. Higher percentile rankings indicate better function/quality of life. 50th percentile is the average of the general population and indicates half of respondents had a worse score. OBJECTIVE MEASURES WITH LEVEL OF FUNCTION: Pelvic Floor Control Method: IUD Pregnancies: 1 Births: 1 Vaginal Delivery: Forceps;Tearing Currently ?: Yes Pain with penetration: No Sexual Health: Has not returned to sexually activity since delivery. Urinary/Bowel History : Urinary History;Bowel History Difficulty starting stream: No Incomplete emptying: No Stress Incontinence: Cough/sneeze Urgency: No Nocturia (times per night): 0 Daytime Frequency (more content not included)... [facility] Evaluation note Note Date & Type Note Facility Evaluation note Diagnosis Onset Date Segmental and somatic dysfun ction of cervical region acute Segmental and somatic dysfun ction of lumbar region acute Segmental and somatic dysfun ction of pelvic region acute Segmental and somatic dysfun ction of thoracic region acute Burning with urination acute Physical examination of employee acute Suprapubic pain acute [facility] Work Phone: Evaluation note Note Date & Type Note Facility Evaluation note Diagnosis Onset Date Segmental and somatic dysfun ction of cervical region acute Segmental and somatic dysfun ction of lumbar region acute Segmental and somatic dysfun ction of thoracic region acute Rectocele acute Encounter for routine gyneco logical examination noneactive [facility] Work Phone: Evaluation note Note Date & Type Note Facility Evaluation note Diagnosis Onset Date Rectocele acute Encounter for routine gyneco logical examination noneactive Lump of axilla acute Segmental and somatic dysfun ction of lumbar region acute Segmental and somatic dysfun ction of pelvic region acute Segmental and somatic dysfun ction of lumbar region acute Segmental and somatic dysfun ction of pelvic region acute Left breast mass acute [facility] Work Phone: Summary Purpose Family History No Family History Records Found Relationship Condition Age at Onset Recorded Date/T enedina Not Specified Diabetes mellitus Unknown Cardiac disease Unknown Hypercholesterolemia Unknown Malignant neoplasm Unknown Hypertension Unknown Advance Directives No Advanced Directives Records Found Advance Directive Response Recorded Date/ Time Advance Directives No April 12:18am Living Will No February 12, 2021 9:10am Power of Tube Operator No January 9:10am Advance Directive Response Recorded Date/ Time Advance Directives No April 11:18pm Living Will No February 12, 2021 8:10am Power of Tube Operator No January 8:10am Chief Complaint and Reason for Visit Chief Complaint LBP UTI SYMPTOMS Reason for Visit Segmental and somati c dysfunction of cervical region Segmental and somatic dysfunction of lumbar region Segmental and somatic dysfunction of pelvic region Segmental and somatic dysfunction of thoracic region Burning with urination Physical examination of employee Suprapubic pain Chief Complaint Back pain 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 TESTER) Reason for Visit Segmental and somati c dysfunction of cervical region Segmental and somatic dysfunction of lumbar region Segmental and somatic dysfunction of thoracic region Rectocele Encounter for routine gynecological examination Chief Complaint 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 GAME TESTER) Lump left armpit LUMP OF AXILLA Back pain Back pain left breast lump BREAST MASS Reason for Visit Rectocele Encounter for routine gynecological examination Lump of axilla Segmental and somatic dysfunction of lumbar region Segmental and somatic dysfunction of pelvic region Segmental and somatic dysfunction of lumbar region Segmental and somatic dysfunction of pelvic region Left breast mass Additional Source Comments INFORMATION SOURCE (unrecogn ized section and content) DATE CREATED AUTHOR 11/12/2017 [facility] ([place]) DATE CREATED AUTHOR AUTHOR'S ORGANIZ ATION 08/18/2021 [facility] DATE CREATED AUTHOR AUTHOR'S ORGANIZ ATION 10/27/[address] [facility] Care Teams (unrecognized sec tion and content) Team Status: Active Member Role Status Dates Dr. Karin Quarles MD Primary Care Provider Active Team Status: Inactive Member Role Status Dates Dr. Karin Quarles MD Primary Care Provider, Refer ring Provider Active Sofiya Hernadez [employer], [employer] Attending Provider Active Team Status: Inactive Member Role Status Dates Dr. Karin Quarles MD Primary Care Provider, Refer ring Provider Active Dr. Mindi Cameron DC Attending Provider Active Team Status: Inactive Member Role Status Dates Dr. Karin Quarles MD Primary Care Provider Active Sofiya Hernadez [employer], [employer] Attending Provider, Referring Provider Active Team Status: Inactive Member Role Status Dates Dr. Karin Quarles MD Primary Care Provider, Refer ring Provider Active Tawnya Padgett CNM Attending Provider Active Team Status: Inactive Member Role Status Dates Dr. Karin Quarles MD Primary Care Provider Active Tawnya Padgett CNM Attending Provider, Referring Pro vider Active FOR RECORDS PERTAINING TO PATIENTS WHO ARE OR HAVE BEEN ENROLLED IN A CHEMICAL DEPENDENCY/SUBSTANCEABUSE PROGRAM, SOME INFORMATION MAY BE OMITTED. This clinical summary was aggregated from multiple sources. Caution should be exercised in using it in the provision of clinical care. This summary normalizes information from multiple sources, and as a consequence, information in this document may materially change the coding, format and clinical context of patient data. In addition, data may be omitted in some cases. CLINICAL DECISIONS SHOULD BE BASED ON THE PRIMARY CLINICAL RECORDS. [employer] provides no warranty or guarantee of the accuracy or completeness of information in this document.
== END | disposition home or self-care (01) ==
LOC: US 09:40
PROVIDERS: PCP Internal Medicine; Referring Provider Obstetrics & Gynecology; Visit Provider Obstetrics & Gynecology
DX: N83.9 Noninflammatory disorder of ovary, fallopian tube and broad ligament, unspecified (principal)
CPT/HCPCS: 76830